=== PATIENT | female | born 1985 | race Caucasian/White ===

== ENCOUNTER 2016-12-21 14:47 | Emergency (ER) | payer OTHER ==
[~2016-12-21] VITALS: Ht 175.3 cm; Wt 91.0 kg
[~2016-12-21 14:47] MED LIST: FOLI5CAP PO; LAMO150 PO
[2016-12-21 14:58] VITALS: BP 119/75; PULSE 89; RESP 22; TEMP 98.9; O2SAT 100
[2016-12-21 15:02] VITALS: BP 119/75; PULSE 95; RESP 22; TEMP 98.9; O2SAT 100
[2016-12-21] MEDS ORDERED: SODIUM CHLOR 0.9% 1000 ML INJ 1,000 ML IV SCH (15:23)
[2016-12-21 15:28] VITALS: O2SAT 99
[2016-12-21] MEDS ORDERED: SODIUM CHLORIDE 0.9% FLUSH 5 ML FLUSH IVF PRN (15:30)
--- NOTE | 2016-12-21 15:48 | RADRPT ---
EXAM DATE/TIME: 12/21/2016 15:30 [facility] COMPARISON: No previous studies available for comparison. INDICATIONS : Pain from fall. MEDICAL HISTORY : None. SURGICAL HISTORY : None. ENCOUNTER: Initial ACUITY: 1 day PAIN SCORE: 5/10 LOCATION: Right shoulder. FINDINGS: Multiple view examination of the right shoulder demonstrates no evidence of fracture or dislocation. The glenohumeral and acromioclavicular joints are maintained. There is normal range of motion betwe en internal and external rotation. Bony mineralization is normal. CONCLUSION: No acute fracture. Saravanan Batista MD on December 21, 2016 at 15:46 Board Certified Radiologist. This report was verified electronically.
--- NOTE | 2016-12-21 15:57 | RADRPT ---
EXAM DATE/TIME: 12/21/2016 15:43 [facility] COMPARISON: CT BRAIN W/O CONTRAST, October 18, 2016, 23:24. INDICATIONS : Seizures. RADIATION DOSE: 37.38 CTDIvol (mGy) MEDICAL HISTORY : Seizures. SURGICAL HISTORY : Vagal nerve stimulator. ENCOUNTER: Initial ACUITY: 1 day PAIN SCALE: 3/10 LOCATION: cranial TECHNIQUE: Multiple contiguous axial images were obtained of the head. Using automated exposure control and adj ustment of the mA and/or kV according to patient size, radiation dose was kept as low as reasonably a chievable to obtain optimal diagnostic quality images. FINDINGS: CEREBRUM: The ventricles are normal for age. No evidence of midline shift, mass lesion, hemorrhage or acute in farction. No extra-axial fluid collections are seen. POSTERIOR FOSSA: The cerebellum and brainstem are intact. The 4th ventricle is midline. The cerebellopontine angle i s unremarkable. EXTRACRANIAL: The visualized portion of the orbits is intact. SKULL: The calvaria is intact. No evidence of skull fracture. CONCLUSION: No acute intracranial disease. Saravanan Batista MD on December 21, 2016 at 15:55 Board Certified Radiologist. This report was verified electronically.
--- NOTE | 2016-12-21 16:02 | RADRPT ---
EXAM DATE/TIME: 12/21/2016 15:43 [facility] COMPARISON: No previous studies available for comparison. INDICATIONS : Seizures. RADIATION DOSE: 17.62 CTDIvol (mGy) MEDICAL HISTORY : Seizures. SURGICAL HISTORY : Vagal nerve stimulator. ENCOUNTER: Initial ACUITY: 1 day PAIN SCALE: 4/10 LOCATION: neck TECHNIQUE: Volumetric scanning of the cervical spine was performed. Multiplanar reconstructions in the sagittal, coronal and oblique axial planes were performed. Using automated exposure control and adjustment o f the mA and/or kV according to patient size, radiation dose was kept as low as reasonably achievable to obtain optimal diagnostic quality images. FINDINGS: VERTEBRAE: Normal vertebral body height. There is no fracture. No canal stenosis. ALIGNMENT: No evidence of subluxation. Facets are well aligned. CONCLUSION: 1. No fracture or subluxation. Saravanan Batista MD on December 21, 2016 at 15:58 Board Certified Radiologist. This report was verified electronically.
--- NOTE | 2016-12-21 16:45 | PD ---
HPI Chief Complaint: Seizure Time Seen by Provider: 15:21 Travel History International Travel<30 days: No Contact w/Intl Traveler<30days: No Traveled to known affect area: No History of Present Illness HPI Patient is a 31-year-old female presents emergency Department with recurrent seizure. Patient has a history of seizure disorders on Lamictal which she states she's been taking. Apparently she had one seizure earlier this morning which she was sitting in a chair and did not have any injuries, they called 911 today because patient had an additional seizure this afternoon in which she apparently hit her head and right shoulder. Patient states she thinks she had a seizure, she states she's been on multiple medication regimens in the past and nothing works to control her seizures. She has been [facility] Patient with complaint on arrival is headache as well as right shoulder pain. PFSH Past Medical History Arthritis: No Asthma: No Autoimmune Disease: No Blood Disorders: No Anxiety: No Depression: No Heart Rhythm Problems: No Cancer: No Cardiovascular Problems: No Chemotherapy: No Chest Pain: No Congestive Heart Failure: No COPD: No Cerebrovascular Accident: No Diabetes: No Diminished Hearing: No Endocrine: No Gastrointestinal Disorders: No GERD: No Genitourinary: No Headaches: Yes Hiatal Hernia: No Hypertension: No Immune Disorder: No Implanted Vascular Access Dvce: Yes Kidney Stones: No Musculoskeletal: No Neurologic: Yes Psychiatric: No Reproductive: No Respiratory: No Immunizations Current: Yes Migraines: Yes Radiation Therapy: No Renal Failure: No Seizures: Yes Sickle Cell Disease: No Sleep Apnea: No Thyroid Disease: No Ulcer: No ?: Not LMP: 12/04/16 Menopausal: No : 2 Para: 2 Ovarian Cysts: Yes Past Surgical History Abdominal Surgery: No AICD: No Arteriovenous Shunt: No Body Medical Devices: VAGAL NERVE STIMULATOR Cardiac Surgery: No Ear Surgery: No Endocrine Surgery: No Eye Surgery: No Genitourinary Surgery: No Gynecologic Surgery: No Insulin Pump: No Joint Replacement: No Neurologic Surgery: Yes (VAGAL NERVE STIMULATOR) Oral Surgery: No Pacemaker: No Thoracic Surgery: No Social History Alcohol Use: No Tobacco Use: No Substance Use: No Allergies-Medications (Allergen,Severity, Reaction): Coded Allergies: No Known Allergies (Verified , 12/21/16) Reported Meds & Prescriptions Reported Meds & Active Scripts Active Reported Folic Acid 5 Mg Cap 1 Mg PO DAILY Lamictal (Lamotrigine) 150 Mg Tab 150 Mg PO DAILY Review of Systems Except as stated in HPI: all other systems reviewed are Neg Physical Exam Narrative GENERAL: Well-developed well-nourished no apparent distress. SKIN: Warm and dry. HEAD: Atraumatic. Normocephalic. EYES: Pupils equal and round. No scleral icterus. No injection or drainage. ENT: No nasal bleeding or discharge. Mucous membranes pink and moist, tongue normal, oropharynx clear. NECK: Trachea midline. No JVD. CARDIOVASCULAR: Regular rate and rhythm. No murmur appreciated. RESPIRATORY: No accessory muscle use. Clear to auscultation. Breath sounds equal bilaterally. GASTROINTESTINAL: Abdomen soft, non-tender, nondistended. Hepatic and splenic margins not palpable. MUSCULOSKELETAL: No obvious deformities. No clubbing. No cyanosis. No edema. Minimal non-bony tenderness the right shoulder, no tenderness right elbow, left shoulder normal, left elbow normal. No midline CT or L-spine tenderness. NEUROLOGICAL: Awake and alert. No obvious cranial nerve deficits. Motor grossly within normal limits. Normal speech. PSYCHIATRIC: Appropriate mood and affect; insight and judgment normal. Data Data Last Documented VS Vital Signs Date Time Temp Pulse Resp B/P Pulse Ox O2 Delivery O2 Flow Rate FiO2 12/21/16 18:00 100 22 111/66 100 Room Air 12/21/16 15:[address] Brain W/O Iv Contrast(Rout) (12/21/16 ) Ct Cerv Spine W/O Contrast (12/21/16 ) Shoulder, Complete (>2vws) (12/21/16 ) Iv Access Insert/Monitor (12/21/16 15:23) Ecg Monitoring (12/21/16 15:23) Oximetry (12/21/16 15:23) Sodium Chlor 0.9% 1000 Ml Inj (Ns 1000 M (12/21/16 15:23) Sodium Chloride 0.9% Flush (Ns Flush) (12/21/16 15:30) Remove Cervical Collar (12/21/16 16:28) Remove Cervical Collar (12/21/16 16:28) MDM Medical Decision Making Medical Screen Exam Complete: Yes Emergency Medical Condition: Yes Differential Diagnosis Recurrent seizure, head injury, neck injury. Narrative Course Patient was roomed emergency department, log rolled off the spine board and had no evidence of injury on her person. CT head and C-spine are negative. Head no additional seizure activity in the emergency department. She is a and had full return of consciousness after postictal phase in the field. Chest with her need for follow-up the neurologist. She is stable for discharge at this time. Discussed continuing her Lamictal therapy. Diagnosis Primary Impression: Recurrent seizures Disposition: DISCHARGE HOME Condition: Stable Mike Moss MD Dec 21, 2016 16:45
[2016-12-21 17:00] VITALS: BP 103/69; PULSE 88; RESP 15; O2SAT 100
[2016-12-21 18:00] VITALS: BP 111/66; PULSE 100; RESP 22; O2SAT 100
== END 2016-12-21 19:30 | disposition home or self-care (01) ==
LOC: NEPE 14:47
DX: R56.9 Unspecified convulsions (principal)
CPT/HCPCS: 70450; 72125; 73030; 96360; 99284; J7030

== ENCOUNTER 2017-05-02 09:26 | Emergency (ER) | payer OTHER ==
[~2017-05-02] VITALS: Ht 170.2 cm; Wt 90.0 kg
[2017-05-02 09:29] VITALS: BP 112/55; PULSE 86; RESP 24; TEMP 98.6; O2SAT 100
[2017-05-02 09:32] VITALS: BP 114/70; PULSE 87; RESP 20; TEMP 98.2; O2SAT 98
[2017-05-02] MEDS ORDERED: MAGN400T2 PO (09:43)
[2017-05-02] MEDS ORDERED: LAMO200T PO (09:43)
[2017-05-02] MEDS ORDERED: FOLI800T PO (09:43)
[2017-05-02] MEDS ORDERED: LORA-373 PO (09:43)
[2017-05-02] MEDS ORDERED: NAPR500T PO (09:43)
[2017-05-02] MEDS ORDERED: TIZA2CAP3 PO (09:43)
[2017-05-02] MEDS ORDERED: TETANUS/DIPHTHERIA TOXOID ADULT 0.5 ML VIAL IM ONE (09:45)
--- NOTE | 2017-05-02 09:59 | PD ---
HPI Chief Complaint: Seizure Time Seen by Provider: 09:37 Travel History International Travel<30 days: No Contact w/Intl Traveler<30days: No Traveled to known affect area: No History of Present Illness HPI 31-year-old female was brought by EMS after the seizure and chin laceration. Patient has history of recurrent seizure. Patient is on Lamictal. Patient's boyfriend states the patient has not taken her medications this morning. Patient had a seizure at home this morning. Patient fell and lacerated her chin. Patient was brought in by EMS. Patient states that she has mild headache. Patient denies any neck pain. Patient complained of jaw pain and laceration to the chin. Patient states that she is not up-to-date with TD booster. Patient denies any chest pain or shortness of breath. Patient denies abdominal pain. Patient denies any focal weakness or numbness of extremity. Patient was on multiple medications in the past. Patient states that she had breakthrough seizures in the past despite multiple medications. Patient has been seen by neurologist including [facility] in [place]. PFSH Past Medical History Arthritis: No Asthma: No Autoimmune Disease: No Blood Disorders: No Anxiety: No Depression: No Heart Rhythm Problems: No Cancer: No Cardiovascular Problems: No Chemotherapy: No Chest Pain: No Congestive Heart Failure: No COPD: No Cerebrovascular Accident: No Diabetes: No Diminished Hearing: No Endocrine: No Gastrointestinal Disorders: No GERD: No Genitourinary: No Headaches: Yes Hiatal Hernia: No Hypertension: No Immune Disorder: No Implanted Vascular Access Dvce: Yes Kidney Stones: No Musculoskeletal: No Neurologic: Yes Psychiatric: No Reproductive: No Respiratory: No Immunizations Current: Yes Migraines: Yes Radiation Therapy: No Renal Failure: No Seizures: Yes Sickle Cell Disease: No Sleep Apnea: No Thyroid Disease: No Ulcer: No ?: Not LMP: 3 weeks ago Menopausal: No : 2 Para: 2 Ovarian Cysts: Yes Past Surgical History Abdominal Surgery: No AICD: No Arteriovenous Shunt: No Body Medical Devices: VAGAL NERVE STIMULATOR Cardiac Surgery: No Ear Surgery: No Endocrine Surgery: No Eye Surgery: No Genitourinary Surgery: No Gynecologic Surgery: No Insulin Pump: No Joint Replacement: No Neurologic Surgery: Yes (VAGAL NERVE STIMULATOR) Oral Surgery: No Pacemaker: No Thoracic Surgery: No Social History Alcohol Use: No Tobacco Use: No Substance Use: No Allergies-Medications (Allergen,Severity, Reaction): Coded Allergies: No Known Allergies (Verified , 12/21/16) Reported Meds & Prescriptions Reported Meds & Active Scripts Active Reported Folic Acid 800 Mcg Tab 1,000 Mcg PO DAILY Lamotrigine 200 Mg Tab 200 Mg PO BID Lorazepam 0.5 Mg Tab 0.5 Mg PO BID PRN Tizanidine (Tizanidine HCl) 2 Mg Cap 2 Mg PO TID Magnesium Oxide 400 Mg Tab 400 Mg PO DAILY Naproxen 500 Mg Tab 500 Mg PO BID Review of Systems General / Constitutional: No: Fever Eyes: No: Visual changes HENT: No: Headaches Cardiovascular: No: Chest Pain or Discomfort Respiratory: No: Shortness of Breath Gastrointestinal: No: Abdominal Pain Genitourinary: No: Dysuria Musculoskeletal: No: Pain Skin: No Rash Neurologic: No: Weakness Psychiatric: No: Depression Endocrine: No: Polydipsia Hematologic/Lymphatic: No: Easy Bruising Physical Exam Narrative GENERAL: Well-nourished, well-developed patient. SKIN: Focused skin assessment warm/dry. HEAD: Normocephalic. Patient has a 2 cm laceration to the chin. EYES: No scleral icterus. No injection or drainage. Pupils 3 mm equal reactive. NECK: Supple, trachea midline. No JVD or lymphadenopathy. CARDIOVASCULAR: Regular rate and rhythm without murmurs, gallops, or rubs. RESPIRATORY: Breath sounds equal bilaterally. No accessory muscle use. GASTROINTESTINAL: Abdomen soft, non-tender, nondistended. MUSCULOSKELETAL: No cyanosis, or edema. BACK: Nontender without obvious deformity. No CVA tenderness. Neurologic exam: Patient is lethargic, typical postictal state. Patient moves all extremities well. No obvious focal neurological deficit. Data Data Last Documented VS Vital Signs Date Time Temp Pulse Resp B/P Pulse Ox O2 Delivery O2 Flow Rate FiO2 05/02/17 10:09 99 05/02/17 09:32 98.2 87 20 114/70 05/02/17 09:29 Room Air Orders Electrocardiogram (05/02/17 09:43) Complete Blood Count With Diff (05/02/17 09:43) Basic Metabolic Panel (Bmp) (05/02/17 09:43) Prothrombin Time / Inr (Pt) (05/02/17 09:43) Act Partial Throm Time (Ptt) (05/02/17 09:43) Ct Brain W/O Iv Contrast(Rout) (05/02/17 09:43) Iv Access Insert/Monitor (05/02/17 09:43) Ecg Monitoring (05/02/17 09:43) Oximetry (05/02/17 09:43) Ed Urine Pregnancytest Poc (05/02/17 09:43) Ct Cerv Spine W/O Contrast (05/02/17 09:43) Ct Facial Bones W/O Iv Cont (05/02/17 09:43) Tetanus/Diphtheria Tox Adult (Tetanus/Di (05/02/17 09:45) Lidocai-Epi 1%-1:100,000 Inj (Xylocaine- (05/02/17 10:00) Ketorolac Inj (Toradol Inj) (05/02/17 11:30) Acetamin-Hydrocod 325-5 Mg ([place] 5-325 (05/02/17 12:00) Labs Laboratory Tests Test 05/02/17 09:50 White Blood Count 5.6 TH/MM3 Red Blood Count 4.49 MIL/MM3 Hemoglobin 12.8 GM/DL Hematocrit 38.4 % Mean Corpuscular Volume 85.7 FL Mean Corpuscular Hemoglobin 28.6 PG Mean Corpuscular Hemoglobin 33.4 % Concent Red Cell Distribution Width 15.0 % Platelet Count 248 TH/MM3 Mean Platelet Volume 8.1 FL Neutrophils (%) (Auto) 66.6 % Lymphocytes (%) (Auto) 23.4 % Monocytes (%) (Auto) 7.4 % Eosinophils (%) (Auto) 1.8 % Basophils (%) (Auto) 0.8 % Neutrophils # (Auto) 3.7 TH/MM3 Lymphocytes # (Auto) 1.3 TH/MM3 Monocytes # (Auto) 0.4 TH/MM3 Eosinophils # (Auto) 0.1 TH/MM3 Basophils # (Auto) 0.0 TH/MM3 CBC Comment DIFF FINAL Differential Comment Prothrombin Time 10.5 SEC Prothromb Time International 1.0 RATIO Ratio Activated Partial 24.5 SEC Thromboplast Time Sodium Level 138 MEQ/L Potassium Level 4.0 MEQ/L Chloride Level 106 MEQ/L Carbon Dioxide Level 26.5 MEQ/L Anion Gap 6 MEQ/L Blood Urea Nitrogen 18 MG/DL Creatinine 1.03 MG/DL Estimat Glomerular Filtration 62 ML/MIN Rate Random Glucose 77 MG/DL Calcium Level 9.1 MG/DL MDM Medical Decision Making Medical Screen Exam Complete: Yes Emergency Medical Condition: Yes Interpretation(s) Last Impressions Maxillofacial CT 05/02/17942 Signed Impressions: Service Date/Time: Tuesday, May 02, 2017 10:01 - CONCLUSION: 1. No acute bony fracture. 2. Chronic right maxillary sinus disease. 3. No significant changes compared to the prior exam. Yoan White MD Head CT 05/02/17942 Signed Impressions: Service Date/Time: Tuesday, May 02, 2017 10:01 - CONCLUSION: Negative for acute process. Vinicio Barry MD FACR Cervical Spine CT 05/02/17942 Signed Impressions: Service Date/Time: Tuesday, May 02, 2017 10:01 - CONCLUSION: 1. Stable subtle anterolisthesis of C4 on C5 and C5 on C6. Flexion and extension views may be obtained if there is clinical concern regarding ligamentous instability. 2. Otherwise, no acute fracture or subluxation. Silvano Lowe MD 11:54 AM. CBC within normal limit. BMP within normal limit. Creatinine 1.03. Differential Diagnosis Differential diagnosis including breakthrough seizure, electrolyte abnormality, chin laceration, intracranial injury, facial bones fracture. Narrative Course 31-year-old female with breakthrough seizure and chin laceration. Toradol 30 mg IV. Lortab 5/325, one tablet by mouth given. TD booster given. Diagnosis Primary Impression: Breakthrough seizure Additional Impression: Chin laceration Qualified Code: S01.81XA - Chin laceration, initial encounter Patient Instructions: General Instructions Additional Instructions: Take medication as directed. Wound care daily. Follow-up with neurologist. Suture removal in 7 days. Med/Other Pt SpecificInfo: Prescription(s) given Scripts Cephalexin (Keflex)500 Mg [id number] Mg PO TID #15 CAP Ref 0 Prov:Jian Ybarra MD 05/02/17 Acetaminophen-Codeine (Tylenol-Codeine #3)300-30 mg Tab1 Tab PO Q6HR PRN (PAIN SCALE 1 TO 10) #20 TAB Prov:Jian Ybarra MD 05/02/17 Disposition: DISCHARGE HOME Condition: Stable Jian Ybarra MD May 02, 2017 09:59
[2017-05-02] MEDS ORDERED: LIDOCAINE 1%/EPINEPHrine 1:100,000 SOLN 20 ML VIAL INFIL ONE (10:00)
[2017-05-02 10:05] LABS: AUTOMATED NEUTROPHIL # 3.7 TH/MM3 (1.8-7.7); BASOPHIL % 0.8 % (0.0-2.0); EOSINOPHIL # 0.1 TH/MM3 (0-0.4); EOSINOPHIL % 1.8 % (0.0-4.0); HEMATOCRIT 38.4 % (35.0-46.0); HEMO FLAGS DIFF FINAL; LYMPH % 23.4 % (9.0-44.0); LYMPHOCYTE # 1.3 TH/MM3 (1.0-4.8); MEAN CELL VOLUME 85.7 FL (80.0-100.0); MEAN CORPUSCULAR HEMOGLOBIN 28.6 PG (27.0-34.0); MEAN CORPUSCULAR HGB CONC 33.4 % (32.0-36.0); MONO % 7.4 % (0.0-8.0); NEUT % 66.6 % (16.0-70.0); PLATELET COUNT 248 TH/MM3 (150-450); RED BLOOD COUNT 4.49 MIL/MM3 (4.00-5.30); WHITE BLOOD COUNT 5.6 TH/MM3 (4.0-11.0)
[2017-05-02 10:09] VITALS: O2SAT 99
[2017-05-02 10:14] LABS: APTT (PATIENT) 24.5 SEC (24.3-30.1); PROTHROMBIN TIME - PATIENT 10.5 SEC (9.8-11.6)
[2017-05-02 10:17] LABS: BICARBONATE 26.5 MEQ/L (21.0-32.0)
--- NOTE | 2017-05-02 10:31 | RADRPT ---
EXAM DATE/TIME: 05/02/2017 10:01 [facility] COMPARISON: CT BRAIN W/O CONTRAST, December 21, 2016, 15:43. INDICATIONS : Seizure. RADIATION DOSE: 40.01 CTDIvol (mGy) MEDICAL HISTORY : Seizures. Migraines. SURGICAL HISTORY : Vagal nerve ENCOUNTER: Initial ACUITY: 1 day PAIN SCALE: Non-responsive LOCATION: cranial TECHNIQUE: Multiple contiguous axial images were obtained of the head. Using automated exposure control and adj ustment of the mA and/or kV according to patient size, radiation dose was kept as low as reasonably a chievable to obtain optimal diagnostic quality images. DICOM format image data is available electro nically for review and comparison. FINDINGS: CEREBRUM: The ventricles are normal for age. No evidence of midline shift, mass lesion, hemorrhage or acute in farction. No extra-axial fluid collections are seen. POSTERIOR FOSSA: The cerebellum and brainstem are intact. The 4th ventricle is midline. The cerebellopontine angle i s unremarkable. EXTRACRANIAL: The visualized portion of the orbits is intact. SKULL: The calvaria is intact. No evidence of skull fracture. CONCLUSION: Negative for acute process. Vinicio Barry MD FACR on May 02, 2017 at 10:29 Board Certified Radiologist. This report was verified electronically.
--- NOTE | 2017-05-02 10:47 | RADRPT ---
EXAM DATE/TIME: 05/02/2017 10:01 [facility] COMPARISON: CT CERVICAL SPINE W/O CONTRAST, December 21, 2016, 15:43. INDICATIONS : Seizure, facial injuries. RADIATION DOSE: 24.14 CTDIvol (mGy) MEDICAL HISTORY : Seizures. Migraines. SURGICAL HISTORY : Vagal nerve stimulator. ENCOUNTER: Initial ACUITY: 1 day PAIN SCALE: Non-responsive LOCATION: neck TECHNIQUE: Volumetric scanning of the cervical spine was performed. Multiplanar reconstructions in the sagittal, coronal and oblique axial planes were performed. Using automated exposure control and adjustment o f the mA and/or kV according to patient size, radiation dose was kept as low as reasonably achievable to obtain optimal diagnostic quality images. DICOM format image data is available electronically f or review and comparison. FINDINGS: Vertebral body heights are intact without evidence of acute bony fracture or focal destruction. Dens is intact. Loss of normal cervical lordosis. There is very subtle anterolisthesis of C4 on C5 and C5 on C6. Overall, this appears similar to prior exam. Remaining sagittal alignment is maintained. Facet s are normally aligned. Prevertebral soft tissues are unremarkable. Visualized lung apices are clear. CONCLUSION: 1. Stable subtle anterolisthesis of C4 on C5 and C5 on C6. Flexion and extension views may be obtaine d if there is clinical concern regarding ligamentous instability. 2. Otherwise, no acute fracture or subluxation. Silvano Lowe MD on May 02, 2017 at 10:38 Board Certified Radiologist. This report was verified electronically.
--- NOTE | 2017-05-02 10:58 | RADRPT ---
EXAM DATE/TIME: 05/02/2017 10:01 [facility] COMPARISON: CT FACIAL BONES W/O CONTRAST, March 25, 2016, 10:58. INDICATIONS : Seizure, laceration to chin. RADIATION DOSE: 64.05 CTDIvol (mGy) MEDICAL HISTORY : Seizures. Migraines. SURGICAL HISTORY : Vagal nerve stimulator. ENCOUNTER: Initial ACUITY: 1 day PAIN SCORE: Non-responsive LOCATION: facial TECHNIQUE: Volumetric scanning of the facial bones was performed. Using automated exposure control and adjustme nt of the mA and/or kV according to patient size, radiation dose was kept as low as reasonably achiev able to obtain optimal diagnostic quality images. DICOM format image data is available electronicOwlr y for review and comparison. FINDINGS: ORBITS: The orbital and infraorbital osseous structures are intact. The retroconal structures have a normal configuration. No radiopaque foreign bodies are seen. NASAL BONE: The nasal bone and maxillary spine are intact ZYGOMATIC ARCHES: Symmetric without evidence of fracture. SINUSES: Chronic sinus disease in the right maxillary sinus. This is stable compared to the prior exam. The re st of the paranasal sinuses are clear. No air-fluid levels are demonstrated. NASAL CAVITY: Stable nasal septal deviation to the right. Aerated keven bullosa involving the left middle turbinat e. SOFT TISSUES: No radiopaque foreign bodies seen. No soft-tissue swelling is seen. INTRACRANIAL: No intracranial air seen. CRIBIFORM PLATE: Grossly intact. The mandible is grossly intact. CONCLUSION: 1. No acute bony fracture. 2. Chronic right maxillary sinus disease. 3. No significant changes compared to the prior exam. Yoan White MD on May 02, 2017 at 10:55 Board Certified Radiologist. This report was verified electronically.
[2017-05-02] MEDS ORDERED: KETOROLAC TROMETHAMINE 30 MG/ML (IVP) VIAL IV PUSH ONE (11:30)
--- NOTE | 2017-05-02 11:51 | PD ---
Physical Exam Time Seen by Provider: 11:28 Data Data Last Documented VS Vital Signs Date Time Temp Pulse Resp B/P Pulse Ox O2 Delivery O2 Flow Rate FiO2 05/02/17 10:09 99 05/02/17 09:32 98.2 87 20 114/70 05/02/17 09:29 Room Air Orders Electrocardiogram (05/02/17 09:43) Complete Blood Count With Diff (05/02/17 09:43) Basic Metabolic Panel (Bmp) (05/02/17 09:43) Prothrombin Time / Inr (Pt) (05/02/17 09:43) Act Partial Throm Time (Ptt) (05/02/17 09:43) Ct Brain W/O Iv Contrast(Rout) (05/02/17 09:43) Iv Access Insert/Monitor (05/02/17 09:43) Ecg Monitoring (05/02/17 09:43) Oximetry (05/02/17 09:43) Ed Urine Pregnancytest Poc (05/02/17 09:43) Ct Cerv Spine W/O Contrast (05/02/17 09:43) Ct Facial Bones W/O Iv Cont (05/02/17 09:43) Tetanus/Diphtheria Tox Adult (Tetanus/Di (05/02/17 09:45) Lidocai-Epi 1%-1:100,000 Inj (Xylocaine- (05/02/17 10:00) Ketorolac Inj (Toradol Inj) (05/02/17 11:30) Acetamin-Hydrocod 325-5 Mg ([place] 5-325 (05/02/17 12:00) Labs Laboratory Tests Test 05/02/17 09:50 White Blood Count 5.6 TH/MM3 Red Blood Count 4.49 MIL/MM3 Hemoglobin 12.8 GM/DL Hematocrit 38.4 % Mean Corpuscular Volume 85.7 FL Mean Corpuscular Hemoglobin 28.6 PG Mean Corpuscular Hemoglobin 33.4 % Concent Red Cell Distribution Width 15.0 % Platelet Count 248 TH/MM3 Mean Platelet Volume 8.1 FL Neutrophils (%) (Auto) 66.6 % Lymphocytes (%) (Auto) 23.4 % Monocytes (%) (Auto) 7.4 % Eosinophils (%) (Auto) 1.8 % Basophils (%) (Auto) 0.8 % Neutrophils # (Auto) 3.7 TH/MM3 Lymphocytes # (Auto) 1.3 TH/MM3 Monocytes # (Auto) 0.4 TH/MM3 Eosinophils # (Auto) 0.1 TH/MM3 Basophils # (Auto) 0.0 TH/MM3 CBC Comment DIFF FINAL Differential Comment Prothrombin Time 10.5 SEC Prothromb Time International 1.0 RATIO Ratio Activated Partial 24.5 SEC Thromboplast Time Sodium Level 138 MEQ/L Potassium Level 4.0 MEQ/L Chloride Level 106 MEQ/L Carbon Dioxide Level 26.5 MEQ/L Anion Gap 6 MEQ/L Blood Urea Nitrogen 18 MG/DL Creatinine 1.03 MG/DL Estimat Glomerular Filtration 62 ML/MIN Rate Random Glucose 77 MG/DL Calcium Level 9.1 MG/DL MDM Medical Record Reviewed: Yes Supervised Visit with TEODORA: No Narrative Course This patient presents after a seizure with a laceration on the chin. I was asked to repair. Please see complete procedural note. The patient verbally consented to laceration repair. Procedures Procedure Narrative LACERATION LOCATION: Chin LENGTH: 2 cm NUMBER OF STITCHES/HEBERT: 7 REPAIR: The area of the laceration was prepped with Betadine and sterilely draped. The laceration was infiltrated with 1% lidocaine with epinephrine. The wound was copiously irrigated and explored without evidence of foreign body , tendon injury or neurovascular injury. The wound was closed using 6-0 PROLENE simple interrupted. This was a single layer repair. A sterile dressing was applied. The patient was advised to keep the dressing clean and dry. Patient tolerated the procedure well. Diagnosis Primary Impression: Breakthrough seizure Additional Impression: Chin laceration Qualified Code: S01.81XA - Chin laceration, initial encounter Patient Instructions: General Instructions Rosalino Michel May 02, 2017 11:50
[2017-05-02] MEDS ORDERED: CEPH-460 PO (11:57)
[2017-05-02] MEDS ORDERED: TYLETAB34 PO (11:57)
[2017-05-02] MEDS ORDERED: ACETAMINOPHEN/HYDROcodone 325 MG/5 MG TAB PO ONE (12:00)
--- NOTE | 2017-05-02 13:46 | EKG ---
Date Performed: 05/02/2017 Time Performed: 09:37:50 PTAGE: 31 years EKG: Sinus rhythm NORMAL ECG Compared to prior tracing no significant change PREVIOUS TRACING : 10/18/2016 22.56 DOCTOR: Adin Sierra Interpretating Date/Time 05/02/2017 13:43:50
== END 2017-05-02 12:15 | disposition home or self-care (01) ==
LOC: NEPC 09:26
DX: R56.9 Unspecified convulsions (principal); S01.81XA Laceration without foreign body of other part of head, initial encounter; J32.0 Chronic maxillary sinusitis; R51 Headache; W18.30XA Fall on same level, unspecified, initial encounter; Z79.899 Other long term (current) drug therapy; Z23 Encounter for immunization
CPT/HCPCS: 12011; 70450; 70486; 72125; 80048; 84703; 85025; 85610; 85730; 90471; 90714; 93005; 96374; 99285; J1885

== ENCOUNTER 2017-05-10 18:45 | Emergency (ER) | payer OTHER ==
[~2017-05-10 18:45] MED LIST changes: +CEPH-460 PO; -FOLI5CAP PO; +FOLI800T PO; -LAMO150 PO; +LAMO200T PO; +LORA-373 PO; +MAGN400T2 PO; +NAPR500T PO; +TIZA2CAP3 PO; +TYLETAB34 PO
[2017-05-10 18:48] VITALS: BP 120/66; PULSE 86; RESP 16; TEMP 99; O2SAT 99
[2017-05-10] MEDS ORDERED: SUMA25TA2 PO (21:58)
--- NOTE | 2017-05-10 22:09 | PD ---
HPI Chief Complaint: Medical Clearance Time Seen by Provider: 21:55 Travel History International Travel<30 days: No Contact w/Intl Traveler<30days: No Traveled to known affect area: No History of Present Illness HPI The patient is a 31-year-old female who presents emergency department for suture removal. The patient states she had sutures placed 7 days ago on the chin. She states the sutures have been in place for 7 days, there is a small amount of scabbing, but there is been no drainage or bleeding. Tetanus is up-to-date. PFSH Past Medical History Arthritis: No Asthma: No Autoimmune Disease: No Blood Disorders: No Anxiety: No Depression: No Heart Rhythm Problems: No Cancer: No Cardiovascular Problems: No Chemotherapy: No Chest Pain: No Congestive Heart Failure: No COPD: No Cerebrovascular Accident: No Diabetes: No Diminished Hearing: No Endocrine: No Gastrointestinal Disorders: No GERD: No Genitourinary: No Headaches: Yes Hiatal Hernia: No Hypertension: No Immune Disorder: No Implanted Vascular Access Dvce: Yes Kidney Stones: No Musculoskeletal: No Neurologic: Yes Psychiatric: No Reproductive: No Respiratory: No Immunizations Current: Yes Migraines: Yes Radiation Therapy: No Renal Failure: No Seizures: Yes Sickle Cell Disease: No Sleep Apnea: No Thyroid Disease: No Ulcer: No ?: Not Menopausal: No : 2 Para: 2 Ovarian Cysts: Yes Past Surgical History Abdominal Surgery: No AICD: No Arteriovenous Shunt: No Body Medical Devices: VAGAL NERVE STIMULATOR Cardiac Surgery: No Ear Surgery: No Endocrine Surgery: No Eye Surgery: No Genitourinary Surgery: No Gynecologic Surgery: No Insulin Pump: No Joint Replacement: No Neurologic Surgery: Yes (VAGAL NERVE STIMULATOR) Oral Surgery: No Pacemaker: No Thoracic Surgery: No Social History Alcohol Use: No Tobacco Use: No Substance Use: No Allergies-Medications (Allergen,Severity, Reaction): Coded Allergies: No Known Allergies (Verified , 12/21/16) Reported Meds & Prescriptions Reported Meds & Active Scripts Active Keflex (Cephalexin) 500 Mg Capsule 500 Mg PO TID Tylenol-Codeine #3 (Acetaminophen-Codeine) 300-30 mg Tab 1 Tab PO Q6HR PRN Reported Sumatriptan (Sumatriptan Succinate) 25 Mg Tab 25 Mg PO ONCE PRN If a satisfactory response has not been obtained at 2 hours, a second dose may be administered Folic Acid 800 Mcg Tab 1,000 Mcg PO DAILY Lamotrigine 200 Mg Tab 200 Mg PO BID Lorazepam 0.5 Mg Tab 0.5 Mg PO BID PRN Tizanidine (Tizanidine HCl) 2 Mg Cap 2 Mg PO TID Magnesium Oxide 400 Mg Tab 400 Mg PO DAILY Naproxen 500 Mg Tab 500 Mg PO BID Review of Systems General / Constitutional: No: Fever HENT: No: Headaches Skin: Positive Other (sutures in the chin for last 7 days with mild scab formation but no drainage or bleeding) Neurologic: No: Headache Physical Exam Narrative GENERAL: Awake, alert, very pleasant 31-year-old female who appears her stated age and is in no acute respiratory distress. SKIN: Focused skin assessment warm/dry. HEAD: Atraumatic. Normocephalic. EYES: No injection or drainage. ENT: No nasal bleeding or discharge. Mucous membranes pink and moist. Patient has [address] in a transverse laceration over the mentum of the chin, mild scab formation but no fluctuance, drainage, or bleeding. NECK: Trachea midline. No JVD. MUSCULOSKELETAL: No obvious deformities. No clubbing. No cyanosis. No edema. NEUROLOGICAL: Awake and alert. No obvious cranial nerve deficits. Motor grossly within normal limits. Normal speech. PSYCHIATRIC: Appropriate mood and affect; insight and judgment normal. Data Data Last Documented VS Vital Signs Date Time Temp Pulse Resp B/P Pulse Ox O2 Delivery O2 Flow Rate FiO2 05/10/17 18:48 99.0 86 16 120/66 99 Room Air [facility] Medical Decision Making Medical Screen Exam Complete: Yes Emergency Medical Condition: Yes Medical Record Reviewed: Yes Differential Diagnosis Differential diagnosis includes wound check, suture removal, laceration. Narrative Course The sutures were removed by myself using a #11 blade and Adson's forceps. I removed 6 sutures. There is no bleeding or drainage noted. No dehiscence. The patient is stable for outpatient follow-up. Procedures Procedure Narrative The sutures were removed by myself using a #11 blade and Adson's forceps. I removed 6 sutures. There is no bleeding or drainage noted. No dehiscence. The patient tolerated the procedure without difficulty. There is no obvious contraindications. Diagnosis Primary Impression: Visit for suture removal Patient Instructions: General Instructions Additional Instructions: Wound care instructions. Follow-up with your primary physician. Return if symptoms worsen or progress. Med/Other Pt SpecificInfo: No Change to Meds Disposition: 01 DISCHARGE HOME Condition: Stable Santos Anne MD May 10, 2017 22:09
== END 2017-05-10 23:21 | disposition home or self-care (01) ==
LOC: NEPD 18:45
DX: S01.81XD Laceration without foreign body of other part of head, subsequent encounter (principal); X58.XXXD Exposure to other specified factors, subsequent encounter; Z48.02 Encounter for removal of sutures
CPT/HCPCS: 99281

== ENCOUNTER 2017-07-18 09:20 | Emergency (ER) | payer OTHER ==
[~2017-07-18 09:20] MED LIST changes: +SUMA25TA2 PO
[2017-07-18 09:24] VITALS: BP 143/74; PULSE 102; RESP 13; TEMP 98.2; O2SAT 100
[2017-07-18] MEDS ORDERED: TOPA25TA8 PO (09:54)
[2017-07-18] MEDS ORDERED: SODIUM CHLOR 0.9% 1000 ML INJ 1,000 ML IV ONE (10:00)
--- NOTE | 2017-07-18 10:14 | PD ---
HPI Chief Complaint: Seizure Time Seen by Provider: 09:54 Travel History International Travel<30 days: No Contact w/Intl Traveler<30days: No Traveled to known affect area: No History of Present Illness HPI This is a 32-year-old female who has a history of seizure who presents to the emergency department having had a witnessed seizure this morning seen by her daughter. She hit her head on the sink and loss consciousness following the episode. Currently she is reporting a severe headache in the right side of her head, constant, with no associated vomiting. She says she feels weak and doesn' t feel well generally. She has seizures that are difficult to manage. She says she can go weeks at a time without a seizure but then can have several in one week. Her medications were recently switched in [place] she's not sure what they are. PFSH Past Medical History Arthritis: No Asthma: No Autoimmune Disease: No Blood Disorders: No Anxiety: No Depression: No Heart Rhythm Problems: No Cancer: No Cardiovascular Problems: No Chemotherapy: No Chest Pain: No Congestive Heart Failure: No COPD: No Cerebrovascular Accident: No Diabetes: No Diminished Hearing: No Endocrine: No Gastrointestinal Disorders: No GERD: No Genitourinary: No Headaches: Yes Hiatal Hernia: No Heparin Induced Thrombocytopen: No Hypertension: No Immune Disorder: No Implanted Vascular Access Dvce: Yes Kidney Stones: No Musculoskeletal: No Neurologic: Yes Psychiatric: No Reproductive: No Respiratory: No Immunizations Current: Yes Migraines: Yes Radiation Therapy: No Renal Failure: No Seizures: Yes Sickle Cell Disease: No Sleep Apnea: No Thyroid Disease: No Ulcer: No ?: Unknown LMP: 07-18-17 Menopausal: No : 2 Para: 2 Ovarian Cysts: Yes Past Surgical History Abdominal Surgery: No AICD: No Arteriovenous Shunt: No Body Medical Devices: VAGAL NERVE STIMULATOR Cardiac Surgery: No Ear Surgery: No Endocrine Surgery: No Eye Surgery: No Genitourinary Surgery: No Gynecologic Surgery: No Insulin Pump: No Joint Replacement: No Neurologic Surgery: Yes (VAGAL NERVE STIMULATOR) Oral Surgery: No Pacemaker: No Thoracic Surgery: No Social History Alcohol Use: No Tobacco Use: No Substance Use: No Allergies-Medications (Allergen,Severity, Reaction): Coded Allergies: No Known Allergies (Verified , 12/21/16) Reported Meds & Prescriptions Reported Meds & Active Scripts Active Reported Topamax (Topiramate) 25 Mg Tab 25 Mg PO BID Folic Acid 800 Mcg Tab 1,000 Mcg PO DAILY Lamotrigine 200 Mg Tab 200 Mg PO BID Lorazepam 0.5 Mg Tab 0.5 Mg PO BID PRN Tizanidine (Tizanidine HCl) 2 Mg Cap 2 Mg PO TID Magnesium Oxide 400 Mg Tab 400 Mg PO DAILY Review of Systems Except as stated in HPI: all other systems reviewed are Neg Physical Exam Narrative GENERAL:Well appearing, no acute distress SKIN: Small subcentimeter abrasion on the right forehead with some dried blood surrounding it HEAD: Atraumatic. Normocephalic. EYES: Pupils equal and round. No injection or drainage. ENT: Moist mucous membranes. Ecchymoses below the chin. NECK: Midline cervical spine tenderness. CARDIOVASCULAR: Regular rate and rhythm. No murmur appreciated. RESPIRATORY: Clear to auscultation. Breath sounds equal bilaterally. GASTROINTESTINAL: Abdomen soft, non-tender, nondistended. MUSCULOSKELETAL: No obvious deformities. NEUROLOGICAL: Awake and alert. No obvious cranial nerve deficits. Moving all extremities. PSYCHIATRIC: Appropriate mood and affect; insight and judgment normal. Data Data Last Documented VS Vital Signs Date Time Temp Pulse Resp B/P (MAP) Pulse Ox O2 Delivery O2 Flow Rate FiO2 07/18/17 11:27 71 18 106/51 (69) 99 Room Air 07/18/17 09:[address] Brain W/O Iv Contrast(Rout) (07/18/17 ) Ct Cerv Spine W/O Contrast (07/18/17 ) ^ Insert Iv (07/18/17 09:54) Complete Blood Count With Diff (07/18/17 09:54) Comprehensive Metabolic Panel (07/18/17 09:54) Magnesium (Mg) (07/18/17 09:54) Sodium Chlor 0.9% 1000 Ml Inj (Ns 1000 M (07/18/17 10:00) Ed Urine Pregnancytest Poc (07/18/17 09:54) Urinalysis - C+S If Indicated (07/18/17 09:54) ^ Insert Iv (07/18/17 09:54) Ketorolac Inj (Toradol Inj) (07/18/17 11:00) Labs Laboratory Tests Test 07/18/17 10:05 07/18/17 11:00 White Blood Count 7.0 TH/MM3 Red Blood Count 4.35 MIL/MM3 Hemoglobin 12.0 GM/DL Hematocrit 36.7 % Mean Corpuscular Volume 84.4 FL Mean Corpuscular Hemoglobin 27.5 PG Mean Corpuscular Hemoglobin Concent 32.6 % Red Cell Distribution Width 14.7 % Platelet Count 231 TH/MM3 Mean Platelet Volume 8.4 FL Neutrophils (%) (Auto) 72.5 % Lymphocytes (%) (Auto) 19.7 % Monocytes (%) (Auto) 6.3 % Eosinophils (%) (Auto) 1.1 % Basophils (%) (Auto) 0.4 % Neutrophils # (Auto) 5.1 TH/MM3 Lymphocytes # (Auto) 1.4 TH/MM3 Monocytes # (Auto) 0.4 TH/MM3 Eosinophils # (Auto) 0.1 TH/MM3 Basophils # (Auto) 0.0 TH/MM3 CBC Comment DIFF FINAL Differential Comment Blood Urea Nitrogen 21 MG/DL Creatinine 1.02 MG/DL Random Glucose 86 MG/DL Total Protein 7.3 GM/DL Albumin 3.8 GM/DL Calcium Level 8.9 MG/DL Magnesium Level 2.1 MG/DL Alkaline Phosphatase 80 U/L Aspartate Amino Transf (AST/SGOT) 9 U/L Alanine Aminotransferase (ALT/SGPT) 10 U/L Total Bilirubin 0.2 MG/DL Sodium Level 141 MEQ/L Potassium Level 4.0 MEQ/L Chloride Level 110 MEQ/L Carbon Dioxide Level 24.9 MEQ/L Anion Gap 6 MEQ/L Estimat Glomerular Filtration Rate 62 ML/MIN Urine Color YELLOW Urine Turbidity HAZY Urine pH 6.5 Urine Specific [place] 1.015 Urine Protein NEG mg/dL Urine Glucose (UA) NEG mg/dL Urine Ketones NEG mg/dL Urine Occult Blood LARGE Urine Nitrite NEG Urine Bilirubin NEG Urine Urobilinogen LESS THAN 2.0 MG/DL Urine Leukocyte Esterase TRACE Urine RBC LESS THAN 1 /hpf Urine WBC 3 /hpf Urine Squamous Epithelial Cells 3 /hpf Urine Bacteria RARE /hpf Urine Mucus FEW /lpf Microscopic Urinalysis Comment CULT NOT INDICATED MDM Medical Decision Making Medical Screen Exam Complete: Yes Emergency Medical Condition: Yes Interpretation(s) Afebrile, mild tachycardia, mild hypertension No leukocytosis Electrolytes are reassuring Urinalysis: No infection Last [address] 07/18/17 0000 Signed Impressions: Service Date/Time: Tuesday, July 18, 2017 10:24 - CONCLUSION: Negative exam. No change from prior. Saravanan Batista MD Cervical Spine CT 07/18/17 0000 Signed Impressions: Service Date/Time: Tuesday, July 18, 2017 10:24 - CONCLUSION: Stabl cervical spine CT. No acute bone injury. Robert Gaxiola MD Differential Diagnosis Intracranial hemorrhage, cervical spine fracture, electrolyte abnormality, urinary tract infection Narrative Course This is a 32-year-old female who presents to the emergency department having had a seizure. She is a history of poorly controlled seizures. She can't tell me her medications. She does have some ecchymoses on her head. CTs were obtained which were reassuring. Labs are all reassuring. I think patient can safely be discharged home. Diagnosis Primary Impression: Breakthrough seizure Patient Instructions: General Instructions Additional Instructions: If you develop severe worsening headache, persistent vomiting, numbness, weakness, difficulty walking or difficulty talking return to the emergency department immediately. Med/Other Pt SpecificInfo: No Change to Meds Disposition: 01 DISCHARGE HOME Condition: Stable Evonne Reyes MD Jul 18, 2017 10:14
[2017-07-18 10:31] LABS: AUTOMATED NEUTROPHIL # 5.1 TH/MM3 (1.8-7.7); BASOPHIL % 0.4 % (0.0-2.0); EOSINOPHIL # 0.1 TH/MM3 (0-0.4); EOSINOPHIL % 1.1 % (0.0-4.0); HEMATOCRIT 36.7 % (35.0-46.0); HEMO FLAGS DIFF FINAL; LYMPH % 19.7 % (9.0-44.0); LYMPHOCYTE # 1.4 TH/MM3 (1.0-4.8); MEAN CELL VOLUME 84.4 FL (80.0-100.0); MEAN CORPUSCULAR HEMOGLOBIN 27.5 PG (27.0-34.0); MEAN CORPUSCULAR HGB CONC 32.6 % (32.0-36.0); MONO % 6.3 % (0.0-8.0); NEUT % 72.5 % (16.0-70.0); PLATELET COUNT 231 TH/MM3 (150-450); RED BLOOD COUNT 4.35 MIL/MM3 (4.00-5.30); RED CELL DISTRIBUTION WIDTH 14.7 % (11.6-17.2)
--- NOTE | 2017-07-18 10:41 | RADRPT ---
EXAM DATE/TIME: 07/18/2017 10:24 [facility] COMPARISON: No previous studies available for comparison. INDICATIONS : Seizure, laceration to left eyebrow. RADIATION DOSE: 36.76 CTDIvol (mGy) MEDICAL HISTORY : Seizures. SURGICAL HISTORY : None. ENCOUNTER: Initial ACUITY: 1 day PAIN SCALE: 3/10 LOCATION: Bilateral cranial TECHNIQUE: Multiple contiguous axial images were obtained of the head. Using automated exposure control and adj ustment of the mA and/or kV according to patient size, radiation dose was kept as low as reasonably a chievable to obtain optimal diagnostic quality images. DICOM format image data is available electro nically for review and comparison. FINDINGS: CEREBRUM: The ventricles are normal for age. No evidence of midline shift, mass lesion, hemorrhage or acute in farction. No extra-axial fluid collections are seen. POSTERIOR FOSSA: The cerebellum and brainstem are intact. The 4th ventricle is midline. The cerebellopontine angle i s unremarkable. EXTRACRANIAL: The visualized portion of the orbits is intact. SKULL: The calvaria is intact. No evidence of skull fracture. CONCLUSION: Negative exam. No change from prior. Saravanan Batista MD on July 18, 2017 at 10:38 Board Certified Radiologist. This report was verified electronically.
--- NOTE | 2017-07-18 10:46 | RADRPT ---
EXAM DATE/TIME: 07/18/2017 10:24 [facility] COMPARISON: CT CERVICAL SPINE W/O CONTRAST, May 02, 2017, 10:01. INDICATIONS : Seizure, laceration to left eyebrow. RADIATION DOSE: 26.42 CTDIvol (mGy) MEDICAL HISTORY : Seizures. SURGICAL HISTORY : None. ENCOUNTER: Initial ACUITY: 1 day PAIN SCALE: 3/10 LOCATION: Bilateral cranial TECHNIQUE: Volumetric scanning of the cervical spine was performed. Multiplanar reconstructions in the sagittal, coronal and oblique axial planes were performed. Using automated exposure control and adjustment o f the mA and/or kV according to patient size, radiation dose was kept as low as reasonably achievable to obtain optimal diagnostic quality images. DICOM format image data is available electronically f or review and comparison. FINDINGS: VERTEBRAE: Normal vertebral body height. ALIGNMENT: No evidence of subluxation. Minimal one or 2 mm decreases C5 on C6 unchanged. C2-C3: The bony spinal canal is normal in size. No evidence of disc bulge or herniation. The neural forami na are bilaterally patent. C3-C4: The bony spinal canal is normal in size. No evidence of disc bulge or herniation. The neural forami na are bilaterally patent. C4-C5: The bony spinal canal is normal in size. No evidence of disc bulge or herniation. The neural forami na are bilaterally patent. C5-C6: The bony spinal canal is normal in size. No evidence of disc bulge or herniation. The neural forami na are bilaterally patent. Mild anterior marginal spurring primarily to the right. C6-C7: The bony spinal canal is normal in size. No evidence of disc bulge or herniation. The neural forami na are bilaterally patent. C7-T1: The bony spinal canal is normal in size. No evidence of disc bulge or herniation. The neural forami na are bilaterally patent. CONCLUSION: Stabl cervical spine CT. No acute bone injury. Robert Gaxiola MD on July 18, 2017 at 10:41 Board Certified Radiologist. This report was verified electronically.
[2017-07-18 10:53] LABS: ALT (GPT) 10 U/L (10-53); ANION GAP 6 MEQ/L (5-15); AST (GOT) 9 U/L (15-37); BICARBONATE 24.9 MEQ/L (21.0-32.0); BLOOD UREA NITROGEN 21 MG/DL (7-18); CHLORIDE 110 MEQ/L (98-107); GLOMERULAR FILTRATION RATE 62 ML/MIN (>89); MAGNESIUM 2.1 MG/DL (1.5-2.5); SODIUM (NA) 141 MEQ/L (136-145)
[2017-07-18 10:55] LABS: ALKALINE PHOSPHATASE 80 U/L (45-117); TOTAL BILIRUBIN ADULT 0.2 MG/DL (0.2-1.0)
[2017-07-18] MEDS ORDERED: KETOROLAC TROMETHAMINE 30 MG/ML (IVP) VIAL IV PUSH ONE (11:00)
[2017-07-18 11:16] LABS: BACTERIA, URINE RARE /hpf; BLOOD, URINE LARGE (NEG); COMMENT (UR) CULT NOT INDICATED; CULTURE IF INDICATED CULT NOT INDICATED; GLUCOSE,URINE NEG (NEG); KETONE, URINE NEG (NEG); MUCUS URINE FEW /lpf (OCC); NITRITE,URINE NEG (NEG); PH, URINE 6.5 (5.0-8.5); SQUAMOUS EPITHELIAL CELL URINE 3 /hpf (0-5); URINE COLOR YELLOW (YELLW/STRAW)
[2017-07-18 11:27] VITALS: BP 106/51; PULSE 71; RESP 18; O2SAT 99
[2017-07-18] MEDS ORDERED: ORPHENADRINE INJ 60 MG/2 ML AMP IM ONE (11:45)
[2017-07-18 11:58] VITALS: BP 106/78
--- NOTE | 2017-07-18 16:14 | EKG ---
Date Performed: 07/18/2017 Time Performed: 09:38:48 PTAGE: 32 years EKG: Sinus rhythm NORMAL ECG Since PREVIOUS TRACING , no significant change noted PREVIOUS TRACIN05/02/2017 09.37 DOCTOR: Fernanda Arana Interpretating Date/Time 07/18/2017 16:12:38
== END 2017-07-18 11:55 | disposition home or self-care (01) ==
LOC: NEPC 09:20
DX: R56.9 Unspecified convulsions (principal); R51 Headache
CPT/HCPCS: 70450; 72125; 80053; 81001; 83735; 84703; 85025; 93005; 96361; 96374; 99285; J1885; J2360; J7030

== ENCOUNTER 2017-11-06 18:32 | Observation (INO) | payer OTHER ==
[~2017-11-06] VITALS: Ht 175.3 cm; Wt 80.0 kg
[~2017-11-06 18:32] MED LIST changes: -CEPH-460 PO; -LORA-373 PO; +LORA0.5T PO; -NAPR500T PO; -SUMA25TA2 PO; +TOPI25 PO; -TYLETAB34 PO
[2017-11-06 18:47] VITALS: BP 101/60; PULSE 90; RESP 16; TEMP 97.7; O2SAT 100
[2017-11-06] MEDS ORDERED: LORazepam 2 MG/ML VIAL IV PUSH ONE (19:45)
--- NOTE | 2017-11-06 20:12 | PD ---
HPI Chief Complaint: Seizure Time Seen by Provider: 19:27 Travel History International Travel<30 days: No Contact w/Intl Traveler<30days: No Traveled to known affect area: No History of Present Illness HPI 32-year-old female that presents to the ED for evaluation of possible seizure. Per patient she doesn't move what happened but per report that I was given by ED nurse patient was apparently found to have a seizure by her kids called the ambulance and found her to be confused. Patient continues to be confused and possibly postictal on my examination. Patient is not really able to give me much information other than yes or no answers. Patient does state that he has a history of seizures and has had this since childhood. Patient cannot really tell me any of the names of her medications that she takes. She does tell me that she did took them today. Per patient her last seizure was this morning and this is her second seizure. She cannot really tell if she had any other seizures today. She cannot really tell me what happened or if she had her head. Unclear if she was given anything for it. She has no allergies to medication. No chest or shortness of breath. No arm orl leg pain. No back or neck pain. PFSH Past Medical History Arthritis: No Asthma: No Autoimmune Disease: No Blood Disorders: No Anxiety: No Depression: No Heart Rhythm Problems: No Cancer: No Cardiovascular Problems: No Chemotherapy: No Chest Pain: No Congestive Heart Failure: No COPD: No Cerebrovascular Accident: No Diabetes: No Diminished Hearing: No Endocrine: No Gastrointestinal Disorders: No GERD: No Genitourinary: No Headaches: Yes Hiatal Hernia: No Heparin Induced Thrombocytopen: No Hypertension: No Immune Disorder: No Implanted Vascular Access Dvce: Yes Kidney Stones: No Musculoskeletal: No Neurologic: Yes Psychiatric: No Reproductive: No Respiratory: No Immunizations Current: Yes Migraines: Yes Radiation Therapy: No Renal Failure: No Seizures: Yes Sickle Cell Disease: No Sleep Apnea: No Thyroid Disease: No Ulcer: No ?: Unknown Menopausal: No : 2 Para: 2 Ovarian Cysts: Yes Past Surgical History Abdominal Surgery: No AICD: No Arteriovenous Shunt: No Body Medical Devices: VAGAL NERVE STIMULATOR Cardiac Surgery: No Ear Surgery: No Endocrine Surgery: No Eye Surgery: No Genitourinary Surgery: No Gynecologic Surgery: No Insulin Pump: No Joint Replacement: No Neurologic Surgery: Yes (VAGAL NERVE STIMULATOR) Oral Surgery: No Pacemaker: No Thoracic Surgery: No Social History Alcohol Use: No Tobacco Use: No Substance Use: No Allergies-Medications (Allergen,Severity, Reaction): Coded Allergies: No Known Allergies (Verified Adverse Reaction, Unknown, 11/06/17) Reported Meds & Prescriptions Reported Meds & Active Scripts Active Reported Topamax (Topiramate) 25 Mg Tab 25 Mg PO BID Folic Acid 800 Mcg Tab 1,000 Mcg PO DAILY Lamotrigine 200 Mg Tab 200 Mg PO BID Lorazepam 0.5 Mg Tab 0.5 Mg PO BID PRN Tizanidine (Tizanidine HCl) 2 Mg Cap 2 Mg PO TID Magnesium Oxide 400 Mg Tab 400 Mg PO DAILY Review of Systems ROS Limitations: Altered Mental Status, Poor Historian Except as stated in HPI: all other systems reviewed are Neg Physical Exam Exam Limitations: Altered Mental Status, Poor Historian Narrative GENERAL: SKIN: Warm and dry. HEAD: Atraumatic. Normocephalic. EYES: Pupils equal and round. No scleral icterus. No injection or drainage. ENT: No nasal bleeding or discharge. Mucous membranes pink and moist. Tongue is midline. No uvula deviation. NECK: Trachea midline. No JVD. CARDIOVASCULAR: Regular rate and rhythm. No murmurs, S3, S4. RESPIRATORY: No accessory muscle use. Clear to auscultation. Breath sounds equal bilaterally. GASTROINTESTINAL: Abdomen soft, non-tender, nondistended. Hepatic and splenic margins not palpable. MUSCULOSKELETAL: Extremities without clubbing, cyanosis, or edema. No obvious deformities. Full range of motion of the upper and lower extremities bilaterally. 2+ pulses bilaterally. NEUROLOGICAL: Awake and alert. No obvious cranial nerve deficits. Motor grossly within normal limits. Five out of 5 muscle strength in the arms and legs. Normal speech. PSYCHIATRIC: Appropriate mood and affect; insight and judgment normal. Data Data Last Documented VS Vital Signs Date Time Temp Pulse Resp B/P (MAP) Pulse Ox O2 Delivery O2 Flow Rate FiO2 11/06/17 18:47 97.7 90 16 101/60 (74) 100 Orders Orders Electrocardiogram (11/06/17 19:33) Complete Blood Count With Diff (11/06/17 19:33) Comprehensive Metabolic Panel (11/06/17 19:33) Magnesium (Mg) (11/06/17 19:33) Thyroid Stimulating Hormone (11/06/17 19:33) Ct Brain W/O Iv Contrast(Rout) (11/06/17 19:33) Iv Access Insert/Monitor (11/06/17 19:33) Ecg Monitoring (11/06/17:33) Oximetry (11/06/17 19:33) Drug Screen, Random Urine (11/06/17 19:33) Alcohol (Ethanol) (11/06/17 19:33) Lorazepam Inj (Ativan Inj) (11/06/17 19:45) Topiramate (Topamax) (11/06/17 19:35) Lamictal (Lamotrigine) (11/06/17 19:35) MDM Medical Decision Making Medical Screen Exam Complete: Yes Emergency Medical Condition: Yes Medical Record Reviewed: Yes Differential Diagnosis Seizure versus breakthrough seizure versus epilepsy versus confusion versus altered mental status Narrative Course 32-year-old female that presents to the ED for evaluation of possible seizure. Patient was properly examined and was found to have signs and symptoms of unclear etiology with possible from seizure. She does have a history of seizures in the past. Fortunately patient is not a good historian does appear to be postictal. Patient has spent at least 20 minutes in the ED and has not improved in mentation. Patient reportedly had another seizure this morning. September, labs and imaging. I did give Ativan to the patient to prevent another seizure. Patient will be moved to a different bed where she can be monitor and case will be signed out to my attending pending disposition and plan. Jordy Talamantes Nov 06, 2017 20:12
[2017-11-06 20:15] VITALS: BP 111/67; PULSE 100; RESP 20; TEMP 98; O2SAT 100
--- NOTE | 2017-11-06 20:32 | RADRPT ---
EXAM DATE/TIME: 11/06/2017 19:53 [facility] COMPARISON: CT BRAIN W/O CONTRAST, July 18, 2017, 10:24. INDICATIONS : Possible seizure. Altered mental status. RADIATION DOSE: 56.35 CTDIvol (mGy) MEDICAL HISTORY : Seizures. SURGICAL HISTORY : None. ENCOUNTER: Initial ACUITY: 1 day PAIN SCALE: Non-responsive LOCATION: cranial TECHNIQUE: Multiple contiguous axial images were obtained of the head. Using automated exposure control and adj ustment of the mA and/or kV according to patient size, radiation dose was kept as low as reasonably a chievable to obtain optimal diagnostic quality images. DICOM format image data is available electro nically for review and comparison. FINDINGS: CEREBRUM: The ventricles are normal for age. No evidence of midline shift, mass lesion, hemorrhage or acute in farction. No extra-axial fluid collections are seen. POSTERIOR FOSSA: The cerebellum and brainstem are intact. The 4th ventricle is midline. The cerebellopontine angle i s unremarkable. EXTRACRANIAL: The visualized portion of the orbits is intact. SKULL: The calvaria is intact. No evidence of skull fracture. CONCLUSION: Negative noncontrast head CT. Stanley Chavez MD on November 06, 2017 at 20:29 Board Certified Radiologist. This report was verified electronically.
[2017-11-06 21:43] LABS: ALT (GPT) 15 U/L (10-53)
[2017-11-06 21:52] LABS: ALKALINE PHOSPHATASE 81 U/L (45-117); TOTAL BILIRUBIN ADULT 0.4 MG/DL (0.2-1.0); TOTAL PROTEIN 7.5 GM/DL (6.4-8.2)
[2017-11-06 21:53] LABS: ALBUMIN 3.7 GM/DL (3.4-5.0); AST (GOT) 30 U/L (15-37); BICARBONATE 23.7 MEQ/L (21.0-32.0); BLOOD UREA NITROGEN 14 MG/DL (7-18); CHLORIDE 102 MEQ/L (98-107); CREATININE 0.84 MG/DL (0.50-1.00); GLOMERULAR FILTRATION RATE 78 ML/MIN (>89); GLUCOSE,RANDOM 72 MG/DL (74-106); SODIUM (NA) 135 MEQ/L (136-145)
[2017-11-06 23:19] VITALS: BP 119/59; PULSE 95; RESP 20; TEMP 98.2; O2SAT 100
[2017-11-07] VITALS (7 sets, daily range): BP systolic 102–134; BP diastolic 62–89; PULSE 88–110; RESP 16–20; TEMP 98.2–98.9; O2SAT 98–100
--- NOTE | 2017-11-07 04:59 | PD ---
Physical Exam Date Seen by Provider: Nov 07, 2017 Time Seen by Provider: 01:00 Narrative Patient slept all night observed she had been given 2 of Ativan by the prior doctor she slept overnight without any recurrence of tonic-clonic activity her CPK is sent and it is 42 which is completely normal which raises suspicion that she did not have a seizure at all discharged follow-up as an outpatient Data Data Last Documented VS Orders Orders Comprehensive Metabolic Panel (11/06/17 19:33) Magnesium (Mg) (11/06/17 19:33) Thyroid Stimulating Hormone (11/06/17 19:33) Ct Brain W/O Iv Contrast(Rout) (11/06/17 19:33) Iv Access Insert/Monitor (11/06/17 19:33) Ecg Monitoring (11/06/17:33) Oximetry (11/06/17 19:33) Drug Screen, Random Urine (11/06/17 19:33) Alcohol (Ethanol) (11/06/17 19:33) Lorazepam Inj (Ativan Inj) (11/06/17 19:45) Topiramate (Topamax) (11/06/17 19:35) Lamictal (Lamotrigine) (11/06/17 19:35) Creatine Kinase (Cpk) (11/07/17 00:35) Urinalysis - C+S If Indicated (11/07/17 06:00) Complete Blood Count With Diff (11/07/17 06:10) Urine Culture (11/07/17 06:20) Psych Screen (11/07/17 08:23) Admit Order (Ed Use Only) (11/07/17 13:23) Labs Laboratory Tests Test 11/06/17 20:00 11/06/17 20:40 11/07/17 00:45 11/07/17 06:14 Blood Urea Nitrogen 14 MG/DL Creatinine 0.84 MG/DL Random Glucose 72 MG/DL Total Protein 7.5 GM/DL Albumin 3.7 GM/DL Calcium Level 9.0 MG/DL Magnesium Level 2.0 MG/DL Alkaline Phosphatase 81 U/L Aspartate Amino Transf (AST/SGOT) 30 U/L Alanine Aminotransferase (ALT/SGPT) 15 U/L Total Bilirubin 0.4 MG/DL Sodium Level 135 MEQ/L Potassium Level 4.3 MEQ/L Chloride Level 102 MEQ/L Carbon Dioxide Level 23.7 MEQ/L Anion Gap 9 MEQ/L Estimat Glomerular Filtration Rate 78 ML/MIN Thyroid Stimulating Hormone 3rd Gen 1.020 uIU/ML Ethyl Alcohol Level LESS THAN 3 MG/DL Lamotrigine (Lamictal) Level 0.7 mcg/mL Total Creatine Kinase 42 U/L White Blood Count 11.3 TH/MM3 Red Blood Count 4.36 MIL/MM3 Hemoglobin 11.6 GM/DL Hematocrit 35.3 % Mean Corpuscular Volume 81.0 FL Mean Corpuscular Hemoglobin 26.6 PG Mean Corpuscular Hemoglobin Concent 32.8 % Red Cell Distribution Width 15.3 % Platelet Count 245 TH/MM3 Mean Platelet Volume 7.8 FL Neutrophils (%) (Auto) 74.2 % Lymphocytes (%) (Auto) 17.5 % Monocytes (%) (Auto) 7.3 % Eosinophils (%) (Auto) 0.4 % Basophils (%) (Auto) 0.6 % Neutrophils # (Auto) 8.4 TH/MM3 Lymphocytes # (Auto) 2.0 TH/MM3 Monocytes # (Auto) 0.8 TH/MM3 Eosinophils # (Auto) 0.1 TH/MM3 Basophils # (Auto) 0.1 TH/MM3 CBC Comment DIFF FINAL Differential Comment Test 11/07/17 06:20 Urine Color YELLOW Urine Turbidity HAZY Urine pH 5.5 Urine Specific [place] 1.028 Urine Protein 30 mg/dL Urine Glucose (UA) NEG mg/dL Urine Ketones 40 mg/dL Urine Occult Blood SMALL Urine Nitrite NEG Urine Bilirubin NEG Urine Urobilinogen LESS THAN 2.0 MG/DL Urine Leukocyte Esterase NEG Urine RBC 1 /hpf Urine WBC 3 /hpf Urine Squamous Epithelial Cells 2 /hpf Urine Bacteria OCC /hpf Urine Mucus MANY /lpf Microscopic Urinalysis Comment CATH-CULTURE IND Urine Opiates Screen NEG Urine Barbiturates Screen NEG Urine Amphetamines Screen NEG Urine Benzodiazepines Screen NEG Urine Cocaine Screen NEG Urine Cannabinoids Screen NEG MDM Supervised Visit with TEODORA: Yes Diagnosis Primary Impression: Seizure-like activity Ambrocio Mckee MD Nov 07, 2017 04:59
[2017-11-07 06:30] LABS: AUTOMATED NEUTROPHIL # 8.4 TH/MM3 (1.8-7.7); BASOPHIL # 0.1 TH/MM3 (0-0.2); BASOPHIL % 0.6 % (0.0-2.0); EOSINOPHIL # 0.1 TH/MM3 (0-0.4); EOSINOPHIL % 0.4 % (0.0-4.0); HEMATOCRIT 35.3 % (35.0-46.0); HEMOGLOBIN 11.6 GM/DL (11.6-15.3); LYMPH % 17.5 % (9.0-44.0); MEAN CORPUSCULAR HEMOGLOBIN 26.6 PG (27.0-34.0); MEAN CORPUSCULAR HGB CONC 32.8 % (32.0-36.0); MEAN PLATELET VOLUME 7.8 FL (7.0-11.0); MONO % 7.3 % (0.0-8.0); MONOCYTE # 0.8 TH/MM3 (0-0.9); NEUT % 74.2 % (16.0-70.0); PLATELET COUNT 245 TH/MM3 (150-450); RED BLOOD COUNT 4.36 MIL/MM3 (4.00-5.30); RED CELL DISTRIBUTION WIDTH 15.3 % (11.6-17.2); WHITE BLOOD COUNT 11.3 TH/MM3 (4.0-11.0)
[2017-11-07 06:37] LABS: BACTERIA, URINE OCC /hpf; BILIRUBIN, URINE NEG (NEG); BLOOD, URINE SMALL (NEG); GLUCOSE,URINE NEG (NEG); KETONE, URINE 40 mg/dL (NEG); MUCUS URINE MANY /lpf (OCC); NITRITE,URINE NEG (NEG); PH, URINE 5.5 (5.0-8.5); SQUAMOUS EPITHELIAL CELL URINE 2 /hpf (0-5); URINE COLOR YELLOW (YELLW/STRAW); URINE LEUKOCYTE ESTERASE NEG (NEG)
--- NOTE | 2017-11-07 13:27 | PD ---
Physical Exam Date Seen by Provider: Nov 07, 2017 Time Seen by Provider: 07:00 Narrative Patient was discussed with me by Dr. Mckee at 7 AM, apparently has history of seizures, now post ictal, but is currently awaiting psychiatric evaluation because she appears to be somewhat disoriented and there is concern that this could be psychiatric rather than related to the seizure. However, while she was waiting for psychiatric evaluation, she had further incontinence episodes and continued disorientation, there is now concerned by nursing staff that this could be seizure related. At this point, my plan would be to admit her for further evaluation for possible underlying atypical seizures. She has no focal neurological deficits but is disoriented in general. Patient is still is fairly disoriented in the ER and considering her medical history, I do not think that I can medically clear at this time. Case was discussed with Dr. Hicks for admission. Data Data Last Documented VS Vital Signs Date Time Temp Pulse Resp B/P (MAP) Pulse Ox O2 Delivery O2 Flow Rate FiO2 11/07/17 10:53 88 18 119/65 (83) 99 Room Air 11/07/17 05:54 98.2 11/06/17 23:19 2.00 Orders Orders Comprehensive Metabolic Panel (11/06/17 19:33) Magnesium (Mg) (11/06/17 19:33) Thyroid Stimulating Hormone (11/06/17 19:33) Ct Brain W/O Iv Contrast(Rout) (11/06/17 19:33) Iv Access Insert/Monitor (11/06/17 19:33) Ecg Monitoring (11/06/17 19:33) Oximetry (11/06/17 19:33) Drug Screen, Random Urine (11/06/17 19:33) Alcohol (Ethanol) (11/06/17 19:33) Lorazepam Inj (Ativan Inj) (11/06/17 19:45) Topiramate (Topamax) (11/06/17 19:35) Lamictal (Lamotrigine) (11/06/17 19:35) Creatine Kinase (Cpk) (11/07/17 00:35) Urinalysis - C+S If Indicated (11/07/17 06:00) Complete Blood Count With Diff (11/07/17 06:10) Urine Culture (11/07/17 06:20) Psych Screen (11/07/17 08:23) Admit Order (Ed Use Only) (11/07/17 13:23) Labs Laboratory Tests Test 11/06/17 20:00 11/06/17 20:40 11/07/17 00:45 11/07/17 06:14 Blood Urea Nitrogen 14 MG/DL Creatinine 0.84 MG/DL Random Glucose 72 MG/DL Total Protein 7.5 GM/DL Albumin 3.7 GM/DL Calcium Level 9.0 MG/DL Magnesium Level 2.0 MG/DL Alkaline Phosphatase 81 U/L Aspartate Amino Transf (AST/SGOT) 30 U/L Alanine Aminotransferase (ALT/SGPT) 15 U/L Total Bilirubin 0.4 MG/DL Sodium Level 135 MEQ/L Potassium Level 4.3 MEQ/L Chloride Level 102 MEQ/L Carbon Dioxide Level 23.7 MEQ/L Anion Gap 9 MEQ/L Estimat Glomerular Filtration Rate 78 ML/MIN Thyroid Stimulating Hormone 3rd Gen 1.020 uIU/ML Ethyl Alcohol Level LESS THAN 3 MG/DL Total Creatine Kinase 42 U/L White Blood Count 11.3 TH/MM3 Red Blood Count 4.36 MIL/MM3 Hemoglobin 11.6 GM/DL Hematocrit 35.3 % Mean Corpuscular Volume 81.0 FL Mean Corpuscular Hemoglobin 26.6 PG Mean Corpuscular Hemoglobin Concent 32.8 % Red Cell Distribution Width 15.3 % Platelet Count 245 TH/MM3 Mean Platelet Volume 7.8 FL Neutrophils (%) (Auto) 74.2 % Lymphocytes (%) (Auto) 17.5 % Monocytes (%) (Auto) 7.3 % Eosinophils (%) (Auto) 0.4 % Basophils (%) (Auto) 0.6 % Neutrophils # (Auto) 8.4 TH/MM3 Lymphocytes # (Auto) 2.0 TH/MM3 Monocytes # (Auto) 0.8 TH/MM3 Eosinophils # (Auto) 0.1 TH/MM3 Basophils # (Auto) 0.1 TH/MM3 CBC Comment DIFF FINAL Differential Comment Test 11/07/17 06:20 Urine Color YELLOW Urine Turbidity HAZY Urine pH 5.5 Urine Specific [place] 1.028 Urine Protein 30 mg/dL Urine Glucose (UA) NEG mg/dL Urine Ketones 40 mg/dL Urine Occult Blood SMALL Urine Nitrite NEG Urine Bilirubin NEG Urine Urobilinogen LESS THAN 2.0 MG/DL Urine Leukocyte Esterase NEG Urine RBC 1 /hpf Urine WBC 3 /hpf Urine Squamous Epithelial Cells 2 /hpf Urine Bacteria OCC /hpf Urine Mucus MANY /lpf Microscopic Urinalysis Comment CATH-CULTURE IND Urine Opiates Screen NEG Urine Barbiturates Screen NEG Urine Amphetamines Screen NEG Urine Benzodiazepines Screen NEG Urine Cocaine Screen NEG Urine Cannabinoids Screen NEG MDM Medical Record Reviewed: Yes Supervised Visit with TEODORA: No Diagnosis Primary Impression: Seizure-like activity Admitting Information Admitting Physician Requests: Admit Patient Instructions: General Instructions, Recurrent Seizures in Adults (ED) Departure Forms: Tests/Procedures Deonte Meyer MD Nov 07, 2017 13:27
[2017-11-07] MEDS ORDERED: BISACODYL 10 MG SUPP RECTAL PRN (13:45)
[2017-11-07] MEDS ORDERED: NALOXONE HCL 0.4 MG/ML AMP IV PUSH PRN (13:45)
[2017-11-07] MEDS ORDERED: LORazepam 0.5 MG TAB PO PRN (13:45)
[2017-11-07] MEDS ORDERED: SENNOSIDES 8.6 MG TAB PO PRN (13:45)
[2017-11-07] MEDS ORDERED: ONDANSETRON HCL 4 MG/2 ML VIAL IVP PRN (13:45)
[2017-11-07] MEDS ORDERED: LACTULOSE SYRUP 20 GM/30 ML CUP PO PRN (13:45)
[2017-11-07] MEDS ORDERED: SODIUM CHLORIDE 0.9% FLUSH 10 ML FLUSH IV FLUSH PRN (13:45)
[2017-11-07] MEDS ORDERED: MAGNESIUM HYDROXIDE SUSP 30 ML CUP PO PRN (13:45)
[2017-11-07] MEDS ORDERED: ACETAMINOPHEN 325 MG TAB PO PRN (13:45)
[2017-11-07] MEDS: DOCUSATE SODIUM 50 MG/SENNA 8.6 MG TAB PO SCH ×2 (14:00→20:07)
[2017-11-07] MEDS: ENOXAPARIN SODIUM 40 MG/0.4 ML SYRINGE SQ SCH (14:39)
[2017-11-07] MEDS ORDERED: PILL SPLITTER OTHER PRN (14:45)
[2017-11-07] MEDS: FOLIC ACID 1 MG TAB PO SCH (15:02)
[2017-11-07] MEDS: SODIUM CHLORIDE 0.9% FLUSH 10 ML FLUSH IV FLUSH SCH ×2 (15:02→20:14)
[2017-11-07] MEDS: lamoTRIgine 100 MG TAB PO SCH ×2 (15:03→20:14)
[2017-11-07] MEDS: MAGNESIUM OXIDE 400 MG TAB PO SCH (15:03)
[2017-11-07] MEDS: TOPIRAMATE 25 MG TAB PO SCH ×2 (15:03→20:15)
[2017-11-08 00:59] VITALS: BP 119/72; PULSE 84; RESP 18; TEMP 98; O2SAT 100
[2017-11-08 03:57] VITALS: BP 126/66; PULSE 84; RESP 18; TEMP 98.3; O2SAT 97
[2017-11-08] MEDS ORDERED: cefTRIAXone 1,000 MG/NS 100 ML IV SCH ×2 (06:00)
[2017-11-08] MEDS: SODIUM CHLOR 0.9% 1000 ML INJ 1,000 ML IV SCH ×2 (06:59→17:41)
[2017-11-08 07:38] LABS: AUTOMATED NEUTROPHIL # 5.3 TH/MM3 (1.8-7.7); BASOPHIL % 0.6 % (0.0-2.0); EOSINOPHIL % 0.5 % (0.0-4.0); HEMATOCRIT 35.4 % (35.0-46.0); LYMPH % 21.7 % (9.0-44.0); LYMPHOCYTE # 1.7 TH/MM3 (1.0-4.8); MEAN CELL VOLUME 80.7 FL (80.0-100.0); MEAN CORPUSCULAR HEMOGLOBIN 27.3 PG (27.0-34.0); MEAN CORPUSCULAR HGB CONC 33.8 % (32.0-36.0); MEAN PLATELET VOLUME 8.1 FL (7.0-11.0); MONO % 8.3 % (0.0-8.0); MONOCYTE # 0.6 TH/MM3 (0-0.9); NEUT % 68.9 % (16.0-70.0); PLATELET COUNT 254 TH/MM3 (150-450); RED BLOOD COUNT 4.38 MIL/MM3 (4.00-5.30); RED CELL DISTRIBUTION WIDTH 15.5 % (11.6-17.2); WHITE BLOOD COUNT 7.7 TH/MM3 (4.0-11.0)
[2017-11-08 07:55] LABS: ALBUMIN 3.7 GM/DL (3.4-5.0); ALT (GPT) 13 U/L (10-53); AST (GOT) 11 U/L (15-37); DIRECT BILIRUBIN ADULT 0.1 MG/DL (0.0-0.2)
[2017-11-08 08:02] LABS: ALBUMIN 3.8 GM/DL (3.4-5.0); ALT (GPT) 12 U/L (10-53); AST (GOT) 14 U/L (15-37); BLOOD UREA NITROGEN 15 MG/DL (7-18); CALCIUM 8.7 MG/DL (8.5-10.1); CHLORIDE 103 MEQ/L (98-107); CREATININE 0.92 MG/DL (0.50-1.00); GLOMERULAR FILTRATION RATE 70 ML/MIN (>89); GLUCOSE,RANDOM 87 MG/DL (74-106); SODIUM (NA) 136 MEQ/L (136-145)
[2017-11-08 08:03] LABS: ALKALINE PHOSPHATASE 80 U/L (45-117); TOTAL BILIRUBIN ADULT 0.4 MG/DL (0.2-1.0); TOTAL PROTEIN 7.4 GM/DL (6.4-8.2)
[2017-11-08 08:20] LABS: ALKALINE PHOSPHATASE 84 U/L (45-117); FREE T4 1.61 NG/DL (0.76-1.46); INDIRECT BILIRUBIN 0.3 MG/DL (0.0-0.8); TOTAL BILIRUBIN ADULT 0.4 MG/DL (0.2-1.0); TOTAL PROTEIN 7.5 GM/DL (6.4-8.2)
[2017-11-08 08:37] LABS: FOLATE GREATER THAN 20.0 NG/ML (3.1-17.5)
[2017-11-08 08:56] VITALS: BP 115/73; PULSE 95; RESP 15; TEMP 96.4; O2SAT 97
[2017-11-08] MEDS: SODIUM CHLORIDE 0.9% FLUSH 10 ML FLUSH IV FLUSH SCH ×2 (09:00→20:59)
[2017-11-08] MEDS: lamoTRIgine 100 MG TAB PO SCH ×2 (09:58→21:00)
[2017-11-08] MEDS: FOLIC ACID 1 MG TAB PO SCH (09:58)
[2017-11-08] MEDS: TOPIRAMATE 25 MG TAB PO SCH ×2 (09:58→21:00)
[2017-11-08] MEDS: DOCUSATE SODIUM 50 MG/SENNA 8.6 MG TAB PO SCH ×2 (09:58→20:59)
--- NOTE | 2017-11-08 11:11 | MB ---
cc: CHRIS GOODE MD DATE OF CONSULTATION: 11/08/2017 REASON FOR CONSULTATION Neuro changes. HISTORY OF PRESENT ILLNESS Miss Santiago is a 52-year-old female presented to [facility] emergency room for evaluation of possible seizure. The patient is a poor historian thus the medical information is obtained from the medical records from the registered nurse who was on the phone with the patient's grandmother. The patient states that she has had epilepsy since she was 10 years of age. She thinks she had grand mal seizures. She states that she is on lamotrigine uncertain about the dose, and on Onfi that has been discontinued. She does not know who she follows up with as her neurologist. She is not sure who prescribes these antiseizure medications for her. There is a vagal nerve stimulator but she is not aware of time that this was placed. She denies history of meningitis or encephalitis. She had an encounter when the patient had several episodes where she blank stares, does not lose consciousness with no loss of bowel or bladder control and no convulsions. REVIEW OF SYSTEMS 12-point review of systems is negative except for what is stated in the HPI. PAST MEDICAL HISTORY: Review of medical records reveal history of seizures or headache. PAST SURGICAL HISTORY Radial nerve stimulator. SOCIAL HISTORY Review of medical records reveal no alcohol, tobacco or substance abuse. ALLERGIES Next no known allergies. MEDICATIONS 1. Topamax 25 mg twice daily. 2. Folic acid 3. Lamotrigine 200 mg twice daily. 4. Lorazepam PHYSICAL EXAMINATION GENERAL: Awake, alert, confused at times poor historian. HEAD, EYES, EARS, NOSE, AND THROAT: Atraumatic, normocephalic. Intact hearing, intact vision. NECK: Supple. No signs of meningeal irritation. RESPIRATORY: Clear to auscultation. No wheezes. CARDIOVASCULAR SYSTEM: Regular rate and rhythm. CHEST: Vagal nerve stimulation left pectoral area. GASTROINTESTINAL: Soft abdomen nontender, nondistended. MUSCULOSKELETAL: No clubbing, cyanosis or edema. NEUROLOGIC: Awake, alert, oriented to person, place, not to time the patient stares blankly intermittently no convulsive activity noted. Moves extremities equally. Reflexes 2+ bilateral symmetrical. Plantar's are bilaterally downgoing. [id number], [id number] and [id number] is intact. PSYCHIATRIC: Psychiatric unable to assess flat mood. DIAGNOSTIC STUDIES - white blood cells 7.7, hemoglobin 12, sodium 136, potassium 3.7, B12 543, T4 is elevated TSH is normal. UDS negative. DIAGNOSTIC IMPRESSION 1. Seizure disorder, possible breakthrough seizures. 2. No information was to whether she has adherent to her medication or not. 3. Continue current antiseizure medications. - Lamotrigine 200 mg twice daily, - Topamax 25 mg b.i.d. 4. Electroencephalogram. 5. MRI brain. 6. Neuro checks q. four hourly. 7. Seizure precautions. 8. DVT prophylaxis 9. GI prophylaxis. Thank you for the opportunity to participate in care of your patient MD KRUPA Owens/beth /9:55 AM /10:32 AM DEVIKA
--- NOTE | 2017-11-08 12:03 | MH ---
cc: STEF VELAZQUEZ MD DATE OF ADMISSION: 11/07/2017 CHIEF COMPLAINT Altered mental status stable. HISTORY OF PRESENT ILLNESS This is a 32-year-old female, with past medical-surgical history significant for seizure disorders vagus nerve stimulator implant. Came to the ER at [facility] with possible seizure and altered mental status. The patient was apparently found to have a seizure by her kids who called the ambulance and found her to be confused. The patient continued to be confused and not able to give or provide any history of this, with discussion with the nurse as well as the ER doctor, Dr. French. The patient not providing any good information and she does not know where she is. She does not remember the name of the medication whether she took them or not. She is not able to tell any seizure history. Other than that nothing significant. PAST MEDICAL HISTORY/PAST SURGICAL HISTORY: As dictated above. SOCIAL HISTORY Does not smoke, drink and take any drugs. Lives at home with her kids. ALLERGIES NO KNOWN DRUG ALLERGIES. MEDICATIONS 1. Topamax 25 mg twice a day. 2. Folic acid 1000 mcg p.o. daily 3. Lamotrigine 200 mg twice a day. 4. Lorazepam 2.5 mg twice a day. 5. Tizanidine 2 mg p.o. t.i.d. 6. Magnesium oxide 400 mg p.o. daily. REVIEW OF SYSTEMS The patient is totally confused, not able to provide any review of systems. PHYSICAL EXAMINATION: This is a 32-year female laying on the bed not in acute distress. VITAL SIGNS: Temperature 96.4, heart rate 95, respiration 15, blood pressure 115/73, O2 saturation 97% room air. HEAD, EYES, EARS, NOSE, AND THROAT: Normocephalic, EOMI. Pupils equal, round and reactive to light, oral mucosa is moist. NECK: The neck is supple. No visible thyromegaly or neck mass. Trachea central. CARDIOVASCULAR SYSTEM: Regular rate and rhythm. LUNGS: Respirations clear to auscultation bilaterally. ABDOMEN: soft, nontender. Bowel sounds. EXTREMITIES: No cyanosis, no clubbing. NEUROLOGIC: Awake and alert but confused. Moving all extremities. SKIN: Warm and dry. PSYCHIATRIC: Psych the patient is cooperative. LABORATORY DATA Include CBC showed WBC count 11.3 now it is 7.7, hemoglobin/hematocrit is normal, The platelet count is normal 254. BMP totally unremarkable except for GFR 70 low. LFTs are normal. B12 534, folic acid level greater then 20. Free T4 is 1.61 high TSH is 1.750. HCG quantitative less than one. Urine toxicology screen negative. His alcohol less than three. Urine examination done shows three WBC in the urine small occult blood, protein of 30. Culture pending. DAYSI pending. RPR pending. Urine culture pending. CT brain done shows nothing acute. ASSESSMENT/PLAN 1. This is 33 female who came to the ER diagnosed with altered mental status alert, unknown etiology, metabolic work up all normal except high Free T4 1.61. Neurology consulted. Neuro Check every 4-hours, a CT brain done does not show any thing acute. Further recommendations per neurology. 2. History of seizure disorder, neurology is on the case for that further recommendation per neurology. 3. Anxiety, Continue Xanax. 4. ? UTI waiting for the culture. The patient on Rocephin 1 gram IV daily. 5. Hallucinations, psychiatry consulted. Further recommendation per psychiatry. 6. DVT prophylaxis Lovenox 40 mg subcutaneous daily. 7. GI prophylaxis Protonix 40 mg p.o. daily. 8. We are going to manage the patient daily basis and make recommendation daily basis. Stef Velazquez MD EA/beth /11:10 AM /11:34 AM
[2017-11-08] MEDS ORDERED: levETIRAcetam INJ 100 ML IV ONE (12:30)
[2017-11-08] MEDS: PANTOPRAZOLE SOD 40 MG DELAYED RELEASE TAB PO SCH (12:46)
[2017-11-08] MEDS ORDERED: diphenhydrAMINE HCL 50 MG CAP PO PRN (14:00)
[2017-11-08] MEDS: ENOXAPARIN SODIUM 40 MG/0.4 ML SYRINGE SQ SCH (14:59)
[2017-11-08] MEDS: MAGNESIUM OXIDE 400 MG TAB PO SCH (15:00)
[2017-11-08] MEDS ORDERED: ONFI10TA PO (16:19)
[2017-11-08 17:05] VITALS: BP 133/90; PULSE 82; RESP 18; TEMP 96.3; O2SAT 98
[2017-11-08 20:00] VITALS: BP 118/63; PULSE 84; RESP 20; TEMP 96.2; O2SAT 99
--- NOTE | 2017-11-08 20:22 | PD.PSY.CON ---
Provisional Diagnosis Admission Date Nov 07, 2017 at 13:26 History of Present Illness Service Psychiatry Consult Requested By Dr. Hicks Reason for Consult hallucinations Primary Care Physician Stef Hicks MD Past Family Social History Coded Allergies: ceftriaxone (Verified Allergy, Mild, ITCHING, REDDNESS, 11/08/17) MRI PRECAUTION (Verified Adverse Reaction, Unknown, VAGUS NERVE STIMULATOR , 11/08/17) NERVE STIMULATOR IN CHEST. PT HAS NO PRODUCT INFO. EXAM CX'D.NURSE EARL FOX/JLA Reported Medications Clobazam (Onfi) 10 Mg Tab, 10 MG PO DAILY, TAB 11/08/17 Topiramate (Topamax) 25 Mg Tab, 25 MG PO BID for Control Seizures, #60 TAB 0 Refills 07/18/17 Folic Acid (Folic Acid) 800 Mcg Tab, 1000 MCG PO DAILY for Nutritional Supplement, TAB 0 Refills 05/02/17 Lamotrigine (Lamotrigine) 200 Mg Tab, 200 MG PO BID for Control Seizures, #60 TAB 0 Refills 05/02/17 Lorazepam (Lorazepam) 0.5 Mg Tab, 0.5 MG PO BID Y for ANXIETY, TAB 0 Refills 05/02/17 Tizanidine (Tizanidine) 2 Mg Cap, 2 MG PO TID for Muscle Spasm, CAP 0 Refills 05/02/17 Magnesium Oxide (Magnesium Oxide) 400 Mg Tab, 400 MG PO DAILY for Nutritional Supplement, TAB 0 Refills 05/02/17 Current Medications Medications (Trade) Dose Ordered Sig/Emy Route Start Time Stop Time Status Last Admin (NS Flush) 2 ml UNSCH PRN IV FLUSH 11/07/17 13:45 (NS Flush) 2 ml BID IV FLUSH 11/07/17 14:00 11/07/17 20:14 (Tylenol) 650 mg Q4H PRN PO 11/07/17 13:45 (Zofran Inj) 4 mg Q6H PRN IVP 11/07/17 13:45 (Lovenox Inj) 40 mg Q24H SQ 11/07/17 15:00 11/08/17 14:59 (Narcan Inj) 0.4 mg UNSCH PRN IV PUSH 11/07/17 13:45 (Taryn-Colace) 1 tab BID PO 11/07/17 14:00 11/08/17 09:58 (Milk Of Magnesia Liq) 30 ml Q12H PRN PO 11/07/17 13:45 (Senokot) 17.2 mg Q12H PRN PO 11/07/17 13:45 (Dulcolax Supp) 10 mg DAILY PRN RECTAL 11/07/17 13:45 (Lactulose Liq) 30 ml DAILY PRN PO 11/07/17 13:45 (Folate) 1 mg DAILY PO 11/07/17 15:00 11/08/17 09:58 (LaMICtal) 200 mg BID PO 11/07/17 15:00 11/08/17 09:58 (Ativan) 0.5 mg BID PRN PO 11/07/17 13:45 (Mag-Ox) 400 mg Q24H PO 11/07/17 15:00 11/08/17 15:00 (Zanaflex) 2 mg TID PO 11/07/17 18:00 11/08/17 18:10 (Topamax) 25 mg BID PO 11/07/17 15:00 11/08/17 09:58 (Pill Splitter) 1 ea UNSCH PRN OTHER 11/07/17 14:45 Sodium Chloride 1,000 ml @ 100 mls/hr Q10H IV 11/08/17 06:15 11/08/17 17:41 (Protonix) 40 mg DAILY PO 11/08/17 12:00 11/08/17 12:46 (Keppra) 500 mg Q12HR PO 11/08/17 21:00 (Ceftin) 500 mg BID PO 11/08/17 21:00 (Benadryl) 50 mg UNSCH PRN PO 11/08/17 14:00 11/08/17 14:59 Physical Exam Vital Signs Vital Signs Date Time Temp Pulse Resp B/P (MAP) Pulse Ox O2 Delivery O2 Flow Rate FiO2 11/08/17 17:05 96.3 82 18 133/90 (104) 98 11/07/17 14:30 Room Air 11/06/17 23:19 2.00 I/O 11/08/17 11/08/17 11/08/17 07:59 15:59 23:59 Intake Total 100 ml 100 ml Balance 100 ml 100 ml Lab Results Test 11/08/17 07:15 White Blood Count 7.7 TH/MM3 Red Blood Count 4.38 MIL/MM3 Hemoglobin 12.0 GM/DL Hematocrit 35.4 % Mean Corpuscular Volume 80.7 FL Mean Corpuscular Hemoglobin 27.3 PG Mean Corpuscular Hemoglobin Concent 33.8 % Red Cell Distribution Width 15.5 % Platelet Count 254 TH/MM3 Mean Platelet Volume 8.1 FL Neutrophils (%) (Auto) 68.9 % Lymphocytes (%) (Auto) 21.7 % Monocytes (%) (Auto) 8.3 % Eosinophils (%) (Auto) 0.5 % Basophils (%) (Auto) 0.6 % Neutrophils # (Auto) 5.3 TH/MM3 Lymphocytes # (Auto) 1.7 TH/MM3 Monocytes # (Auto) 0.6 TH/MM3 Eosinophils # (Auto) 0.0 TH/MM3 Basophils # (Auto) 0.0 TH/MM3 CBC Comment DIFF FINAL Differential Comment Blood Urea Nitrogen 15 MG/DL Creatinine 0.92 MG/DL Random Glucose 87 MG/DL Total Protein 7.4 GM/DL Albumin 3.8 GM/DL Calcium Level 8.7 MG/DL Alkaline Phosphatase 80 U/L Aspartate Amino Transf (AST/SGOT) 14 U/L Alanine Aminotransferase (ALT/SGPT) 12 U/L Total Bilirubin 0.4 MG/DL Sodium Level 136 MEQ/L Potassium Level 3.7 MEQ/L Chloride Level 103 MEQ/L Carbon Dioxide Level 25.0 MEQ/L Anion Gap 8 MEQ/L Estimat Glomerular Filtration Rate 70 ML/MIN Direct Bilirubin 0.1 MG/DL Indirect Bilirubin 0.3 MG/DL Ammonia 20 MCMOL/L Vitamin B12 Level 543 PG/ML Folate GREATER THAN 20.0 NG/ML Free Thyroxine 1.61 NG/DL Thyroid Stimulating Hormone 3rd Gen 1.750 uIU/ML Human Chorionic Gonadotropin, Quant LESS THAN 1 MIU/ML Date/Time Source Procedure Growth Status 11/07/17 06:20 Urine Catheterized Urine Urine Culture - Preliminary NO GROWTH IN 24 HOURS. Resulted Mental Status Examination Appearance: Disheveled Consciousness: Obtunded Orientation: Person Speech: Slow Language: Other (limited) Fund of Knowledge: Inadequate Attention and Concentration: Inadequate Memory: Impaired Mood: Other Affect: Blunt Thought Process & Associations: Disorganized Thought Content: Thought blocking Hallucination Type: Visual Delusion Type: None Suicidal Ideation: No Suicidal Plan: No Suicidal Intention: No Homicidal Ideation: No Homicidal Plan: No Homicidal Intention: No Insight: Poor Judgment: Poor Assessment & Plan Problem List: (1) Unspecified psychosis ICD Codes: F29 - Unspecified psychosis not due to a substance or known physiological condition (2) Recurrent seizures ICD Codes: G40.89 - Recurrent seizures Status: Acute Assessment & Plan Patient is a 32-year-old woman, domiciled with boyfriend and children , with no formal past psychiatric history, no significant substance use history , with a past medical history significant for seizure disorder, chronic migraines, which patient admitted in the ED for recurrent seizures which patient was noted to have hallucinations and psychiatry consult was requested for evaluation. Patient's hallucinations are likely to be secondary to her primary psychiatric illness or more likely due to patient's current seizure episodes and/or postictal states. Resolution of hallucinations like to occur when seizure activity has abated but in the interim, as these hallucinations are distressing and interfering with daily function may start Abilify 5mg PO daily for hallucinations. Patient has not had persistent hallucinations as per history and has not had this occur in the absence of any seizure-like activity therefore unlikely part of primary psychiatric illness. Continue medical management as per neurology and medical team. Consult appreciated Saravanan Guerin MD Nov 08, 2017 20:22
[2017-11-08] MEDS ORDERED: CEFUROXIME AXETIL 500 MG TAB PO SCH (21:00)
[2017-11-08] MEDS ORDERED: levETIRAcetam 500 MG TAB PO SCH (21:00)
[2017-11-09] VITALS (7 sets, daily range): BP systolic 102–130; BP diastolic 57–64; PULSE 67–93; RESP 18–20; TEMP 97–98.6; O2SAT 96–100
[2017-11-09] MEDS: SODIUM CHLOR 0.9% 1000 ML INJ 1,000 ML IV SCH ×3 (02:18→21:43)
--- NOTE | 2017-11-09 07:47 | MG ---
cc: CHRIS BUENO MD Sex: F DATE OF 1985 MEDICAL HISTORY History of seizures, ovarian cyst, VNS implantation, migraines. MEDICATIONS Ceftriaxone. Xanax. Lamictal. Magnesium. Topamax. DESCRIPTION The background activity is slow with intermittent sharp activity noted with periodic epileptic discharges mainly emanating from the right side. There are also sharp wave discharges on C4 with generalized periodic discharges, no lateralized periodic discharges. Hyperventilation was omitted. Photic stimulation did not elicit a driving response. INTERPRETATION This is an abnormal awake and drowsy EEG. There were periodic epileptic discharges noted. Sharp wave activity mainly at the right hemisphere. There was no ictal activity. There were runs of electrographic seizures. Clinical correlation is recommended. Chris Bueno MD [facility]/[place] /11:47 PM /7:00 AM [facility]ERSaqib
[2017-11-09] MEDS ORDERED: levETIRAcetam INJ 100 ML IV ONE (09:45)
[2017-11-09] MEDS: PANTOPRAZOLE SOD 40 MG DELAYED RELEASE TAB PO SCH (09:46)
[2017-11-09] MEDS: DOCUSATE SODIUM 50 MG/SENNA 8.6 MG TAB PO SCH ×2 (09:46→21:00)
[2017-11-09] MEDS: FOLIC ACID 1 MG TAB PO SCH (09:46)
[2017-11-09] MEDS: TOPIRAMATE 25 MG TAB PO SCH ×2 (09:46→21:43)
[2017-11-09] MEDS: lamoTRIgine 100 MG TAB PO SCH ×2 (09:47→21:43)
[2017-11-09] MEDS: SODIUM CHLORIDE 0.9% FLUSH 10 ML FLUSH IV FLUSH SCH ×2 (09:47→21:00)
--- NOTE | 2017-11-09 10:14 | HHI.PR ---
Review/Management Diagnosis Breakthrough Seizures Plan Increase Keppra to 750 mg Q12h Loading dose 1gm this am Seizure precautions Follow u[p EEG next am Diagnosis/Plan: Subjective Active Medications Current Medications Medications (Trade) Dose Ordered Sig/Emy Route Start Time Stop Time Status Last Admin (NS Flush) 2 ml UNSCH PRN IV FLUSH 11/07/17 13:45 (NS Flush) 2 ml BID IV FLUSH 11/07/17 14:00 11/09/17 09:47 (Tylenol) 650 mg Q4H PRN PO 11/07/17 13:45 (Zofran Inj) 4 mg Q6H PRN IVP 11/07/17 13:45 (Lovenox Inj) 40 mg Q24H SQ 11/07/17 15:00 11/08/17 14:59 (Narcan Inj) 0.4 mg UNSCH PRN IV PUSH 11/07/17 13:45 (Taryn-Colace) 1 tab BID PO 11/07/17 14:00 11/09/17 09:46 (Milk Of Magnesia Liq) 30 ml Q12H PRN PO 11/07/17 13:45 (Senokot) 17.2 mg Q12H PRN PO 11/07/17 13:45 (Dulcolax Supp) 10 mg DAILY PRN RECTAL 11/07/17 13:45 (Lactulose Liq) 30 ml DAILY PRN PO 11/07/17 13:45 (Folate) 1 mg DAILY PO 11/07/17 15:00 11/09/17 09:46 (LaMICtal) 200 mg BID PO 11/07/17 15:00 11/09/17 09:47 (Ativan) 0.5 mg BID PRN PO 11/07/17 13:45 (Mag-Ox) 400 mg Q24H PO 11/07/17 15:00 11/08/17 15:00 (Zanaflex) 2 mg TID PO 11/07/17 18:00 11/09/17 09:46 (Topamax) 25 mg BID PO 11/07/17 15:00 11/09/17 09:46 (Pill Splitter) 1 ea UNSCH PRN OTHER 11/07/17 14:45 Sodium Chloride 1,000 ml @ 100 mls/hr Q10H IV 11/08/17 06:15 11/09/17 02:18 (Protonix) 40 mg DAILY PO 11/08/17 12:00 11/09/17 09:46 (Benadryl) 50 mg UNSCH PRN PO 11/08/17 14:00 11/08/17 14:59 (Abilify) 5 mg DAILY PO 11/09/17 09:00 (Keppra) 750 mg Q12HR PO 11/09/17 11:00 Allergies Allergies Coded Allergies ceftriaxone (Verified Allergy, Mild, ITCHING, REDDNESS, 11/08/17) MRI PRECAUTION (Verified Adverse Reaction, Unknown, VAGUS NERVE STIMULATOR, ) Review of Systems All other ROS: ROS reviewed as documented in chart Exam I&O / VS Vital Signs Date Time Temp Pulse Resp B/P (MAP) Pulse Ox O2 Delivery O2 Flow Rate FiO2 11/09/17 09:02 97.9 72 20 118/60 (79) 96 11/09/17 04:28 97.0 67 20 116/57 (76) 100 11/09/17 00:00 97.1 77 18 130/60 (83) 99 11/08/17 20:00 96.2 84 20 118/63 (81) 99 11/08/17 17:05 96.3 82 18 133/90 (104) 98 General: No acute distress Eye: PERRL, EOMI Respiratory: Non-labored respirations Cardiology: Normal rate Musculoskeletal: ROM Neurologic: Oriented, Normal motor, No focal defects, CN II-XII intact, Gag reflex normal, Normal DTR's Psychiatric: Cooperative, Appropriate mood & affect Objective Radiology Results Last [address] 11/06/17 1933 Signed Impressions: Service Date/Time: October 19:53 - CONCLUSION: Negative noncontrast head CT. Stanley Chavez MD Micro and Labs Date/Time Source Procedure Growth Status 11/07/17 06:20 Urine Catheterized Urine Urine Culture - Preliminary NO GROWTH IN 24 HOURS. Resulted Sherri Bueno MD Nov 09, 2017 10:14
[2017-11-09] MEDS ORDERED: levETIRAcetam 250 MG TAB PO SCH (11:00)
[2017-11-09] MEDS: ARIPiprazole 5 MG TAB PO SCH (11:55)
[2017-11-09 13:07] LABS: AUTOMATED NEUTROPHIL # 5.2 TH/MM3 (1.8-7.7); BASOPHIL # 0.1 TH/MM3 (0-0.2); BASOPHIL % 0.7 % (0.0-2.0); EOSINOPHIL # 0.1 TH/MM3 (0-0.4); HEMATOCRIT 40.3 % (35.0-46.0); HEMOGLOBIN 13.5 GM/DL (11.6-15.3); LYMPH % 18.9 % (9.0-44.0); LYMPHOCYTE # 1.4 TH/MM3 (1.0-4.8); MEAN CORPUSCULAR HEMOGLOBIN 27.4 PG (27.0-34.0); MEAN CORPUSCULAR HGB CONC 33.4 % (32.0-36.0); MEAN PLATELET VOLUME 8.6 FL (7.0-11.0); MONO % 7.5 % (0.0-8.0); MONOCYTE # 0.5 TH/MM3 (0-0.9); NEUT % 71.9 % (16.0-70.0); PLATELET COUNT 205 TH/MM3 (150-450); RED BLOOD COUNT 4.92 MIL/MM3 (4.00-5.30); RED CELL DISTRIBUTION WIDTH 15.9 % (11.6-17.2); WHITE BLOOD COUNT 7.2 TH/MM3 (4.0-11.0)
[2017-11-09 13:12] LABS: ALBUMIN 4.2 GM/DL (3.4-5.0); AST (GOT) 21 U/L (15-37); BICARBONATE 22.8 MEQ/L (21.0-32.0); CHLORIDE 110 MEQ/L (98-107); GLOMERULAR FILTRATION RATE 72 ML/MIN (>89); GLUCOSE,RANDOM 69 MG/DL (74-106); SODIUM (NA) 142 MEQ/L (136-145)
[2017-11-09 13:16] LABS: ALKALINE PHOSPHATASE 92 U/L (45-117); ALT (GPT) 18 U/L (10-53); TOTAL BILIRUBIN ADULT 0.3 MG/DL (0.2-1.0)
[2017-11-09 13:26] LABS: BLOOD UREA NITROGEN 9 MG/DL (7-18)
[2017-11-09] MEDS: levETIRAcetam 500 MG TAB PO SCH ×2 (13:37→21:42)
[2017-11-09] MEDS: MAGNESIUM OXIDE 400 MG TAB PO SCH (15:11)
[2017-11-09] MEDS: ENOXAPARIN SODIUM 40 MG/0.4 ML SYRINGE SQ SCH (15:11)
[2017-11-10 03:30] VITALS: BP 109/70; PULSE 99; RESP 18; TEMP 98.3; O2SAT 100
[2017-11-10 07:28] VITALS: BP 119/66; PULSE 91; RESP 18; TEMP 97.7; O2SAT 100
[2017-11-10] MEDS: SODIUM CHLORIDE 0.9% FLUSH 10 ML FLUSH IV FLUSH SCH ×2 (09:00→20:06)
[2017-11-10] MEDS: TOPIRAMATE 25 MG TAB PO SCH ×2 (09:12→20:31)
[2017-11-10] MEDS: levETIRAcetam 500 MG TAB PO SCH ×2 (09:12→20:30)
[2017-11-10] MEDS: ARIPiprazole 5 MG TAB PO SCH (09:12)
[2017-11-10] MEDS: lamoTRIgine 100 MG TAB PO SCH ×2 (09:13→20:30)
[2017-11-10] MEDS: PANTOPRAZOLE SOD 40 MG DELAYED RELEASE TAB PO SCH (09:13)
[2017-11-10] MEDS: SODIUM CHLOR 0.9% 1000 ML INJ 1,000 ML IV SCH ×2 (09:14→17:29)
[2017-11-10] MEDS: DOCUSATE SODIUM 50 MG/SENNA 8.6 MG TAB PO SCH ×2 (09:14→20:31)
[2017-11-10] MEDS: FOLIC ACID 1 MG TAB PO SCH (09:14)
--- NOTE | 2017-11-10 10:11 | HHI.PR ---
Subjective History of Present Illness Patient much better now Awake alert and Orianted x 4 . Neurology/ Psych input noted EEG Abnormal unable to have MRI of Brain because of Vagus nerve stimulator. d/w RN on Duty. no acute issue per RN on Duty. Review of Systems Constitutional Constitutional: Fatigue, Weakness Vitals/Results Vital Signs Vital Signs Date Time Temp Pulse Resp B/P (MAP) Pulse Ox O2 Delivery O2 Flow Rate FiO2 11/10/17 07:28 97.7 91 18 119/66 (83) 100 11/10/17 03:30 98.3 99 18 109/70 (83) 100 11/09/17 23:35 98.3 90 18 116/64 (81) 100 11/09/17 19:55 98.3 93 18 102/64 (77) 100 11/09/17 17:08 98.6 70 20 128/62 (84) 96 11/09/17 12:36 97.9 68 20 120/60 (80) 96 CBC/BMP: 11/09/17 1210 11/09/17 1210 Lab Results Laboratory Tests Test 11/09/17 12:10 White Blood Count 7.2 TH/MM3 Red Blood Count 4.92 MIL/MM3 Hemoglobin 13.5 GM/DL Hematocrit 40.3 % Mean Corpuscular Volume 82.0 FL Mean Corpuscular Hemoglobin 27.4 PG Mean Corpuscular Hemoglobin Concent 33.4 % Red Cell Distribution Width 15.9 % Platelet Count 205 TH/MM3 Mean Platelet Volume 8.6 FL Neutrophils (%) (Auto) 71.9 % Lymphocytes (%) (Auto) 18.9 % Monocytes (%) (Auto) 7.5 % Eosinophils (%) (Auto) 1.0 % Basophils (%) (Auto) 0.7 % Neutrophils # (Auto) 5.2 TH/MM3 Lymphocytes # (Auto) 1.4 TH/MM3 Monocytes # (Auto) 0.5 TH/MM3 Eosinophils # (Auto) 0.1 TH/MM3 Basophils # (Auto) 0.1 TH/MM3 CBC Comment DIFF FINAL Differential Comment Hematology Comments Blood Urea Nitrogen 9 MG/DL Creatinine 0.90 MG/DL Random Glucose 69 MG/DL Total Protein 8.0 GM/DL Albumin 4.2 GM/DL Calcium Level 9.0 MG/DL Alkaline Phosphatase 92 U/L Aspartate Amino Transf (AST/SGOT) 21 U/L Alanine Aminotransferase (ALT/SGPT) 18 U/L Total Bilirubin 0.3 MG/DL Sodium Level 142 MEQ/L Potassium Level 4.0 MEQ/L Chloride Level 110 MEQ/L Carbon Dioxide Level 22.8 MEQ/L Anion Gap 9 MEQ/L Estimat Glomerular Filtration Rate 72 ML/MIN Physical Exam General General Appearance: No Acute Distress, Comfortable Eyes Eye Exam: Pupils Equal, Pupils Reactive, Sclera White, Extraocular Movement Intact Throat Throat Exam: Oral Mucosa [place] & Moist, Oral Pharynx Normal Neck Neck Exam: Neck Supple, Trachea Midline Pulmonary Resp Exam: Clear Bilaterally, Breath Sounds Equal, No Distress Cardiology CV Exam: Regular, Normal Sinus Rhythm Gastrointestinal/Abdomen GI Exam: Soft, Non-Tender, Bowel Sounds Present Musculoskeletal MS Exam: Joints Intact Integumentary Skin Exam: Clear, Warm, Dry, Intact Neurologic Neuro Exam: Moving All Extremities Neuro Remarks Confused. VTE Prophylaxis VTE Prophylaxis Meds: Lovenox PUD Prophylasis PUD Prophylaxis: Protonix Assessment/Plan Assessment/Plan ASSESSMENT/PLAN 1. This is 33 female who came to the ER diagnosed with altered mental status alert, unknown etiology, metabolic work up all normal except high Free T4 1.61. Neurology input noted. EEG Abnormal show seizure activity on Seizure medicine. Neuro Check every 4-hours, a CT brain done does not show any thing acute. MRI Brain unable to do because of vagus nerve stimulator. Further recommendations per neurology. 2. History of seizure disorder, neurology is on the case for that further recommendation per neurology. 3. Anxiety, Continue Xanax. 4. ? UTI ...Urine culture negative. 5. Hallucinations, psychiatry input noted. started on Abilify. Further recommendation per psychiatry. 6. DVT prophylaxis Lovenox 40 mg subcutaneous daily. 7. GI prophylaxis Protonix 40 mg p.o. daily. 8. We are going to manage the patient daily basis and make recommendation daily basis. Plan to discharge if ok with neurology and Psych. Stef Hicks MD Nov 10, 2017 10:11
--- NOTE | 2017-11-10 10:11 | HHI.PR ---
Subjective History of Present Illness Patient seen on 11/09/14 still confused. Neurology/ Psych consulted no acute issue per RN on Duty. Review of Systems Constitutional Constitutional Remarks All ROS unable to obtain because patient confused. Vitals/Results Vital Signs Vital Signs Date Time Temp Pulse Resp B/P (MAP) Pulse Ox O2 Delivery O2 Flow Rate FiO2 11/10/17 07:28 97.7 91 18 119/66 (83) 100 11/10/17 03:30 98.3 99 18 109/70 (83) 100 11/09/17 23:35 98.3 90 18 116/64 (81) 100 11/09/17 19:55 98.3 93 18 102/64 (77) 100 11/09/17 17:08 98.6 70 20 128/62 (84) 96 11/09/17 12:36 97.9 68 20 120/60 (80) 96 CBC/BMP: 11/09/17 1210 11/09/17 1210 Lab Results Laboratory Tests Test 11/09/17 12:10 White Blood Count 7.2 TH/MM3 Red Blood Count 4.92 MIL/MM3 Hemoglobin 13.5 GM/DL Hematocrit 40.3 % Mean Corpuscular Volume 82.0 FL Mean Corpuscular Hemoglobin 27.4 PG Mean Corpuscular Hemoglobin Concent 33.4 % Red Cell Distribution Width 15.9 % Platelet Count 205 TH/MM3 Mean Platelet Volume 8.6 FL Neutrophils (%) (Auto) 71.9 % Lymphocytes (%) (Auto) 18.9 % Monocytes (%) (Auto) 7.5 % Eosinophils (%) (Auto) 1.0 % Basophils (%) (Auto) 0.7 % Neutrophils # (Auto) 5.2 TH/MM3 Lymphocytes # (Auto) 1.4 TH/MM3 Monocytes # (Auto) 0.5 TH/MM3 Eosinophils # (Auto) 0.1 TH/MM3 Basophils # (Auto) 0.1 TH/MM3 CBC Comment DIFF FINAL Differential Comment Hematology Comments Blood Urea Nitrogen 9 MG/DL Creatinine 0.90 MG/DL Random Glucose 69 MG/DL Total Protein 8.0 GM/DL Albumin 4.2 GM/DL Calcium Level 9.0 MG/DL Alkaline Phosphatase 92 U/L Aspartate Amino Transf (AST/SGOT) 21 U/L Alanine Aminotransferase (ALT/SGPT) 18 U/L Total Bilirubin 0.3 MG/DL Sodium Level 142 MEQ/L Potassium Level 4.0 MEQ/L Chloride Level 110 MEQ/L Carbon Dioxide Level 22.8 MEQ/L Anion Gap 9 MEQ/L Estimat Glomerular Filtration Rate 72 ML/MIN Physical Exam General General Appearance: No Acute Distress, Comfortable Eyes Eye Exam: Pupils Equal, Pupils Reactive, Sclera White, Extraocular Movement Intact Throat Throat Exam: Oral Mucosa [place] & Moist, Oral Pharynx Normal Neck Neck Exam: Neck Supple, Trachea Midline Pulmonary Resp Exam: Clear Bilaterally, Breath Sounds Equal, No Distress Cardiology CV Exam: Regular, Normal Sinus Rhythm Gastrointestinal/Abdomen GI Exam: Soft, Non-Tender, Bowel Sounds Present Musculoskeletal MS Exam: Joints Intact Integumentary Skin Exam: Clear, Warm, Dry, Intact Neurologic Neuro Exam: Moving All Extremities Neuro Remarks Confused. VTE Prophylaxis VTE Prophylaxis Meds: Lovenox PUD Prophylasis PUD Prophylaxis: Protonix Assessment/Plan Assessment/Plan ASSESSMENT/PLAN 1. This is 33 female who came to the ER diagnosed with altered mental status alert, unknown etiology, metabolic work up all normal except high Free T4 1.61. Neurology consulted. Neuro Check every 4-hours, a CT brain done does not show any thing acute. Further recommendations per neurology. 2. History of seizure disorder, neurology is on the case for that further recommendation per neurology. 3. Anxiety, Continue Xanax. 4. ? UTI ...Urine culture negative. 5. Hallucinations, psychiatry consulted. Further recommendation per psychiatry. 6. DVT prophylaxis Lovenox 40 mg subcutaneous daily. 7. GI prophylaxis Protonix 40 mg p.o. daily. 8. We are going to manage the patient daily basis and make recommendation daily basis. Discussed Condition with: Patient Stef Hicks MD Nov 10, 2017 10:10
[2017-11-10 11:29] VITALS: BP 106/65; PULSE 85; RESP 18; TEMP 98.3; O2SAT 98
--- NOTE | 2017-11-10 12:03 | HHI.PR ---
Review/Management Diagnosis Breakthrough Seizures Possible etiology is noncompliance with medications Plan Continue Keppra to 750 mg Q12h Seizure precautions Pending a follow up EEG study Continue Lamictal 200 mg twice daily Topamax 200 andly Continue [id number] mg twice daily Patient follows up with Dr. Wilkinson, at [facility] in [place]/ [facility] Diagnosis/Plan: Subjective Subjective Comments No acute events reported No seizure activity reported Patient does not have new complaints Today for a followup EEG VNS need to be interrogated Active Medications Current Medications Medications (Trade) Dose Ordered Sig/Emy Route Start Time Stop Time Status Last Admin (NS Flush) 2 ml UNSCH PRN IV FLUSH 11/07/17 13:45 (NS Flush) 2 ml BID IV FLUSH 11/07/17 14:00 11/09/17 09:47 (Tylenol) 650 mg Q4H PRN PO 11/07/17 13:45 (Zofran Inj) 4 mg Q6H PRN IVP 11/07/17 13:45 (Lovenox Inj) 40 mg Q24H SQ 11/07/17 15:00 11/09/17 15:11 (Narcan Inj) 0.4 mg UNSCH PRN IV PUSH 11/07/17 13:45 (Taryn-Colace) 1 tab BID PO 11/07/17 14:00 11/10/17 09:14 (Milk Of Magnesia Liq) 30 ml Q12H PRN PO 11/07/17 13:45 (Senokot) 17.2 mg Q12H PRN PO 11/07/17 13:45 (Dulcolax Supp) 10 mg DAILY PRN RECTAL 11/07/17 13:45 (Lactulose Liq) 30 ml DAILY PRN PO 11/07/17 13:45 (Folate) 1 mg DAILY PO 11/07/17 15:00 11/10/17 09:14 (LaMICtal) 200 mg BID PO 11/07/17 15:00 11/10/17 09:13 (Ativan) 0.5 mg BID PRN PO 11/07/17 13:45 (Mag-Ox) 400 mg Q24H PO 11/07/17 15:00 11/09/17 15:11 (Zanaflex) 2 mg TID PO 11/07/17 18:00 11/10/17 09:12 (Topamax) 25 mg BID PO 11/07/17 15:00 11/10/17 09:12 (Pill Splitter) 1 ea UNSCH PRN OTHER 11/07/17 14:45 Sodium Chloride 1,000 ml @ 100 mls/hr Q10H IV 11/08/17 06:15 11/10/17 09:14 (Protonix) 40 mg DAILY PO 11/08/17 12:00 11/10/17 09:13 (Benadryl) 50 mg UNSCH PRN PO 11/08/17 14:00 11/08/17 14:59 (Abilify) 5 mg DAILY PO 11/09/17 09:00 11/10/17 09:12 (Keppra) 750 mg Q12HR PO 11/09/17 13:00 11/10/17 09:12 Allergies Allergies Coded Allergies ceftriaxone (Verified Allergy, Mild, ITCHING, REDDNESS, 11/08/17) MRI PRECAUTION (Verified Adverse Reaction, Unknown, VAGUS NERVE STIMULATOR, ) Review of Systems All other ROS: ROS reviewed as documented in chart Exam I&O / VS Vital Signs Date Time Temp Pulse Resp B/P (MAP) Pulse Ox O2 Delivery O2 Flow Rate FiO2 11/10/17 11:29 98.3 85 18 106/65 (79) 98 11/10/17 07:28 97.7 91 18 119/66 (83) 100 11/10/17 03:30 98.3 99 18 109/70 (83) 100 11/09/17 23:35 98.3 90 18 116/64 (81) 100 11/09/17 19:55 98.3 93 18 102/64 (77) 100 11/09/17 17:08 98.6 70 20 128/62 (84) 96 11/09/17 12:36 97.9 68 20 120/60 (80) 96 General: No acute distress Eye: PERRL, EOMI Respiratory: Non-labored respirations Cardiology: Normal rate Musculoskeletal: ROM Neurologic: Oriented, Normal motor, No focal defects, CN II-XII intact, Gag reflex normal, Normal DTR's Psychiatric: Cooperative, Appropriate mood & affect Objective Micro and Labs Laboratory Tests Test 11/09/17 12:10 White Blood Count 7.2 Red Blood Count 4.92 Hemoglobin 13.5 Hematocrit 40.3 Mean Corpuscular Volume 82.0 Mean Corpuscular Hemoglobin 27.4 Mean Corpuscular Hemoglobin Concent 33.4 Red Cell Distribution Width 15.9 Platelet Count 205 Mean Platelet Volume 8.6 Neutrophils (%) (Auto) 71.9 Lymphocytes (%) (Auto) 18.9 Monocytes (%) (Auto) 7.5 Eosinophils (%) (Auto) 1.0 Basophils (%) (Auto) 0.7 Neutrophils # (Auto) 5.2 Lymphocytes # (Auto) 1.4 Monocytes # (Auto) 0.5 Eosinophils # (Auto) 0.1 Basophils # (Auto) 0.1 CBC Comment DIFF FINAL Differential Comment Hematology Comments Blood Urea Nitrogen 9 Creatinine 0.90 Random Glucose 69 Total Protein 8.0 Albumin 4.2 Calcium Level 9.0 Alkaline Phosphatase 92 Aspartate Amino Transf (AST/SGOT) 21 Alanine Aminotransferase (ALT/SGPT) 18 Total Bilirubin 0.3 Sodium Level 142 Potassium Level 4.0 Chloride Level 110 Carbon Dioxide Level 22.8 Anion Gap 9 Estimat Glomerular Filtration Rate 72 Date/Time Source Procedure Growth Status 11/07/17 06:20 Urine Catheterized Urine Urine Culture - Final NO GROWTH IN 48 HOURS. Complete Sherri Bueno MD Nov 10, 2017 12:03
[2017-11-10 15:33] VITALS: BP 97/60; PULSE 78; RESP 18; TEMP 98.2; O2SAT 100
[2017-11-10] MEDS: MAGNESIUM OXIDE 400 MG TAB PO SCH (16:33)
[2017-11-10] MEDS: ENOXAPARIN SODIUM 40 MG/0.4 ML SYRINGE SQ SCH (16:33)
--- NOTE | 2017-11-10 20:39 | MG ---
cc: ALEXANDRE SCHREIBER M.D. Lab No: Date: 11/10/2017 Age: Sex: F Race: ELECTROENCEPHALOGRAM NUMBER [id number] INTRODUCTION A 32-year-old woman with a long history of seizures, primary generalized seizure disorders, LABOR MEDIATOR implant. MEDICATIONS 1. On Keppra. 2. Abilify. 3. Lovenox. 4. Folic acid. 5. Lamictal. 6. Topamax. DESCRIPTION The recording beings synchronous and symmetric with some diffuse theta slowing. A phase reversing sharp wave is seen at epoch 13 over the bitemporal head region. Some diffuse 4 Hz slowing is noted. Poly spike wave discharge just lasting 200 milliseconds bifrontally predominant seen at epoch 35. No other seizure or epileptiform activity is noted. Hyperventilation was performed without significant change in the background. Photic stimulation was performed without significant posterior driving. IMPRESSION She has one burst of polyspike activity noted, very brief. Otherwise diffuse slowing was seen but no prolonged seizure activity was noted. MD MELANY Bello/MAYDA /6:28 PM /8:23 PM
[2017-11-10 20:51] VITALS: BP 106/61; PULSE 98; RESP 18; TEMP 98.1; O2SAT 96
[2017-11-11] MEDS: SODIUM CHLOR 0.9% 1000 ML INJ 1,000 ML IV SCH ×2 (03:04→14:45)
[2017-11-11 03:44] VITALS: BP 117/64; PULSE 93; RESP 18; TEMP 98.3; O2SAT 99
[2017-11-11 07:20] VITALS: BP 112/68; PULSE 79; RESP 16; TEMP 97.9; O2SAT 100
--- NOTE | 2017-11-11 08:40 | HHI.PR ---
Review/Management Diagnosis Breakthrough Seizures Possible etiology is noncompliance with medications Plan Continue Keppra to 750 mg Q12h Seizure precautions Follow up EEG study next am Continue Lamictal 200 mg twice daily Continue [id number] mg twice daily Patient follows up with Dr. Wilkinson, at [facility] in [place]/ [facility] Diagnosis/Plan: Subjective Subjective Comments Patient states that she feels well with no new complaints RN states that the patient had a brief episode of staring, no reported convulsions , tongue biting, loss of sphincter control or post ictal confusion. A follow up EEG has improved with only a brief run of abnormal activity [ polyspike and wave] Active Medications Current Medications Medications (Trade) Dose Ordered Sig/Emy Route Start Time Stop Time Status Last Admin (NS Flush) 2 ml UNSCH PRN IV FLUSH 11/07/17 13:45 (NS Flush) 2 ml BID IV FLUSH 11/07/17 14:00 11/09/17 09:47 (Tylenol) 650 mg Q4H PRN PO 11/07/17 13:45 (Zofran Inj) 4 mg Q6H PRN IVP 11/07/17 13:45 (Lovenox Inj) 40 mg Q24H SQ 11/07/17 15:00 11/10/17 16:33 (Narcan Inj) 0.4 mg UNSCH PRN IV PUSH 11/07/17 13:45 (Taryn-Colace) 1 tab BID PO 11/07/17 14:00 11/10/17 09:14 (Milk Of Magnesia Liq) 30 ml Q12H PRN PO 11/07/17 13:45 (Senokot) 17.2 mg Q12H PRN PO 11/07/17 13:45 (Dulcolax Supp) 10 mg DAILY PRN RECTAL 11/07/17 13:45 (Lactulose Liq) 30 ml DAILY PRN PO 11/07/17 13:45 (Folate) 1 mg DAILY PO 11/07/17 15:00 11/10/17 09:14 (LaMICtal) 200 mg BID PO 11/07/17 15:00 11/10/17 20:30 (Ativan) 0.5 mg BID PRN PO 11/07/17 13:45 (Mag-Ox) 400 mg Q24H PO 11/07/17 15:00 11/10/17 16:33 (Zanaflex) 2 mg TID PO 11/07/17 18:00 11/10/17 09:12 (Topamax) 25 mg BID PO 11/07/17 15:00 11/10/17 20:31 (Pill Splitter) 1 ea UNSCH PRN OTHER 11/07/17 14:45 Sodium Chloride 1,000 ml @ 100 mls/hr Q10H IV 11/08/17 06:15 11/11/17 03:04 (Protonix) 40 mg DAILY PO 11/08/17 12:00 11/10/17 09:13 (Benadryl) 50 mg UNSCH PRN PO 11/08/17 14:00 11/08/17 14:59 (Abilify) 5 mg DAILY PO 11/09/17 09:00 11/10/17 09:12 (Keppra) 750 mg Q12HR PO 11/09/17 13:00 11/10/17 20:30 Allergies Allergies Coded Allergies ceftriaxone (Verified Allergy, Mild, ITCHING, REDDNESS, 11/08/17) MRI PRECAUTION (Verified Adverse Reaction, Unknown, VAGUS NERVE STIMULATOR, ) Review of Systems All other ROS: ROS reviewed as documented in chart Exam I&O / VS Vital Signs Date Time Temp Pulse Resp B/P (MAP) Pulse Ox O2 Delivery O2 Flow Rate FiO2 11/11/17 07:20 97.9 79 16 112/68 (83) 100 11/11/17 03:44 98.3 93 18 117/64 (81) 99 11/10/17 20:51 98.1 98 18 106/61 (76) 96 11/10/17 15:33 98.2 78 18 97/60 (72) 100 11/10/17 11:29 98.3 85 18 106/65 (79) 98 General: No acute distress Eye: PERRL, EOMI Respiratory: Non-labored respirations Cardiology: Normal rate Musculoskeletal: ROM Neurologic: Oriented, Normal motor, No focal defects, CN II-XII intact, Gag reflex normal, Normal DTR's Psychiatric: Cooperative, Appropriate mood & affect Objective Micro and Labs Date/Time Source Procedure Growth Status 11/07/17 06:20 Urine Catheterized Urine Urine Culture - Final NO GROWTH IN 48 HOURS. Complete Sherri Bueno MD Nov 11, 2017 08:40
[2017-11-11] MEDS: SODIUM CHLORIDE 0.9% FLUSH 10 ML FLUSH IV FLUSH SCH (09:00)
[2017-11-11] MEDS: PANTOPRAZOLE SOD 40 MG DELAYED RELEASE TAB PO SCH (09:09)
[2017-11-11] MEDS: FOLIC ACID 1 MG TAB PO SCH (09:09)
[2017-11-11] MEDS: DOCUSATE SODIUM 50 MG/SENNA 8.6 MG TAB PO SCH (09:09)
[2017-11-11] MEDS: ARIPiprazole 5 MG TAB PO SCH (09:09)
[2017-11-11] MEDS: TOPIRAMATE 25 MG TAB PO SCH (09:09)
[2017-11-11] MEDS: levETIRAcetam 500 MG TAB PO SCH (09:10)
[2017-11-11] MEDS: lamoTRIgine 100 MG TAB PO SCH (09:10)
[2017-11-11 11:15] VITALS: BP 104/56; PULSE 84; RESP 16; TEMP 98.4; O2SAT 100
[2017-11-11 13:50] LABS: LAMOTRIGINE 0.7 mcg/mL (4.0-18.0)
[2017-11-11] MEDS: ENOXAPARIN SODIUM 40 MG/0.4 ML SYRINGE SQ SCH (14:40)
[2017-11-11] MEDS: MAGNESIUM OXIDE 400 MG TAB PO SCH (14:40)
--- NOTE | 2017-11-11 17:08 | HHI.PR ---
Subjective History of Present Illness Patient much better now Awake alert and Orianted x 4 . Neurology/ Psych input noted EEG Abnormal unable to have MRI of Brain because of Vagus nerve stimulator. d/w RN on Duty. have seizure episode and neurology wants to keep her another day. Review of Systems Constitutional Constitutional: Fatigue, Weakness Vitals/Results Vital Signs Vital Signs Date Time Temp Pulse Resp B/P (MAP) Pulse Ox O2 Delivery O2 Flow Rate FiO2 11/11/17 11:15 98.4 84 16 104/56 (72) 100 11/11/17 07:20 97.9 79 16 112/68 (83) 100 11/11/17 03:44 98.3 93 18 117/64 (81) 99 11/10/17 20:51 98.1 98 18 106/61 (76) 96 CBC/BMP: 11/09/17 1210 11/09/17 1210 Physical Exam General General Appearance: No Acute Distress, Comfortable Eyes Eye Exam: Pupils Equal, Pupils Reactive, Sclera White, Extraocular Movement Intact Throat Throat Exam: Oral Mucosa [place] & Moist, Oral Pharynx Normal Neck Neck Exam: Neck Supple, Trachea Midline Pulmonary Resp Exam: Clear Bilaterally, Breath Sounds Equal, No Distress Cardiology CV Exam: Regular, Normal Sinus Rhythm Gastrointestinal/Abdomen GI Exam: Soft, Non-Tender, Bowel Sounds Present Musculoskeletal MS Exam: Joints Intact Integumentary Skin Exam: Clear, Warm, Dry, Intact Neurologic Neuro Exam: Moving All Extremities Neuro Remarks Confused. VTE Prophylaxis VTE Prophylaxis Meds: Lovenox PUD Prophylasis PUD Prophylaxis: Protonix Assessment/Plan Assessment/Plan ASSESSMENT/PLAN 1. This is 33 female who came to the ER diagnosed with altered mental status alert, unknown etiology, metabolic work up all normal except high Free T4 1.61. Neurology input noted. EEG Abnormal show seizure activity on Seizure medicine. Neuro Check every 4-hours, a CT brain done does not show any thing acute. MRI Brain unable to do because of vagus nerve stimulator. Further recommendations per neurology. 2. History of seizure disorder, neurology is on the case for that further recommendation per neurology. 3. Anxiety, Continue Xanax. 4. ? UTI ...Urine culture negative. 5. Hallucinations, psychiatry input noted. started on Abilify. Further recommendation per psychiatry. 6. DVT prophylaxis Lovenox 40 mg subcutaneous daily. 7. GI prophylaxis Protonix 40 mg p.o. daily. 8. We are going to manage the patient daily basis and make recommendation daily basis. Patient have seizure episode and neurology wants to keep her another day. Plan to discharge if ok with neurology and Psych. Discussed Condition with: Patient Stef Hicks MD Nov 11, 2017 17:08
[2017-11-11 17:16] VITALS: BP 113/59; PULSE 89; RESP 18; TEMP 98.4; O2SAT 100
[2017-11-11] MEDS ORDERED: KEPP750T PO (22:35)
[2017-11-11] MEDS ORDERED: ENOX40P SQ (22:35)
[2017-11-11] MEDS ORDERED: ABIL10TA8 PO (22:35)
[2017-11-11] MEDS ORDERED: PROT40TA PO (22:35)
[2017-11-11] MEDS ORDERED: SENN8.6T36 PO (22:35)
[2017-11-13 13:53] LABS: TOPIRAMATE LESS THAN 0.3 mcg/mL
== END 2017-11-11 19:26 | disposition left against medical advice (07) ==
LOC: NEPC 18:32 → NEDA 11-07 13:26 → NEPHCDU 11-07 18:06
PROVIDERS: ADMIT Family Medicine; ATTEND Family Medicine
DX: R41.82 Altered mental status, unspecified (principal); G40.909 Epilepsy, unspecified, not intractable, without status epilepticus; F29 Unspecified psychosis not due to a substance or known physiological condition; R44.3 Hallucinations, unspecified; R32 Unspecified urinary incontinence; R94.01 Abnormal electroencephalogram [EEG]; F41.9 Anxiety disorder, unspecified; Z79.899 Other long term (current) drug therapy
CPT/HCPCS: 70450; 80053; 80076; 80175; 80201; 80307; 81001; 82140; 82550; 82607; 82746; 83735; 84439; 84443; 84702; 85025; 86038; 86592; 87086; 95819; 96361; 96365; 96367; 96372; 96375; 99285; G0378; J0696; J1650; J1953; J2060; J7030; Q0163

== ENCOUNTER 2017-11-11 21:54 | Emergency (ER) | payer OTHER ==
[~2017-11-11] VITALS: Ht 175.3 cm; Wt 82.0 kg
[~2017-11-11 21:54] MED LIST changes: +ONFI10TA PO
[2017-11-11 22:35] VITALS: BP 124/78; PULSE 93; RESP 18; O2SAT 100
[2017-11-11] MEDS ORDERED: ENOX40P SQ (22:35)
[2017-11-11] MEDS ORDERED: SENN8.6T36 PO (22:35)
[2017-11-11] MEDS ORDERED: KEPP750T PO (22:35)
[2017-11-11] MEDS ORDERED: ABIL10TA8 PO (22:35)
[2017-11-11] MEDS ORDERED: PROT40TA PO (22:35)
[2017-11-11 22:38] VITALS: BP 124/78; PULSE 93; RESP 18; O2SAT 100
[2017-11-11] MEDS ORDERED: SODIUM CHLORIDE 0.9% FLUSH 10 ML FLUSH IV FLUSH PRN (23:45)
[2017-11-12] VITALS (10 sets, daily range): BP systolic 99–142; BP diastolic 55–88; PULSE 74–113; RESP 16–18; TEMP 98.3; O2SAT 95–100
[2017-11-12 01:52] LABS: AUTOMATED NEUTROPHIL # 7.4 TH/MM3 (1.8-7.7); BASOPHIL % 0.4 % (0.0-2.0); EOSINOPHIL # 0.1 TH/MM3 (0-0.4); EOSINOPHIL % 0.6 % (0.0-4.0); HEMOGLOBIN 11.8 GM/DL (11.6-15.3); LYMPH % 19.6 % (9.0-44.0); MEAN CELL VOLUME 81.9 FL (80.0-100.0); MEAN CORPUSCULAR HEMOGLOBIN 27.6 PG (27.0-34.0); MEAN CORPUSCULAR HGB CONC 33.8 % (32.0-36.0); MEAN PLATELET VOLUME 8.3 FL (7.0-11.0); MONO % 6.3 % (0.0-8.0); MONOCYTE # 0.6 TH/MM3 (0-0.9); NEUT % 73.1 % (16.0-70.0); PLATELET COUNT 240 TH/MM3 (150-450); RED BLOOD COUNT 4.27 MIL/MM3 (4.00-5.30); RED CELL DISTRIBUTION WIDTH 16.1 % (11.6-17.2); WHITE BLOOD COUNT 10.1 TH/MM3 (4.0-11.0)
[2017-11-12 01:58] LABS: ALBUMIN 3.9 GM/DL (3.4-5.0); ALT (GPT) 14 U/L (10-53); AST (GOT) 14 U/L (15-37); BICARBONATE 22.5 MEQ/L (21.0-32.0); BLOOD UREA NITROGEN 7 MG/DL (7-18); CALCIUM 8.8 MG/DL (8.5-10.1); CHLORIDE 107 MEQ/L (98-107); CREATININE 0.94 MG/DL (0.50-1.00); GLOMERULAR FILTRATION RATE 68 ML/MIN (>89); GLUCOSE,RANDOM 86 MG/DL (74-106); SODIUM (NA) 139 MEQ/L (136-145)
[2017-11-12 02:08] LABS: ALKALINE PHOSPHATASE 81 U/L (45-117); TOTAL BILIRUBIN ADULT 0.3 MG/DL (0.2-1.0); TOTAL PROTEIN 7.7 GM/DL (6.4-8.2)
[2017-11-12 02:09] LABS: ACETAMINOPHEN LESS THAN 2.0 MCG/ML (10.0-30.0)
[2017-11-12 02:21] LABS: BILIRUBIN, URINE NEG (NEG); BLOOD, URINE LARGE (NEG); GLUCOSE,URINE NEG (NEG); KETONE, URINE 80 mg/dL (NEG); MUCUS URINE MOD /lpf (OCC); NITRITE,URINE NEG (NEG); PH, URINE 5.5 (5.0-8.5); SQUAMOUS EPITHELIAL CELL URINE 8 /hpf (0-5); URINE COLOR YELLOW (YELLW/STRAW); URINE LEUKOCYTE ESTERASE TRACE (NEG)
--- NOTE | 2017-11-12 02:22 | PD ---
HPI . Altered mental status Chief Complaint: Altered Mental Status Time Seen by Provider: 23:36 Travel History International Travel<30 days: No Contact w/Intl Traveler<30days: No Traveled to known affect area: No History of Present Illness HPI Patient presented to triage until hours earlier wound with acute psychotic behavior, accompanied by police concern for her welfare. After escorted to triage, patient exhibited frankly psychotic behavior and combative in triage, put under a a contract designation by police. Patient was then transferred to [facility], where she was witnessed to be potentially postictal. Patient has a known seizure disorder and has frequent breakthrough seizures. Patient states that she is compliant with her medications the medications of been changed somewhat she's had the addition of medications recently for which she says she's had much better treatment of her seizures and less breakthrough she is seizures as well. Further questioning of the patient regarding auditory hallucinations, patient denies, but is responding more towards internal stimuli when questioned about them. PFSH Past Medical History Narrative Medical Past medical history reviewed Arthritis: No Asthma: No Autoimmune Disease: No Blood Disorders: No Anxiety: No Depression: No Heart Rhythm Problems: No Cancer: No Cardiovascular Problems: No Chemotherapy: No Chest Pain: No Congestive Heart Failure: No COPD: No Cerebrovascular Accident: No Diabetes: No Diminished Hearing: No Endocrine: No Gastrointestinal Disorders: No GERD: No Genitourinary: No Headaches: No Hiatal Hernia: No Heparin Induced Thrombocytopen: No Hypertension: No Immune Disorder: No Implanted Vascular Access Dvce: Yes Kidney Stones: No Musculoskeletal: No Neurologic: Yes Psychiatric: No Reproductive: No Respiratory: No Immunizations Current: Yes Migraines: Yes Radiation Therapy: No Renal Failure: No Seizures: Yes Sickle Cell Disease: No Sleep Apnea: No Thyroid Disease: No Ulcer: No ?: Not Menopausal: No : 2 Para: 2 Ovarian Cysts: Yes Past Surgical History Abdominal Surgery: No AICD: No Arteriovenous Shunt: No Body Medical Devices: VAGAL NERVE STIMULATOR Cardiac Surgery: No Ear Surgery: No Endocrine Surgery: No Eye Surgery: No Genitourinary Surgery: No Gynecologic Surgery: No Insulin Pump: No Joint Replacement: No Neurologic Surgery: Yes (VAGAL NERVE STIMULATOR) Oral Surgery: No Pacemaker: No Thoracic Surgery: No Other Surgery: Yes (VNS IMPLANT ) Social History Alcohol Use: No Tobacco Use: No Substance Use: No Allergies-Medications (Allergen,Severity, Reaction): Coded Allergies: ceftriaxone (Verified Allergy, Mild, ITCHING, REDDNESS, 11/11/17) MRI PRECAUTION (Verified Adverse Reaction, Unknown, VAGUS NERVE STIMULATOR , 11/11/17) NERVE STIMULATOR IN CHEST. PT HAS NO PRODUCT INFO. EXAM CX'D.NURSE EARL INFORMED/JLA Reported Meds & Prescriptions Reported Meds & Active Scripts Active Reported Lovenox Inj (Enoxaparin Sodium) 40 Mg/0.4 Ml Syr 40 Mg SQ DAILY Protonix (Pantoprazole Sodium) 40 Mg Tab 40 Mg PO DAILY Abilify (Aripiprazole) 10 Mg Tab 5 Mg PO DAILY Senna-Tabs (Sennosides) 8.6 Mg Tab 8.6 Mg PO BID Keppra (Levetiracetam) 750 Mg Tab 750 Mg PO BID Onfi (Clobazam) 10 Mg Tab 10 Mg PO DAILY Topamax (Topiramate) 25 Mg Tab 25 Mg PO BID Folic Acid 800 Mcg Tab 1,000 Mcg PO DAILY Lamotrigine 200 Mg Tab 200 Mg PO BID Lorazepam 0.5 Mg Tab 0.5 Mg PO BID PRN Tizanidine (Tizanidine HCl) 2 Mg Cap 2 Mg PO TID Magnesium Oxide 400 Mg Tab 400 Mg PO DAILY Narrative Medication Allergies and medications reviewed Review of Systems General / Constitutional: No: Fever Eyes: No: Visual changes HENT: No: Headaches Cardiovascular: No: Chest Pain or Discomfort Respiratory: No: Shortness of Breath Gastrointestinal: No: Abdominal Pain Genitourinary: No: Dysuria Musculoskeletal: No: Pain Skin: No Rash Neurologic: Positive: Seizures, No: Weakness Psychiatric: Positive: Disorder of Thought, No: Anxiety, Depression, Suicidal Ideations, Homicidal Ideation Endocrine: No: Polydipsia Hematologic/Lymphatic: No: Easy Bruising Physical Exam Narrative GENERAL: Awake and alert oriented 3, C psychiatric history above and below SKIN: Warm and dry. Color is normal no diaphoresis cyanosis or pallor HEAD: Atraumatic. Normocephalic. EYES: Pupils equal and round. No scleral icterus. No injection or drainage. ENT: No nasal bleeding or discharge. Mucous membranes pink and moist. NECK: Trachea midline. No JVD. Supple full range of motion CARDIOVASCULAR: Regular rate and rhythm. S1-S2 no murmurs or gallops RESPIRATORY: No accessory muscle use. Clear to auscultation. Breath sounds equal bilaterally. GASTROINTESTINAL: Abdomen soft, non-tender, nondistended. Hepatic and splenic margins not palpable. MUSCULOSKELETAL: Extremities without clubbing, cyanosis, or edema. No obvious deformities. NEUROLOGICAL: Awake and alert. No obvious cranial nerve deficits. Motor grossly within normal limits. Five out of 5 muscle strength in the arms and legs. Normal speech. PSYCHIATRIC: Patient is responding to internal stimuli, see note from behavior in triage and details of Villar act designation Data Data Last Documented VS Vital Signs Date Time Temp Pulse Resp B/P (MAP) Pulse Ox O2 Delivery O2 Flow Rate FiO2 11/12/17 01:25 105 18 142/67 (92) 99 Room Air Orders Orders Psych Screen (11/11/17 22:56) Complete Blood Count With Diff (11/11/17 23:36) Comprehensive Metabolic Panel (11/11/17 23:36) Thyroid Stimulating Hormone (11/11/17 23:36) Urinalysis - C+S If Indicated (11/11/17 23:36) Blood Glucose (11/11/17 23:36) Ecg Monitoring (11/11/17 23:36) Iv Access Insert/Monitor (11/11/17 23:36) Oximetry (11/11/17 23:36) Sodium Chloride 0.9% Flush (Ns Flush) (11/11/17 23:45) Drug Screen, Random Urine (11/11/17 23:36) Alcohol (Ethanol) (11/11/17 23:36) Tylenol (Acetaminophen) (11/11/17 23:36) Salicylates (Aspirin) (11/11/17 23:36) Labs Laboratory Tests Test 11/12/17 01:10 11/12/17 01:50 White Blood Count 10.1 TH/MM3 Red Blood Count 4.27 MIL/MM3 Hemoglobin 11.8 GM/DL Hematocrit 35.0 % Mean Corpuscular Volume 81.9 FL Mean Corpuscular Hemoglobin 27.6 PG Mean Corpuscular Hemoglobin Concent 33.8 % Red Cell Distribution Width 16.1 % Platelet Count 240 TH/MM3 Mean Platelet Volume 8.3 FL Neutrophils (%) (Auto) 73.1 % Lymphocytes (%) (Auto) 19.6 % Monocytes (%) (Auto) 6.3 % Eosinophils (%) (Auto) 0.6 % Basophils (%) (Auto) 0.4 % Neutrophils # (Auto) 7.4 TH/MM3 Lymphocytes # (Auto) 2.0 TH/MM3 Monocytes # (Auto) 0.6 TH/MM3 Eosinophils # (Auto) 0.1 TH/MM3 Basophils # (Auto) 0.0 TH/MM3 CBC Comment DIFF FINAL Differential Comment Blood Urea Nitrogen 7 MG/DL Creatinine 0.94 MG/DL Random Glucose 86 MG/DL Total Protein 7.7 GM/DL Albumin 3.9 GM/DL Calcium Level 8.8 MG/DL Alkaline Phosphatase 81 U/L Aspartate Amino Transf (AST/SGOT) 14 U/L Alanine Aminotransferase (ALT/SGPT) 14 U/L Total Bilirubin 0.3 MG/DL Sodium Level 139 MEQ/L Potassium Level 3.3 MEQ/L Chloride Level 107 MEQ/L Carbon Dioxide Level 22.5 MEQ/L Anion Gap 10 MEQ/L Estimat Glomerular Filtration Rate 68 ML/MIN Thyroid Stimulating Hormone 3rd Gen 2.050 uIU/ML Salicylates Level LESS THAN 1.7 MG/DL Acetaminophen Level LESS THAN 2.0 MCG/ML Ethyl Alcohol Level LESS THAN 3 MG/DL MDM Medical Decision Making Medical Screen Exam Complete: Yes Emergency Medical Condition: Yes Medical Record Reviewed: Yes Differential Diagnosis Seizures, breakthrough seizures, psychotic behavior, exacerbation of psychiatric disorder Narrative Course Patient laboratory examinations reviewed, no significant abdomen is. Patient cleared for psychiatric evaluation Diagnosis Primary Impression: Breakthrough seizure Additional Impression: Psychiatric disorder Admitting Information Admitting Physician Requests: Gelacio Bullard MD Nov 12, 2017 02:22
[2017-11-12] MEDS ORDERED: HALOPERIDOL LACTATE 5 MG/ML AMP IM ONE (03:15)
[2017-11-12] MEDS ORDERED: LORazepam 2 MG/ML VIAL IV PUSH ONE (03:15)
[2017-11-12] MEDS ORDERED: diphenhydrAMINE HCL 50 MG/ML VIAL IV PUSH ONE (03:15)
[2017-11-12] MEDS ORDERED: SODIUM CHLOR 0.9% 1000 ML INJ 1,000 ML IV ONE (06:30)
[2017-11-12] MEDS ORDERED: levETIRAcetam 500 MG TAB PO ONE (10:00)
[2017-11-12] MEDS ORDERED: TOPIRAMATE 25 MG TAB PO ONE (10:00)
[2017-11-12] MEDS ORDERED: lamoTRIgine 100 MG TAB PO ONE (10:00)
--- NOTE | 2017-11-12 15:17 | PD ---
Physical Exam Date Seen by Provider: Nov 12, 2017 Time Seen by Provider: 07:00 Narrative Patient signed out to me at 7 AM, apparently had a psychotic episode overnight, Jian acted, an awaiting psychiatric evaluation. Patient was not certain in the ER an in the afternoon as doing well, sitting up in eating, awake oriented 3. She was not evaluated by psychiatry at 3 PM end they have released her Villar act, in state that she can go home. She has known history of psychosis intermittently especially post ictal. At this point, she does awaken oriented in plan would be to release her. Follow up with neurology on psychiatry as an outpatient. Continue taking your seizure medications as previously indicated. Return for new issues as needed. Plan has been discussed with the patient she stated understanding. Data Data Last Documented VS Vital Signs Date Time Temp Pulse Resp B/P (MAP) Pulse Ox O2 Delivery O2 Flow Rate FiO2 11/12/17 13:38 113 16 105/75 (85) 100 Room Air 11/12/17 07:38 98.3 Orders Orders Psych Screen (11/11/17 22:56) Complete Blood Count With Diff (11/11/17 23:36) Comprehensive Metabolic Panel (11/11/17 23:36) Thyroid Stimulating Hormone (11/11/17 23:36) Urinalysis - C+S If Indicated (11/11/17 23:36) Blood Glucose (11/11/17 23:36) Ecg Monitoring (11/11/17 23:36) Iv Access Insert/Monitor (11/11/17 23:36) Oximetry (11/11/17 23:36) Sodium Chloride 0.9% Flush (Ns Flush) (11/11/17 23:45) Drug Screen, Random Urine (11/11/17 23:36) Alcohol (Ethanol) (11/11/17 23:36) Tylenol (Acetaminophen) (11/11/17 23:36) Salicylates (Aspirin) (11/11/17 23:36) Urine Culture (11/12/17 01:50) Lorazepam Inj (Ativan Inj) (11/12/17 03:15) Diphenhydramine Inj (Benadryl Inj) (11/12/17 03:15) Haloperidol Inj (Haldol Inj) (11/12/17 03:15) Sodium Chlor 0.9% 1000 Ml Inj (Ns 1000 M (11/12/17 06:30) Restraints Violent (11/12/17 06:21) Diet Regular Basic (11/12/17 Breakfast) Lamotrigine (Lamictal) (11/12/17 10:00) Levetiracetam (Keppra) (11/12/17 10:00) Topiramate (Topamax) (11/12/17 10:00) Ed Discharge Order (11/12/17 15:15) Labs Laboratory Tests Test 11/12/17 01:10 11/12/17 01:50 White Blood Count 10.1 TH/MM3 Red Blood Count 4.27 MIL/MM3 Hemoglobin 11.8 GM/DL Hematocrit 35.0 % Mean Corpuscular Volume 81.9 FL Mean Corpuscular Hemoglobin 27.6 PG Mean Corpuscular Hemoglobin Concent 33.8 % Red Cell Distribution Width 16.1 % Platelet Count 240 TH/MM3 Mean Platelet Volume 8.3 FL Neutrophils (%) (Auto) 73.1 % Lymphocytes (%) (Auto) 19.6 % Monocytes (%) (Auto) 6.3 % Eosinophils (%) (Auto) 0.6 % Basophils (%) (Auto) 0.4 % Neutrophils # (Auto) 7.4 TH/MM3 Lymphocytes # (Auto) 2.0 TH/MM3 Monocytes # (Auto) 0.6 TH/MM3 Eosinophils # (Auto) 0.1 TH/MM3 Basophils # (Auto) 0.0 TH/MM3 CBC Comment DIFF FINAL Differential Comment Blood Urea Nitrogen 7 MG/DL Creatinine 0.94 MG/DL Random Glucose 86 MG/DL Total Protein 7.7 GM/DL Albumin 3.9 GM/DL Calcium Level 8.8 MG/DL Alkaline Phosphatase 81 U/L Aspartate Amino Transf (AST/SGOT) 14 U/L Alanine Aminotransferase (ALT/SGPT) 14 U/L Total Bilirubin 0.3 MG/DL Sodium Level 139 MEQ/L Potassium Level 3.3 MEQ/L Chloride Level 107 MEQ/L Carbon Dioxide Level 22.5 MEQ/L Anion Gap 10 MEQ/L Estimat Glomerular Filtration Rate 68 ML/MIN Thyroid Stimulating Hormone 3rd Gen 2.050 uIU/ML Salicylates Level LESS THAN 1.7 MG/DL Acetaminophen Level LESS THAN 2.0 MCG/ML Ethyl Alcohol Level LESS THAN 3 MG/DL Urine Color YELLOW Urine Turbidity CLEAR Urine pH 5.5 Urine Specific [place] 1.018 Urine Protein TRACE mg/dL Urine Glucose (UA) NEG mg/dL Urine Ketones 80 mg/dL Urine Occult Blood LARGE Urine Nitrite NEG Urine Bilirubin NEG Urine Urobilinogen LESS THAN 2.0 MG/DL Urine Leukocyte Esterase TRACE Urine RBC /hpf Urine WBC 15 /hpf Urine Squamous Epithelial Cells 8 /hpf Urine Mucus MOD /lpf Microscopic Urinalysis Comment CATH-CULTURE IND Urine Opiates Screen NEG Urine Barbiturates Screen NEG Urine Amphetamines Screen NEG Urine Benzodiazepines Screen NEG Urine Cocaine Screen NEG Urine Cannabinoids Screen NEG MDM Medical Record Reviewed: Yes Supervised Visit with TEODORA: No Diagnosis Primary Impression: Breakthrough seizure Additional Impression: Psychiatric disorder Disposition: 01 DISCHARGE HOME Condition: Stable Deonte Meyer MD Nov 12, 2017 15:17
--- NOTE | 2017-11-12 18:37 | PD.PSY.CON ---
Provisional Diagnosis Admission Date [place] I. Unspecified psychosis, R/0 Post Ictal psychosis [place] II. Deferred [place] III. Epilepsia History of Present Illness Service Psychiatry Consult Requested By ER Reason for Consult Psychosis Primary Care Physician Stef Hicks MD HPI The patient is a 32-year-old woman, domiciled with her boyfriend and her kid, unemployed, supported by [facility], she has a psychiatric history of post ictal psychosis, but no previous psychiatric hospitalizations, no previous suicidal attempts, she was seen by Dr. Guerin on November 08, 2017 with the same presentation that today, she has an extensive history of epilepsy, patient presented to triage until hours earlier wound with acute psychotic behavior, accompanied by police concern for her welfare. After escorted to triage, patient exhibited frankly psychotic behavior and combative in triage, put under a a contract designation by police. Patient was then transferred to [facility] unit, where she was witnessed to be potentially postictal. Patient has a known seizure disorder and has frequent breakthrough seizures. Patient states that she is compliant with her medications the medications of been changed somewhat she's had the addition of medications recently for which she says she's had much better treatment of her seizures and less breakthrough she is seizures as well. Further questioning of the patient regarding auditory hallucinations, patient denies, but is responding more towards internal stimuli when questioned about them. Dr. Guerin Assessment on Patient is a 32-year-old woman, domiciled with boyfriend and children, with no formal past psychiatric history, no significant substance use history, with a past medical history significant for seizure disorder, chronic migraines, which patient admitted in the ED for recurrent seizures which patient was noted to have hallucinations and psychiatry consult was requested for evaluation. Patient's hallucinations are likely to be secondary to her primary psychiatric illness or more likely due to patient's current seizure episodes and/or postictal states. Resolution of hallucinations like to occur when seizure activity has abated but in the interim , as these hallucinations are distressing and interfering with daily function may start Abilify 5mg PO daily for hallucinations. Patient has not had persistent hallucinations as per history and has not had this occur in the absence of any seizure-like activity therefore unlikely part of primary psychiatric illness. Continue medical management as per neurology and medical team. However, on my psychiatric evaluation today, patient is calm, cooperative, she reports that she feels much better. Patient does not know the reason she is in the hospital. She denies any recent agitation or aggressive behavior. She says that she doesn't remember the circumstances that brought her to the ER. The patient reports good mood, she denies depressive symptoms, she denies anxiety, she denies anhedonia, hopelessness, helplessness, she denies suicidal or homicidal ideation, she denies visual and auditory hallucinations. Patient reports that she has been struggling with her epilepsy and recurrent seizures. The patient is fully oriented 3, no confusion, no attention deficit, no paranoia, no delusions, no agitation or aggressive behavior reported or observed Review of Systems Constitutional: DENIES: Diaphoretic episodes, Fatigue, Fever, Weight gain, Weight loss, Chills, Dizziness, Change in appetite, Night Sweats Endocrine: DENIES: Abnorml menstrual pattern, Heat/cold intolerance, Polydipsia , Polyuria, Polyphagia Eyes: DENIES: Blurred vision, Diplopia, Eye inflammation, Eye pain, Vision loss , Photosensitivity, Double Vision Ears, nose, mouth, throat: DENIES: Tinnitus, Hearing loss, Vertigo, Nasal discharge, Oral lesions, Throat pain, Hoarseness, Ear Pain, Running Nose, Epistaxis, Sinus Pain, Toothache, Odynophagia Respiratory: DENIES: Apneas, Cough, Snoring, Wheezing, Hemoptysis, Sputum production, Shortness of breath Cardiovascular: DENIES: Chest pain, Palpitations, Syncope, Dyspnea on Exertion , PND, Lower Extremity Edema, Orthopnea, Claudication Gastrointestinal: DENIES: Abdominal pain, Black stools, Bloody stools, Constipation, Diarrhea, Nausea, Vomiting, Difficulty Swallowing, Anorexia Genitourinary: DENIES: Abnormal vaginal bleeding, Dysmenorrhea, Dyspareunia, Sexual dysfunction, Urinary frequency, Urinary incontinence, Urgency, Hematuria , Dysuria, Nocturia, Vaginal discharge Musculoskeletal: DENIES: Joint pain, Muscle aches, Stiffness, Joint Swelling, Back pain, Neck pain Integumentary: DENIES: Abnormal pigmentation, Pruritus, Rash, Nail changes, Breast masses, Breast skin changes, Nipple discharge Hematologic/lymphatic: DENIES: Bruising, Lymphadenopathy Immunologic/allergic: DENIES: Eczema, Urticaria Neurologic: DENIES: Abnormal gait, Headache, Localized weakness, Paresthesias, Seizures, Speech Problems, Tremor, Poor Balance Psychiatric: DENIES: Anxiety, Confusion, Mood changes, Depression, Hallucinations, Agitation, Suicidal Ideation, Homicidal Ideation, Delusions Past Family Social History Coded Allergies: ceftriaxone (Verified Allergy, Mild, ITCHING, REDDNESS, 11/11/17) MRI PRECAUTION (Verified Adverse Reaction, Unknown, VAGUS NERVE STIMULATOR , 11/11/17) NERVE STIMULATOR IN CHEST. PT HAS NO PRODUCT INFO. EXAM CX'D.NURSE EARL FOX/FAROOQ Reported Medications Clobazam (Onfi) 10 Mg Tab, 10 MG PO BID, TAB 11/13/17 Folic Acid (Folic Acid) 800 Mcg Tab, 1000 MCG PO DAILY for Nutritional Supplement, TAB 0 Refills 05/02/17 Lamotrigine (Lamotrigine) 200 Mg Tab, 200 MG PO BID for Control Seizures, #60 TAB 0 Refills 05/02/17 Discontinued Reported Medications Enoxaparin Inj (Lovenox Inj) 40 Mg/0.4 Ml Syr, 40 MG SQ DAILY for Blood Clot Prevention, SYRINGE 0 Refills 11/11/17 Pantoprazole (Protonix) 40 Mg Tab, 40 MG PO DAILY for Reflux, #30 TAB 0 Refills 11/11/17 Aripiprazole (Abilify) 10 Mg Tab, 5 MG PO DAILY, #30 TAB 0 Refills 11/11/17 Sennosides (Senna-Tabs) 8.6 Mg Tab, 8.6 MG PO BID for Constipation, #30 TAB 0 Refills 11/11/17 Levetiracetam (Keppra) 750 Mg Tab, 750 MG PO BID for Control Seizures, #60 TAB 0 Refills 11/11/17 Clobazam (Onfi) 10 Mg Tab, 10 MG PO DAILY, TAB 11/08/17 Topiramate (Topamax) 25 Mg Tab, 25 MG PO BID for Control Seizures, #60 TAB 0 Refills 07/18/17 Lorazepam (Lorazepam) 0.5 Mg Tab, 0.5 MG PO BID Y for ANXIETY, TAB 0 Refills 05/02/17 Tizanidine (Tizanidine) 2 Mg Cap, 2 MG PO TID for Muscle Spasm, CAP 0 Refills 05/02/17 Magnesium Oxide (Magnesium Oxide) 400 Mg Tab, 400 MG PO DAILY for Nutritional Supplement, TAB 0 Refills 05/02/17 Family Psych History Patient denies family psychiatric history Social History Patient was born and raised in [place], she lives in [facility] with her boyfriend, unemployed, supported by [facility], her highest level of education is high school Patient's Strengths (min. 2) Verbal communication Physical Exam No tremors, no EPS, no seizures, no psychomotor agitation or retardation. Vital Signs Vital Signs Date Time Temp Pulse Resp B/P (MAP) Pulse Ox O2 Delivery O2 Flow Rate FiO2 11/12/17 16:17 11/12/17 13:38 113 16 100 Room Air 11/12/17 07:38 98.3 I/O 11/12/17 11/12/17 11/13/17 08:00 16:00 00:00 Intake Total 1500 ml Balance 1500 ml Lab Results Test 11/12/17 01:10 11/12/17 01:50 White Blood Count 10.1 TH/MM3 Red Blood Count 4.27 MIL/MM3 Hemoglobin 11.8 GM/DL Hematocrit 35.0 % Mean Corpuscular Volume 81.9 FL Mean Corpuscular Hemoglobin 27.6 PG Mean Corpuscular Hemoglobin Concent 33.8 % Red Cell Distribution Width 16.1 % Platelet Count 240 TH/MM3 Mean Platelet Volume 8.3 FL Neutrophils (%) (Auto) 73.1 % Lymphocytes (%) (Auto) 19.6 % Monocytes (%) (Auto) 6.3 % Eosinophils (%) (Auto) 0.6 % Basophils (%) (Auto) 0.4 % Neutrophils # (Auto) 7.4 TH/MM3 Lymphocytes # (Auto) 2.0 TH/MM3 Monocytes # (Auto) 0.6 TH/MM3 Eosinophils # (Auto) 0.1 TH/MM3 Basophils # (Auto) 0.0 TH/MM3 CBC Comment DIFF FINAL Differential Comment Blood Urea Nitrogen 7 MG/DL Creatinine 0.94 MG/DL Random Glucose 86 MG/DL Total Protein 7.7 GM/DL Albumin 3.9 GM/DL Calcium Level 8.8 MG/DL Alkaline Phosphatase 81 U/L Aspartate Amino Transf (AST/SGOT) 14 U/L Alanine Aminotransferase (ALT/SGPT) 14 U/L Total Bilirubin 0.3 MG/DL Sodium Level 139 MEQ/L Potassium Level 3.3 MEQ/L Chloride Level 107 MEQ/L Carbon Dioxide Level 22.5 MEQ/L Anion Gap 10 MEQ/L Estimat Glomerular Filtration Rate 68 ML/MIN Thyroid Stimulating Hormone 3rd Gen 2.050 uIU/ML Salicylates Level LESS THAN 1.7 MG/DL Acetaminophen Level LESS THAN 2.0 MCG/ML Ethyl Alcohol Level LESS THAN 3 MG/DL Urine Color YELLOW Urine Turbidity CLEAR Urine pH 5.5 Urine Specific [place] 1.018 Urine Protein TRACE mg/dL Urine Glucose (UA) NEG mg/dL Urine Ketones 80 mg/dL Urine Occult Blood LARGE Urine Nitrite NEG Urine Bilirubin NEG Urine Urobilinogen LESS THAN 2.0 MG/DL Urine Leukocyte Esterase TRACE Urine RBC /hpf Urine WBC 15 /hpf Urine Squamous Epithelial Cells 8 /hpf Urine Mucus MOD /lpf Microscopic Urinalysis Comment CATH-CULTURE IND Urine Opiates Screen NEG Urine Barbiturates Screen NEG Urine Amphetamines Screen NEG Urine Benzodiazepines Screen NEG Urine Cocaine Screen NEG Urine Cannabinoids Screen NEG Date/Time Source Procedure Growth Status 11/12/17 01:50 Urine Catheterized Urine Urine Culture Pending Received Mental Status Examination Appearance: Appropriate Consciousness: Alert Orientation: x4 Motor Activity: Normal gait Speech: Unremarkable Language: Adequate Fund of Knowledge: Adequate Attention and Concentration: Adequate Memory: Unremarkable Mood: Appropriate Affect: Appropriate Thought Process & Associations: Intact Thought Content: Appropriate Hallucination Type: None Delusion Type: None Suicidal Ideation: No Suicidal Plan: No Suicidal Intention: No Homicidal Ideation: No Homicidal Plan: No Homicidal Intention: No Insight: Adequate Judgment: Adequate Assessment & Plan Problem List: (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 The patient does not present any depression, anxiety, nathaniel or psychosis at this moment. Patient reportedly presented to the ER very confused, agitated, disorganized and with active perceptual disturbances that, as already happened before and was well documented by Dr. Guerin, seems to be the result of epileptogenic activity and not secondary to a primary major psychiatric condition decompensation. Will lift galvan act Assessment & Plan Estimated LOS: Preet Velez MD Nov 12, 2017 18:37
[2017-11-13] MEDS ORDERED: ONFI10TA PO (06:51)
== END 2017-11-12 17:04 | disposition home or self-care (01) ==
LOC: NEPJ 21:54 → NEPC 11-12 17:04
DX: G40.909 Epilepsy, unspecified, not intractable, without status epilepticus (principal); F29 Unspecified psychosis not due to a substance or known physiological condition; R94.31 Abnormal electrocardiogram [ECG] [EKG]; Z88.8 Allergy status to other drugs, medicaments and biological substances; Z79.899 Other long term (current) drug therapy
CPT/HCPCS: 80053; 80307; 81001; 84443; 85025; 87086; 96361; 96372; 96374; 96375; J1200; J1630; J2060; J7030

== ENCOUNTER 2017-11-13 06:39 | Inpatient (IN) | payer OTHER ==
[~2017-11-13] VITALS: Ht 175.3 cm; Wt 79.1 kg
[~2017-11-13 06:39] MED LIST changes: +ABIL10TA8 PO; +ENOX40P SQ; +KEPP750T PO; +PROT40TA PO; +SENN8.6T36 PO
[2017-11-13 06:41] VITALS: BP 138/74; PULSE 112; RESP 20; TEMP 99; O2SAT 99
[2017-11-13] MEDS ORDERED: ONFI10TA PO (06:51)
--- NOTE | 2017-11-13 08:02 | PD ---
HPI Chief Complaint: Medical Clearance Time Seen by Provider: 07:46 Travel History International Travel<30 days: No Contact w/Intl Traveler<30days: No Traveled to known affect area: No History of Present Illness HPI 32-year-old female patient with history of seizures, psychiatric issues, seen in the past few visits to the ER over the last few days for seizures an psychosis. She was not recently released from the hospital yesterday after psychiatry saw her an states that she may be having seizures with psychotic episodes post ictal. She has returning today because she states that she has having visual hallucinations then she thinks it may be related to some of the medications that she has on. However, she is not taking any new medications given to her from here yet. She has 3 medications with her in she states that these are all her old medications. She denies any further episodes of seizures. Modifying Factors: None Associated Signs & Symptoms: Hallucinations Risk Factors: History of psychosis, seizures PFSH Past Medical History Arthritis: No Asthma: No Autoimmune Disease: No Blood Disorders: No Anxiety: No Depression: No Heart Rhythm Problems: No Cancer: No Cardiovascular Problems: No Chemotherapy: No Chest Pain: No Congestive Heart Failure: No COPD: No Cerebrovascular Accident: No Diabetes: No Diminished Hearing: No Endocrine: No Gastrointestinal Disorders: No GERD: No Genitourinary: No Headaches: No Hiatal Hernia: No Heparin Induced Thrombocytopen: No Hypertension: No Immune Disorder: No Implanted Vascular Access Dvce: Yes Kidney Stones: No Musculoskeletal: No Neurologic: Yes Psychiatric: No Reproductive: No Respiratory: No Immunizations Current: Yes Migraines: Yes Radiation Therapy: No Renal Failure: No Seizures: Yes Sickle Cell Disease: No Sleep Apnea: No Thyroid Disease: No Ulcer: No Tetanus Vaccination: < 5 Years Influenza Vaccination: No ?: Not LMP: 11/13/17 Menopausal: No : 2 Para: 2 Ovarian Cysts: Yes Past Surgical History Abdominal Surgery: No AICD: No Arteriovenous Shunt: No Body Medical Devices: VAGAL NERVE STIMULATOR Cardiac Surgery: No Ear Surgery: No Endocrine Surgery: No Eye Surgery: No Genitourinary Surgery: No Gynecologic Surgery: No Insulin Pump: No Joint Replacement: No Neurologic Surgery: Yes (VAGAL NERVE STIMULATOR) Oral Surgery: No Pacemaker: No Thoracic Surgery: No Other Surgery: Yes (VNS IMPLANT ) Social History Alcohol Use: No Tobacco Use: No Substance Use: No Allergies-Medications (Allergen,Severity, Reaction): Coded Allergies: ceftriaxone (Verified Allergy, Mild, ITCHING, REDDNESS, 11/11/17) MRI PRECAUTION (Verified Adverse Reaction, Unknown, VAGUS NERVE STIMULATOR , 11/11/17) NERVE STIMULATOR IN CHEST. PT HAS NO PRODUCT INFO. EXAM CX'D.NURSE EARL INFORMED/JLA Reported Meds & Prescriptions Reported Meds & Active Scripts Active Reported Onfi (Clobazam) 10 Mg Tab 10 Mg PO BID Folic Acid 800 Mcg Tab 1,000 Mcg PO DAILY Lamotrigine 200 Mg Tab 200 Mg PO BID Review of Systems Except as stated in HPI: all other systems reviewed are Neg Physical Exam Narrative GENERAL: Well-developed young white female patient currently in mild distress. Awake an oriented 3. SKIN: Focused skin assessment warm/dry. HEAD: Atraumatic. Normocephalic. EYES: Pupils equal and round. No scleral icterus. No injection or drainage. ENT: No nasal bleeding or discharge. Mucous membranes pink and moist. NECK: Trachea midline. No JVD. Supple. CARDIOVASCULAR: Regular rate and rhythm. No murmur appreciated. RESPIRATORY: No accessory muscle use. Clear to auscultation. Breath sounds equal bilaterally. GASTROINTESTINAL: Abdomen soft, non-tender, nondistended. Hepatic and splenic margins not palpable. MUSCULOSKELETAL: No obvious deformities. No clubbing. No cyanosis. No edema. NEUROLOGICAL: Awake and alert. No obvious cranial nerve deficits. Motor grossly within normal limits. Normal speech. PSYCHIATRIC: No delusional thought processes. Visual hallucinations. Flat affect. Insight and judgment is intact. Data Data Last Documented VS Vital Signs Date Time Temp Pulse Resp B/P (MAP) Pulse Ox O2 Delivery O2 Flow Rate FiO2 11/13/17 06:41 99.0 112 20 138/74 (95) 99 Orders Orders Complete Blood Count With Diff (11/13/17 07:21) Comprehensive Metabolic Panel (11/13/17 07:21) Thyroid Stimulating Hormone (11/13/17 07:21) Ed Urine Pregnancytest Poc (11/13/17 07:21) Psych Screen (11/13/17 07:21) Drug Screen, Random Urine (11/13/17 07:21) Labs Laboratory Tests Test 11/13/17 07:52 11/13/17 08:26 White Blood Count 8.1 TH/MM3 Red Blood Count 4.07 MIL/MM3 Hemoglobin 11.2 GM/DL Hematocrit 33.1 % Mean Corpuscular Volume 81.5 FL Mean Corpuscular Hemoglobin 27.4 PG Mean Corpuscular Hemoglobin Concent 33.6 % Red Cell Distribution Width 15.9 % Platelet Count 255 TH/MM3 Mean Platelet Volume 8.5 FL Neutrophils (%) (Auto) 70.8 % Lymphocytes (%) (Auto) 20.3 % Monocytes (%) (Auto) 7.4 % Eosinophils (%) (Auto) 0.9 % Basophils (%) (Auto) 0.6 % Neutrophils # (Auto) 5.7 TH/MM3 Lymphocytes # (Auto) 1.6 TH/MM3 Monocytes # (Auto) 0.6 TH/MM3 Eosinophils # (Auto) 0.1 TH/MM3 Basophils # (Auto) 0.0 TH/MM3 CBC Comment DIFF FINAL Differential Comment Blood Urea Nitrogen 8 MG/DL Creatinine 0.90 MG/DL Random Glucose 96 MG/DL Total Protein 7.4 GM/DL Albumin 3.9 GM/DL Calcium Level 8.7 MG/DL Alkaline Phosphatase 78 U/L Aspartate Amino Transf (AST/SGOT) 18 U/L Alanine Aminotransferase (ALT/SGPT) 14 U/L Total Bilirubin 0.3 MG/DL Sodium Level 139 MEQ/L Potassium Level 3.6 MEQ/L Chloride Level 107 MEQ/L Carbon Dioxide Level 22.4 MEQ/L Anion Gap 10 MEQ/L Estimat Glomerular Filtration Rate 72 ML/MIN Thyroid Stimulating Hormone 3rd Gen 1.350 uIU/ML Urine Opiates Screen NEG Urine Barbiturates Screen NEG Urine Amphetamines Screen NEG Urine Benzodiazepines Screen POS Urine Cocaine Screen NEG Urine Cannabinoids Screen NEG [facility] Medical Decision Making Medical Screen Exam Complete: Yes Emergency Medical Condition: Yes Medical Record Reviewed: Yes Interpretation(s) Laboratory Tests Test 11/13/17 07:52 11/13/17 08:26 Hemoglobin 11.2 GM/DL (11.6-15.3) Hematocrit 33.1 % (35.0-46.0) Neutrophils (%) (Auto) 70.8 % (16.0-70.0) Estimat Glomerular Filtration Rate 72 ML/MIN (>89) Urine Benzodiazepines Screen POS (NEG) Differential Diagnosis Acute on chronic psychosis versus further postictal psychosis versus medication side effects Narrative Course Patient has actively hallucinating, wandering from room to room, appears somewhat anxious. I am concerned about her underlying psychosis, this appears to be change from baseline according to the patient. She has had no further episodes of seizure in at this point she has awake, alert, oriented aunt has insight into this issue. She does not have significant metabolic issues. Vital signs are stable in the ER. An my plan would be to medically clear her for psychiatric evaluation. Diagnosis Primary Impression: Hallucinations, visual Disposition: 65 DISC TO [facility] Condition: Stable Deonte Meyer MD Nov 13, 2017 08:02
[2017-11-13 08:06] LABS: AUTOMATED NEUTROPHIL # 5.7 TH/MM3 (1.8-7.7); BASOPHIL % 0.6 % (0.0-2.0); EOSINOPHIL # 0.1 TH/MM3 (0-0.4); EOSINOPHIL % 0.9 % (0.0-4.0); HEMATOCRIT 33.1 % (35.0-46.0); HEMOGLOBIN 11.2 GM/DL (11.6-15.3); LYMPH % 20.3 % (9.0-44.0); LYMPHOCYTE # 1.6 TH/MM3 (1.0-4.8); MEAN CELL VOLUME 81.5 FL (80.0-100.0); MEAN CORPUSCULAR HEMOGLOBIN 27.4 PG (27.0-34.0); MEAN CORPUSCULAR HGB CONC 33.6 % (32.0-36.0); MEAN PLATELET VOLUME 8.5 FL (7.0-11.0); MONO % 7.4 % (0.0-8.0); MONOCYTE # 0.6 TH/MM3 (0-0.9); NEUT % 70.8 % (16.0-70.0); PLATELET COUNT 255 TH/MM3 (150-450); RED BLOOD COUNT 4.07 MIL/MM3 (4.00-5.30); RED CELL DISTRIBUTION WIDTH 15.9 % (11.6-17.2); WHITE BLOOD COUNT 8.1 TH/MM3 (4.0-11.0)
[2017-11-13 08:39] LABS: ALBUMIN 3.9 GM/DL (3.4-5.0); ALT (GPT) 14 U/L (10-53); AST (GOT) 18 U/L (15-37); BICARBONATE 22.4 MEQ/L (21.0-32.0); BLOOD UREA NITROGEN 8 MG/DL (7-18); CALCIUM 8.7 MG/DL (8.5-10.1); CHLORIDE 107 MEQ/L (98-107); GLOMERULAR FILTRATION RATE 72 ML/MIN (>89); GLUCOSE,RANDOM 96 MG/DL (74-106); SODIUM (NA) 139 MEQ/L (136-145)
[2017-11-13 08:49] LABS: ALKALINE PHOSPHATASE 78 U/L (45-117); TOTAL BILIRUBIN ADULT 0.3 MG/DL (0.2-1.0); TOTAL PROTEIN 7.4 GM/DL (6.4-8.2)
[2017-11-13] MEDS ORDERED: ACETAMINOPHEN 325 MG TAB PO PRN (09:30)
[2017-11-13] MEDS ORDERED: MAGNESIUM HYDROXIDE SUSP 30 ML CUP PO PRN (09:30)
[2017-11-13] MEDS ORDERED: ALUMINUM/MAGNESIUM/SIMETH 30 ML CUP PO PRN (09:30)
[2017-11-13] MEDS ORDERED: levETIRAcetam 250 MG TAB PO SCH (10:15)
--- NOTE | 2017-11-13 10:26 | PD.CONS ---
HPI Service [facility] Hospitalists Consult Requested By Dr. Schneider Reason for Consult Seizure and psychosis Primary Care Physician Unknown Diagnoses: History of Present Illness This is a 32-year-old with history of seizure disorder and questionable psychiatric disorder who presented with psychosis. Patient was recently admitted to the hospital a couple days ago secondary to seizures but left AMA. Her brought patient back in because he stated that she needs to be treated was not behaving appropriately. He stated that since she left AMA she has not had any seizures. During the interview patient stated that they forgot to give her her discharge paper. She stated that she was told she can leave. She has no other complaints. Her son and are at the bedside during the interview. Majority of the history taken from the . stated that when she was hospitalized they gave her Keppra and that medication worked great. All other review system reviewed and negative. Past Family Social History Allergies: Coded Allergies: ceftriaxone (Verified Allergy, Mild, ITCHING, REDDNESS, 11/11/17) MRI PRECAUTION (Verified Adverse Reaction, Unknown, VAGUS NERVE STIMULATOR , 11/11/17) NERVE STIMULATOR IN CHEST. PT HAS NO PRODUCT INFO. EXAM CX'D.NURSE EARL INFORMED/JLA Past Medical History Seizure disorder Past Surgical History vagal nerves stimulator implant Reported Medications Patient left AMA some medication list was not updated Patient was supposed to be discharged on Keppra 750 mg by mouth twice a day, Lamictal 200 mg by mouth twice a day and Topamax 25 mg by mouth twice a day Active Ordered Medications Current Medications Lorazepam (Ativan) 1 mg Q6H PRN PO MODERATE TO SEVERE ANXIETY; Start 11/13/17 at 09:30 Lorazepam (Ativan Inj) 1 mg Q6H PRN IM MODERATE TO SEVERE ANXIETY; Start at 09:30 Acetaminophen (Tylenol) 650 mg Q4H PRN PO Pain 1-5 or Temp >101F; Start at 09:30 Magnesium Hydroxide (Milk Of Magnesia Liq) 30 ml DAILY PRN PO CONSTIPATION; Start 11/13/17 at 09:30 Al Hydrox/Mg Hydrox/Simethicone (Mag-Al Plus Susp Liq) 30 ml Q6H PRN PO DYSPEPSIA; Start 11/13/17 at 09:30 Folic Acid (Folate) 1 mg DAILY PO ; Start 11/14/17 at 09:00 Lamotrigine (LaMICtal) 200 mg BID PO ; Start 11/13/17 at 21:00 Non-Formulary Medication 10 mg BID PO ; Start 11/13/17 at 21:00; Stop 11/13/17 at 21:00; Status DC Levetriacetam (Keppra) 250 mg Q12HR PO ; Start 11/13/17 at 10:15; Stop 11/13/17 at 10:23; Status DC Topiramate (Topamax) 25 mg Q12HR PO ; Start 11/13/17 at 10:15; Status UNV Levetriacetam (Keppra) 750 mg Q12HR PO ; Start 11/13/17 at 10:30; Status UNV Family History Reviewed past family history unable to obtain due to patient's mental status. Social History Patient lives at home with HER-2 sons and . Denies any alcohol tobacco illicit drug use. Physical Exam Vital Signs Vital Signs Date Time Temp Pulse Resp B/P (MAP) Pulse Ox O2 Delivery O2 Flow Rate FiO2 11/13/17 06:41 99.0 112 20 138/74 (95) 99 Physical Exam GENERAL: This is a well-nourished, well-developed patient, in no apparent distress. SKIN: No rashes, ecchymoses or lesions. Cool and dry. HEAD: Atraumatic. Normocephalic. No temporal or scalp tenderness. EYES: Pupils equal round and reactive. Extraocular motions intact. No scleral icterus. No injection or drainage. ENT: Nose without bleeding, purulent drainage or septal hematoma. Throat without erythema, tonsillar hypertrophy or exudate. Uvula midline. Airway patent. NECK: Trachea midline. No JVD or lymphadenopathy. Supple, nontender, no meningeal signs. CARDIOVASCULAR: Regular rate and rhythm without murmurs, gallops, or rubs. RESPIRATORY: Clear to auscultation. Breath sounds equal bilaterally. No wheezes , rales, or rhonchi. GASTROINTESTINAL: Abdomen soft, non-tender, nondistended. No hepato-splenomegaly , or palpable masses. No guarding. MUSCULOSKELETAL: Extremities without clubbing, cyanosis, or edema. No joint tenderness, effusion, or edema noted. No calf tenderness. Negative Homans sign bilaterally. NEUROLOGICAL: Awake and alert. Cranial nerves II through XII intact. Motor and sensory grossly within normal limits. Five out of 5 muscle strength in all muscle groups. Normal speech. Laboratory Laboratory Tests Test 11/13/17 07:52 11/13/17 08:26 White Blood Count 8.1 Red Blood Count 4.07 Hemoglobin 11.2 Hematocrit 33.1 Mean Corpuscular Volume 81.5 Mean Corpuscular Hemoglobin 27.4 Mean Corpuscular Hemoglobin Concent 33.6 Red Cell Distribution Width 15.9 Platelet Count 255 Mean Platelet Volume 8.5 Neutrophils (%) (Auto) 70.8 Lymphocytes (%) (Auto) 20.3 Monocytes (%) (Auto) 7.4 Eosinophils (%) (Auto) 0.9 Basophils (%) (Auto) 0.6 Neutrophils # (Auto) 5.7 Lymphocytes # (Auto) 1.6 Monocytes # (Auto) 0.6 Eosinophils # (Auto) 0.1 Basophils # (Auto) 0.0 CBC Comment DIFF FINAL Differential Comment Blood Urea Nitrogen 8 Creatinine 0.90 Random Glucose 96 Total Protein 7.4 Albumin 3.9 Calcium Level 8.7 Alkaline Phosphatase 78 Aspartate Amino Transf (AST/SGOT) 18 Alanine Aminotransferase (ALT/SGPT) 14 Total Bilirubin 0.3 Sodium Level 139 Potassium Level 3.6 Chloride Level 107 Carbon Dioxide Level 22.4 Anion Gap 10 Estimat Glomerular Filtration Rate 72 Thyroid Stimulating Hormone 3rd Gen 1.350 Urine Opiates Screen NEG Urine Barbiturates Screen NEG Urine Amphetamines Screen NEG Urine Benzodiazepines Screen POS Urine Cocaine Screen NEG Urine Cannabinoids Screen NEG Result Diagram: 11/13/17 0752 11/13/17 0752 Assessment and Plan Assessment and Plan This is a 33-year-old female with history of seizure disorders who was recently admitted secondary to uncontrolled seizures left [facility] and readmitted due to psychosis Psychosis -During previous admission patient was started on Abilify by psychiatrists. Management per psychiatrist since patient will be admitted to inpatient psychiatry. -Labs and imaging reviewed nothing metabolic but may be secondary to seizures. Seizure disorder -Patient medication list was not updated. -Continue with Lamictal DC Onfi. - We will start Keppra 750 mg by mouth twice a day and Topamax 25 mg twice a day as directed by neurologist Dr. Bueno which was recommended on previous admission 1 day ago. -Recent study showed abnormal EEG with seizure activity. CT scan of the brain did not show anything acute. Unable to do MRI of the brain due to vagus nerve stimulator. DVT prophylaxis -Low risk. Encourage ambulation. Code Status full Discussed Condition With Patient and her Jenna Loyola MD Nov 13, 2017 10:26
[2017-11-13] MEDS: LORazepam 2 MG/ML VIAL IM PRN ×2 (11:28→11:39)
[2017-11-13] MEDS: levETIRAcetam 500 MG TAB PO SCH ×2 (12:00→21:15)
--- NOTE | 2017-11-13 12:36 | HHI.HP ---
Provisional Diagnosis Admission Date Nov 13, 2017 at 09:18 [place] I. Brief psychotic disorder Certification of Person's Competence To Provide Express and Informed Consent I have personally examined Jim Santiago , a person being served at [facility] on, Nov 13, 2017 12:20. Express and informed consent means consent voluntarily given in writing, by a competent person, after sufficient explanation and disclosure of the subject matter involved to enable the person to make a knowing and willful decision without any element of force, fraud, deceit, duress, or other form of constraint or coercion. This person is 18 years of age or older, is not now known to be incompetent to consent to treatment with a guardian advocate, and does not have a health care surrogate or proxy currently making medical treatment decisions. I have found this person to be one of the following: [] Competent to provide express and informed consent, as defined above, for voluntary admission to this facility and is competent to provide express and informed consent for treatment. He/she has the consistent capacity to make well reasoned, willful, and knowing decisions concerning his or her medical or mental health treatment. The person fully and consistently understands the purpose of the admission for examination/placement and is fully capable of personally exercising all rights assured [place] [X] Incompetent to provide express and informed consent to voluntary admission, and this is incompetent to provide express and informed consent to treatment. The person must be transferred to involuntary status and a petition for a guardian advocate filed with the Circuit Court. [] Refusing to provide express and informed consent to voluntary admission but is competent to provide express and informed consent for treatment. The person must be discharged or transferred to involuntary status. Form shall be completed within 24 hours of a person's arrival at the receiving facility and filed in the clinical record of each person: 1. Admitted on a voluntary basis 2. Permitted to provide express and informed consent to his/her own treatment 3. Allowed to transfer from involuntary to voluntary status 4. Prior to permitting a person to consent to his or her own treatment after having been previously found incompetent to consent to treatment. History of Present Illness Capacity: Lacks Capacity HPI 32-year-old female Villar acted by this physician for current psychotic symptoms , including paranoid delusions, auditory and visual hallucinations, danger to self and danger to others. Patient has been seen in the emergency department several times over the last several days. She has a rené brandi seizure disorder and has experienced some seizures over the last several days as well. However, she presents this morning very obviously psychotic, stating there are people trying to harm her and they are with the government. She is taking food away from [id number] "nylaon" mouth (the son of her boyfriend) claiming it is poisoned. She is obviously responding to internal stimuli at this time. She exhibits significant looseness of associations. Both he and she are indicating she has not had a seizure in the last day or more and no medication changes have been made. The patient's boyfriend cannot care for her and there are children in the home that the patient believes are impostors and therefore the children are at risk of harm. Review of Systems ROS Limitations: Clinical Condition Except as stated in HPI: all other systems reviewed are Neg Past Psych History Psychological trauma history No known psychological trauma but patient is a poor historian at this time. Violence risk - others (6 mos) High Violence risk - self (6 mos) High Substance Abuse History Drugs/Alcohol past 12 months Denied Past Family Social History Coded Allergies: ceftriaxone (Verified Allergy, Mild, ITCHING, REDDNESS, 11/11/17) MRI PRECAUTION (Verified Adverse Reaction, Unknown, VAGUS NERVE STIMULATOR , 11/11/17) NERVE STIMULATOR IN CHEST. PT HAS NO PRODUCT INFO. EXAM CX'D.NURSE EARL INFORMED/JLA Reported Medications Clobazam (Onfi) 10 Mg Tab, 10 MG PO BID, TAB 11/13/17 Folic Acid (Folic Acid) 800 Mcg Tab, 1000 MCG PO DAILY for Nutritional Supplement, TAB 0 Refills 05/02/17 Lamotrigine (Lamotrigine) 200 Mg Tab, 200 MG PO BID for Control Seizures, #60 TAB 0 Refills 05/02/17 Discontinued Reported Medications Enoxaparin Inj (Lovenox Inj) 40 Mg/0.4 Ml Syr, 40 MG SQ DAILY for Blood Clot Prevention, SYRINGE 0 Refills 11/11/17 Pantoprazole (Protonix) 40 Mg Tab, 40 MG PO DAILY for Reflux, #30 TAB 0 Refills 11/11/17 Aripiprazole (Abilify) 10 Mg Tab, 5 MG PO DAILY, #30 TAB 0 Refills 11/11/17 Sennosides (Senna-Tabs) 8.6 Mg Tab, 8.6 MG PO BID for Constipation, #30 TAB 0 Refills 11/11/17 Levetiracetam (Keppra) 750 Mg Tab, 750 MG PO BID for Control Seizures, #60 TAB 0 Refills 11/11/17 Clobazam (Onfi) 10 Mg Tab, 10 MG PO DAILY, TAB 11/08/17 Topiramate (Topamax) 25 Mg Tab, 25 MG PO BID for Control Seizures, #60 TAB 0 Refills 07/18/17 Lorazepam (Lorazepam) 0.5 Mg Tab, 0.5 MG PO BID Y for ANXIETY, TAB 0 Refills 05/02/17 Tizanidine (Tizanidine) 2 Mg Cap, 2 MG PO TID for Muscle Spasm, CAP 0 Refills 05/02/17 Magnesium Oxide (Magnesium Oxide) 400 Mg Tab, 400 MG PO DAILY for Nutritional Supplement, TAB 0 Refills 05/02/17 Current Medications Medications (Trade) Dose Ordered Sig/Emy Route Start Time Stop Time Status Last Admin (Ativan) 1 mg Q6H PRN PO 11/13/17 09:30 (Ativan Inj) 1 mg Q6H PRN IM 11/13/17 09:30 11/13/17 11:39 (Tylenol) 650 mg Q4H PRN PO 11/13/17 09:30 (Milk Of Magnesia Liq) 30 ml DAILY PRN PO 11/13/17 09:30 (Mag-Al Plus Susp Liq) 30 ml Q6H PRN PO 11/13/17 09:30 (Folate) 1 mg DAILY PO 11/14/17 09:00 (LaMICtal) 200 mg BID PO 11/13/17 21:00 (Topamax) 25 mg Q12HR PO 11/13/17 13:00 (Keppra) 750 mg Q12HR PO 11/13/17 12:00 11/13/17 12:00 Family Psych History No known psychiatric family history. Social History Usually lives with her boyfriend of several years. Not currently employed. Has a long-standing seizure disorder and an implanted vagal nerve stimulator device. Denies alcoholism and drug abuse. 2 small children in the home. Patient's Strengths (min. 2) Supportive boyfriend and has access to healthcare. Physical Exam GENERAL: SKIN: Warm and dry. HEAD: Normocephalic. EYES: No scleral icterus. No injection or drainage. NECK: Supple, trachea midline. No JVD or lymphadenopathy. CARDIOVASCULAR: Regular rate and rhythm without murmurs, gallops, or rubs. RESPIRATORY: Breath sounds equal bilaterally. No accessory muscle use. GASTROINTESTINAL: Abdomen soft, non-tender, nondistended. MUSCULOSKELETAL: No cyanosis, or edema. BACK: Nontender without obvious deformity. No CVA tenderness. Vital Signs Vital Signs Date Time Temp Pulse Resp B/P (MAP) Pulse Ox O2 Delivery O2 Flow Rate FiO2 11/13/17 10:25 11/13/17 06:41 99.0 112 20 99 Lab Results Test 11/13/17 07:52 11/13/17 08:26 White Blood Count 8.1 TH/MM3 Red Blood Count 4.07 MIL/MM3 Hemoglobin 11.2 GM/DL Hematocrit 33.1 % Mean Corpuscular Volume 81.5 FL Mean Corpuscular Hemoglobin 27.4 PG Mean Corpuscular Hemoglobin Concent 33.6 % Red Cell Distribution Width 15.9 % Platelet Count 255 TH/MM3 Mean Platelet Volume 8.5 FL Neutrophils (%) (Auto) 70.8 % Lymphocytes (%) (Auto) 20.3 % Monocytes (%) (Auto) 7.4 % Eosinophils (%) (Auto) 0.9 % Basophils (%) (Auto) 0.6 % Neutrophils # (Auto) 5.7 TH/MM3 Lymphocytes # (Auto) 1.6 TH/MM3 Monocytes # (Auto) 0.6 TH/MM3 Eosinophils # (Auto) 0.1 TH/MM3 Basophils # (Auto) 0.0 TH/MM3 CBC Comment DIFF FINAL Differential Comment Blood Urea Nitrogen 8 MG/DL Creatinine 0.90 MG/DL Random Glucose 96 MG/DL Total Protein 7.4 GM/DL Albumin 3.9 GM/DL Calcium Level 8.7 MG/DL Alkaline Phosphatase 78 U/L Aspartate Amino Transf (AST/SGOT) 18 U/L Alanine Aminotransferase (ALT/SGPT) 14 U/L Total Bilirubin 0.3 MG/DL Sodium Level 139 MEQ/L Potassium Level 3.6 MEQ/L Chloride Level 107 MEQ/L Carbon Dioxide Level 22.4 MEQ/L Anion Gap 10 MEQ/L Estimat Glomerular Filtration Rate 72 ML/MIN Thyroid Stimulating Hormone 3rd Gen 1.350 uIU/ML Urine Opiates Screen NEG Urine Barbiturates Screen NEG Urine Amphetamines Screen NEG Urine Benzodiazepines Screen POS Urine Cocaine Screen NEG Urine Cannabinoids Screen NEG Mental Status Examination Appearance: Disheveled Consciousness: Alert Orientation: Person Motor Activity: Normal gait Speech: Hesitant, Other Language: Perseveration Fund of Knowledge: Inadequate Attention and Concentration: Inadequate Memory: Impaired Mood: Anxious Affect: Anxious, Other Thought Process & Associations: Loose associations Thought Content: Bizarre thinking, Hallucinations, Delusional Hallucination Type: Auditory Delusion Type: Bizarre, Paranoid Suicidal Ideation: No Suicidal Plan: No Suicidal Intention: No Homicidal Ideation: No Homicidal Plan: No Homicidal Intention: No Insight: Poor Judgment: Poor Assessment & Plan Problem List: (1) Brief psychotic disorder ICD Codes: F23 - Brief psychotic disorder Assessment & Plan Estimated LOS: days. 32-year-old female placed under a Villar act by this physician due to her obvious psychosis, inability to care for herself, danger to self and danger to children. Patient has been seen in the emergency department several times and the situation is not improving but rather deteriorating. Her boyfriend is unable to care for her 24 hours a day and she is impulsive, walking out of the house this morning, and 24 weather, wearing short underwear and T-shirt. She is delusional regarding the children and took food away from her boyfriend's son. She does not remember these things. However she is being admitted for these reasons. This physician has ordered a CBC and comprehensive metabolic panel to determine if any infectious process or metabolic process might be causing or contributing to her confusion and psychosis. Additionally, this physician has ordered a hospitalist consult to address the patient's history of seizure disorder, possible drug interactions, etc. Also ordered was a thyroid-stimulating hormone level, vitamin B-12 level and vitamin D level as deficiencies in these areas can cause or contribute to psychosis. This physician ordered an EKG to determine the patient's cardiac conduction status prior to starting antipsychotic medications which may be necessary to treat her ongoing delusions and hallucinations. Finally, this physician spoke with the patient's nurse, Rowena, regarding the patient's recent behavior. Case management will also be involved to assist with further information gathering and disposition planning. Jemal Schneider MD Nov 13, 2017 12:36
[2017-11-13] MEDS: TOPIRAMATE 25 MG TAB PO SCH ×2 (13:00→21:15)
[2017-11-13 17:28] VITALS: BP 138/81; PULSE 112; RESP 18; TEMP 97.4; O2SAT 95
[2017-11-13 17:29] VITALS: BP 98/55; PULSE 80; RESP 17; O2SAT 100
[2017-11-13] MEDS ORDERED: CLOBAZAM 10 MG PO SCH (21:00)
[2017-11-13] MEDS: lamoTRIgine 100 MG TAB PO SCH (21:15)
[2017-11-13] MEDS: LORazepam 1 MG TAB PO PRN (23:16)
[2017-11-14 06:00] VITALS: BP 112/52; PULSE 99; RESP 16; TEMP 98.1; O2SAT 98
--- NOTE | 2017-11-14 08:42 | HHI.PYPN ---
Subjective Remarks Patient is a 32 y/o woman, domiciled with boyfriend and two children , unemployed on disability with no past psychiatric history, no substance abuse history with past medical history significant for seizure disorder and migraines who was has had recent ED visits due to recurrent seizures and most recently experiencing hallucinations along with disorganized behavior, paranoia , bizarre delusions, responding to internal stimuli which she was put under BA for noted symptoms and inability to care for self due to the same. Patient was seen for follow up; chart reviewed. Discussion with nursing staff reported that patient was noted to have been naked on her bed reading a bible, endorsed visual hallucinations, noted to be standing at the corner of the room, believing that the children are imposters and that the food her children were eating was poisoned but no noted seizures over night. Patient was found lying on hospital bed asleep but able to wake up for interview. Patient states that she has been feeling "tired", reporting not having slept well last evening and she states she was up reading the Bible at night. Patient is alert and oriented 3. Patient was unable to recall events prior to admission stating that "family wasn't getting along" but was not able to elaborate. Patient continues to endorse having visual hallucinations recently "bunch of stuff" such as people or animals which she last experienced yesterday. Patient also endorsed auditory hallucinations of voices calling her name which she experiences yesterday as well. Patient denies any paranoid delusions at this time, denying any SI or HI. Collateral contact: Remigio Saleem () Review of Systems Except as stated in HPI: all other systems reviewed are Neg Mental Status Examination Appearance: Disheveled Consciousness: Alert Orientation: Person Motor Activity: Normal gait Speech: Hesitant, Other Language: Adequate Fund of Knowledge: Inadequate Attention and Concentration: Inadequate Memory: Impaired Mood: Anxious Affect: Anxious Thought Process & Associations: Loose associations, Linear Thought Content: Bizarre thinking, Hallucinations, Delusional Hallucination Type: Auditory, Visual Delusion Type: Bizarre, Paranoid Suicidal Ideation: No Suicidal Plan: No Suicidal Intention: No Homicidal Ideation: No Homicidal Plan: No Homicidal Intention: No Insight: Poor Judgment: Poor Results Labs Labs reviewed Test 11/13/17 08:26 Urine Opiates Screen NEG Urine Barbiturates Screen NEG Urine Amphetamines Screen NEG Urine Benzodiazepines Screen POS Urine Cocaine Screen NEG Urine Cannabinoids Screen NEG Vitals/IOs Vital Signs Date Time Temp Pulse Resp B/P (MAP) Pulse Ox O2 Delivery O2 Flow Rate FiO2 11/14/17 06:00 98.1 99 16 112/52 (72) 98 Intake and Output 11/14/17 11/14/17 11/15/17 08:00 16:00 00:00 Intake Total 240 ml Balance 240 ml Assessment & Plan Problem List: (1) Brief psychotic disorder ICD Codes: F23 - Brief psychotic disorder Assessment & Plan Patient is a 32 year woman who carries a diagnoses of seizure disorder , with recent ED visits due to the same as well as recently endorsing hallucinations along with paranoia, bizarre delusions and behavior where she was put under Villar act for concern for her ability to care for herself secondary to her symptomatology. Patient continues to experience perceptual disturbances, noted to have disorganized behavior observed by staff along with bizarre delusions and behavior. In regards to treating hallucinations at this time, important to note that all antipsychotic medications can lower seizure threshold vary in degree of this risk, with risperidone at relatively low risk. Will start risperidone 0.5 mg by mouth twice a day with upper titration for psychosis. Neurology consult requested, hospitalist consult appreciated. Continue recommendations as per primary medical team. Continue to monitor mood and behavior. Seizure precautions. Neurochecks every 4 hours. Collateral information pending from . progress worker intervention for her psychosocial assessment individual/group therapy and discharge planning. Discharge planning in progress. Justification for Cont. Inpt. At risk for further decompensation if at lower level of care Discharge Planning To be discharged back to her residence once medically and psychiatrically stable Saravanan Guerin MD Nov 14, 2017 08:42
[2017-11-14] MEDS ORDERED: levETIRAcetam 250 MG TAB PO SCH (09:00)
[2017-11-14 09:05] LABS: AUTOMATED NEUTROPHIL # 3.7 TH/MM3 (1.8-7.7); BASOPHIL # 0.1 TH/MM3 (0-0.2); BASOPHIL % 0.8 % (0.0-2.0); EOSINOPHIL # 0.1 TH/MM3 (0-0.4); HEMATOCRIT 35.2 % (35.0-46.0); HEMOGLOBIN 11.8 GM/DL (11.6-15.3); LYMPH % 33.2 % (9.0-44.0); LYMPHOCYTE # 2.1 TH/MM3 (1.0-4.8); MEAN CELL VOLUME 82.2 FL (80.0-100.0); MEAN CORPUSCULAR HEMOGLOBIN 27.5 PG (27.0-34.0); MEAN CORPUSCULAR HGB CONC 33.4 % (32.0-36.0); MEAN PLATELET VOLUME 8.2 FL (7.0-11.0); MONOCYTE # 0.4 TH/MM3 (0-0.9); PLATELET COUNT 255 TH/MM3 (150-450); RED BLOOD COUNT 4.28 MIL/MM3 (4.00-5.30); WHITE BLOOD COUNT 6.4 TH/MM3 (4.0-11.0)
--- NOTE | 2017-11-14 09:22 | HHI.PR ---
Subjective Remarks The patient was ambulatory. She stated that she was cold. She denied any further seizures. Discussed with nursing at the bedside. Objective Vitals Vital Signs Date Time Temp Pulse Resp B/P (MAP) Pulse Ox O2 Delivery O2 Flow Rate FiO2 11/14/17 06:00 98.1 99 16 112/52 (72) 98 11/13/17 17:29 80 17 98/55 (69) 100 11/13/17 17:28 97.4 112 18 138/81 (100) 95 11/13/17 10:25 I/O 11/13/17 11/13/17 11/13/17 11/14/17 11/14/17 11/14/17 06:59 14:59 22:59 06:59 14:59 22:59 Intake Total 240 ml 480 ml Balance 240 ml 480 ml Intake Oral 240 ml 480 ml # Voids 1 Result Diagram: 11/14/17 0832 11/13/17 0752 Objective Remarks GENERAL: This is a well-nourished, well-developed patient, in no apparent distress. SKIN: No rashes, ecchymoses or lesions. Cool and dry. HEAD: Atraumatic. Normocephalic. No temporal or scalp tenderness. EYES: Pupils equal round and reactive. Extraocular motions intact. No scleral icterus. No injection or drainage. ENT: Nose without bleeding, purulent drainage or septal hematoma. Throat without erythema, tonsillar hypertrophy or exudate. Uvula midline. Airway patent. NECK: Trachea midline. No JVD or lymphadenopathy. Supple, nontender, no meningeal signs. CARDIOVASCULAR: Regular rate and rhythm without murmurs, gallops, or rubs. RESPIRATORY: Clear to auscultation. Breath sounds equal bilaterally. No wheezes , rales, or rhonchi. GASTROINTESTINAL: Abdomen soft, non-tender, nondistended. No hepato-splenomegaly , or palpable masses. No guarding. MUSCULOSKELETAL: Extremities without clubbing, cyanosis, or edema. No joint tenderness, effusion, or edema noted. No calf tenderness. Negative Homans sign bilaterally. NEUROLOGICAL: Awake and alert. Cranial nerves II through XII intact. Motor and sensory grossly within normal limits. Five out of 5 muscle strength in all muscle groups. Normal speech. Medications and IVs Current Medications Medications (Trade) Dose Ordered Sig/Emy Route Start Time Stop Time Status Last Admin (Ativan) 1 mg Q6H PRN PO 11/13/17 09:30 11/13/17 23:16 (Ativan Inj) 1 mg Q6H PRN IM 11/13/17 09:30 11/13/17 11:39 (Tylenol) 650 mg Q4H PRN PO 11/13/17 09:30 (Milk Of Magnesia Liq) 30 ml DAILY PRN PO 11/13/17 09:30 (Mag-Al Plus Susp Liq) 30 ml Q6H PRN PO 11/13/17 09:30 (Folate) 1 mg DAILY PO 11/14/17 09:00 (LaMICtal) 200 mg BID PO 11/13/17 21:00 11/13/17 21:15 (Topamax) 25 mg Q12HR PO 11/13/17 13:00 11/13/17 21:15 (risperDAL) 0.5 mg BID PO 11/14/17 09:00 (Keppra) 750 mg Q12HR PO 11/14/17 09:00 A/P Assessment and Plan This is a 33-year-old female with history of seizure disorders who was recently admitted secondary to uncontrolled seizures who left A and was readmitted due to psychosis. Psychosis During previous admission patient was started on Abilify by psychiatry. - Management per psychiatrist since patient will be admitted to inpatient psychiatry. Seizure disorder Has not had further seizures. Recent study showed abnormal EEG with seizure activity. CT scan of the brain did not show anything acute. Unable to do MRI of the brain due to vagus nerve stimulator. - Continue with Lamictal. - We will start Keppra 750 mg by mouth twice a day and Topamax 25 mg twice a day as directed by neurologist Dr. Bueno which was recommended on previous admission. Neurology consult is pending this admission. DVT prophylaxis -Low risk. Encourage ambulation. Discharge Planning Per Bert Mendoza DO Nov 14, 2017 09:22
[2017-11-14 09:38] LABS: ALBUMIN 3.9 GM/DL (3.4-5.0); AST (GOT) 12 U/L (15-37); BICARBONATE 25.7 MEQ/L (21.0-32.0); BLOOD UREA NITROGEN 9 MG/DL (7-18); CALCIUM 9.4 MG/DL (8.5-10.1); CHLORIDE 104 MEQ/L (98-107); CREATININE 0.99 MG/DL (0.50-1.00); GLOMERULAR FILTRATION RATE 64 ML/MIN (>89); GLUCOSE,RANDOM 78 MG/DL (74-106); SODIUM (NA) 138 MEQ/L (136-145)
[2017-11-14 09:40] LABS: CHOLESTEROL 162 MG/DL (120-200); TRIGLYCERIDES 64 MG/DL (42-150)
[2017-11-14] MEDS: risperiDONE 0.5 MG TAB PO SCH ×2 (09:40→21:00)
[2017-11-14] MEDS: TOPIRAMATE 25 MG TAB PO SCH ×2 (09:40→20:57)
[2017-11-14] MEDS: FOLIC ACID 1 MG TAB PO SCH (09:41)
[2017-11-14] MEDS: lamoTRIgine 100 MG TAB PO SCH ×2 (09:41→20:57)
[2017-11-14 10:13] LABS: ALKALINE PHOSPHATASE 77 U/L (45-117); ALT (GPT) 12 U/L (10-53); CHOLESTEROL/ HDL RATIO 2.92 RATIO; HDL CHOLESTEROL 55.3 MG/DL (40.0-60.0); LDL CHOLESTEROL 94 MG/DL (0-99); TOTAL BILIRUBIN ADULT 0.3 MG/DL (0.2-1.0); TOTAL PROTEIN 7.5 GM/DL (6.4-8.2)
--- NOTE | 2017-11-14 11:16 | EKG ---
Date Performed: 11/14/2017 Time Performed: 08:24:30 PTAGE: 32 years EKG: SINUS TACHYCARDIA NONSPECIFIC ST & T-WAVE ABNORMALITY ABNORMAL RHYTHM ECG Compared to prior electrocardiogram, rate has increased PREVIOUS TRACING : 07/18/2017 09.38 DOCTOR: Solis Hallman Interpretating Date/Time 11/14/2017 11:15:11
--- NOTE | 2017-11-14 11:24 | MB ---
cc: ADIN SCHREIBER M.D. DATE OF CONSULTATION 11/14/2017 HISTORY OF PRESENT ILLNESS I have known the patient for many years. She has been on multiple medication regimens without much efficacy. I had her on phenobarbital and Zarontin back in 2002. She was on Zarontin 750 in the morning and 500 at night, and phenobarbital 150 in the morning and 180 at night. She usually did better when her phenobarbital level is up around 60. That was back in 2002. Recently admitted 11/08/[address] Bueno. Had been on Topamax 25, b.i.d., Lamictal 200, b.i.d., Onfi dose unclear, folic acid and lorazepam. He had added Keppra 750, b.i.d. I am not sure she took it when she left. She then came back in because she was having some visual hallucinations and was seeing people over on the side of her vision; that is unusual for her. She had EEGs which are positive here this month and showed some poly spike wave, brief, and also some other epileptiform activity. She is seen at times up at [facility]. She has been on all medicines in the past without great efficacy. No hallucinations overnight. MEDICATIONS Current medications: 1. Folic acid. 2. Risperdal 0.5, b.i.d. 3. Keppra 750, q.12h. 4. Lamictal 200, b.i.d. 5. Topamax 25, q.12h. 6. Ativan. PHYSICAL EXAMINATION VITAL SIGNS: 90, afebrile, 16, 112/52. NEUROLOGIC: She is awake and alert. Speech is fluent. She is not aphasic. No asterixis. Normal gait. She had normal strength throughout. Visual nowak are full. No nystagmus. LABORATORY CBC normal. Sed rate was normal in 2010. RPR has been negative. DAYSI has been negative in the past. Urine drug screen here positive for benzos only. Basic metabolic profile normal. LFTs normal. Cholesterol and TSH all normal. B12 was normal last week. Coags normal. ABG normal in 2014. IMAGING CAT scan of her brain done a week ago that was normal. She had a CT scan of her cervical spine was negative in June 2017. IMPRESSION AND RECOMMENDATIONS Lifelong history of seizure disorder, very hard to treat. I think now will increase her Keppra to 1000, twice a day. I think she should follow-up at [facility] to see if there is anything more they can do for her. She will be okay to be discharged neurologically. We need to talk with her boyfriend to make sure that he knows that she is on the Keppra 1000, b.i.d., because I am not sure she actually took it when she left here. Adin Schreiber MD DJM/BT /9:56 AM /11:06 AM
[2017-11-14 14:23] LABS: HEMOGLOBIN A1C 4.9 % (4.3-6.0)
[2017-11-14] MEDS ORDERED: POTASSIUM CHLORIDE 25 MEQ EFFERVESCENT TAB PO ONE (14:30)
[2017-11-14 17:08] VITALS: BP 103/53; PULSE 112; RESP 16; TEMP 97.4; O2SAT 98
[2017-11-14] MEDS: levETIRAcetam 500 MG TAB PO SCH (20:57)
[2017-11-15 05:47] LABS: BICARBONATE 25.3 MEQ/L (21.0-32.0); CALCIUM 8.4 MG/DL (8.5-10.1); CREATININE 0.84 MG/DL (0.50-1.00); MAGNESIUM 1.9 MG/DL (1.5-2.5)
[2017-11-15 06:00] VITALS: BP 94/44; PULSE 79; RESP 16; TEMP 98.3; O2SAT 99
--- NOTE | 2017-11-15 08:49 | HHI.PR ---
Objective Vital Signs Date Time Temp Pulse Resp B/P (MAP) Pulse Ox O2 Delivery O2 Flow Rate FiO2 11/15/17 06:00 98.3 79 16 94/44 (61) 99 11/14/17 17:08 97.4 112 16 103/53 (70) 98 I/O 11/14/17 11/14/17 11/14/17 11/15/17 11/15/17 11/15/17 07:00 15:00 23:00 07:00 15:00 23:00 Intake Total 240 ml 720 ml 1440 ml Balance 240 ml 720 ml 1440 ml Intake Oral 240 ml 720 ml 1440 ml # Voids 1 2 Result Diagram: 11/14/17 0832 11/15/17 0445 Other Results awake alert nad Assessment and Plan Assessment and Plan imp no sz overnoc and no hallucinations ok by me dc on top lamictal and the keppra 1000 bid] need shands fu will sign off Adin De La Torre MD Nov 15, 2017 08:49
[2017-11-15] MEDS ORDERED: POTASSIUM CHLORIDE 20 MEQ CONTROLLED RELEASE TAB PO ONE (09:00)
[2017-11-15] MEDS: TOPIRAMATE 25 MG TAB PO SCH ×4 (09:49→20:53)
[2017-11-15] MEDS: FOLIC ACID 1 MG TAB PO SCH (09:49)
[2017-11-15] MEDS: levETIRAcetam 500 MG TAB PO SCH ×2 (09:49→20:37)
[2017-11-15] MEDS: risperiDONE 0.5 MG TAB PO SCH (09:49)
[2017-11-15] MEDS: lamoTRIgine 100 MG TAB PO SCH ×2 (09:49→20:38)
--- NOTE | 2017-11-15 09:52 | HHI.PR ---
Subjective Remarks The patient stated that she was no longer hallucinating today. She said that she felt cold. No further seizures noted. Discussed with nursing. Objective Vitals Vital Signs Date Time Temp Pulse Resp B/P (MAP) Pulse Ox O2 Delivery O2 Flow Rate FiO2 11/15/17 06:00 98.3 79 16 94/44 (61) 99 11/14/17 17:08 97.4 112 16 103/53 (70) 98 I/O 11/14/17 11/14/17 11/14/17 11/15/17 11/15/17 11/15/17 07:00 15:00 23:00 07:00 15:00 23:00 Intake Total 240 ml 720 ml 1440 ml Balance 240 ml 720 ml 1440 ml Intake Oral 240 ml 720 ml 1440 ml # Voids 1 2 Result Diagram: 11/14/17 0832 11/15/17 0445 Objective Remarks GENERAL: This is a well-nourished, well-developed patient, in no apparent distress. SKIN: No rashes, ecchymoses. Cool and dry. HEAD: Atraumatic. Normocephalic. No temporal or scalp tenderness. EYES: Pupils equal round and reactive. Extraocular motions intact. No scleral icterus. No injection or drainage. ENT: Nose without bleeding, purulent drainage or septal hematoma. Throat without erythema, tonsillar hypertrophy or exudate. Uvula midline. Airway patent. NECK: Trachea midline. No JVD or lymphadenopathy. Supple, nontender, no meningeal signs. CARDIOVASCULAR: Regular rate and rhythm without murmurs, gallops, or rubs. RESPIRATORY: Clear to auscultation. Breath sounds equal bilaterally. No wheezes , rales, or rhonchi. GASTROINTESTINAL: Abdomen soft, non-tender, nondistended. No hepato-splenomegaly , or palpable masses. No guarding. MUSCULOSKELETAL: Extremities without clubbing, cyanosis, or edema. No joint tenderness, effusion, or edema noted. No calf tenderness. Negative Homans sign bilaterally. NEUROLOGICAL: Awake and alert. Cranial nerves II through XII intact. Motor and sensory grossly within normal limits. Five out of 5 muscle strength in all muscle groups. Normal speech. Medications and IVs Current Medications Medications (Trade) Dose Ordered Sig/Emy Route Start Time Stop Time Status Last Admin (Ativan) 1 mg Q6H PRN PO 11/13/17 09:30 11/13/17 23:16 (Ativan Inj) 1 mg Q6H PRN IM 11/13/17 09:30 11/13/17 11:39 (Tylenol) 650 mg Q4H PRN PO 11/13/17 09:30 (Milk Of Magnesia Liq) 30 ml DAILY PRN PO 11/13/17 09:30 (Mag-Al Plus Susp Liq) 30 ml Q6H PRN PO 11/13/17 09:30 (Folate) 1 mg DAILY PO 11/14/17 09:00 11/14/17 09:41 (LaMICtal) 200 mg BID PO 11/13/17 21:00 11/14/17 20:57 (Topamax) 25 mg Q12HR PO 11/13/17 13:00 11/14/17 20:57 (risperDAL) 0.5 mg BID PO 11/14/17 09:00 11/14/17 21:00 (Keppra) 1,000 mg Q12HR PO 11/14/17 21:00 11/14/17 20:57 A/P Assessment and Plan This is a 33-year-old female with history of seizure disorders who was recently admitted secondary to uncontrolled seizures who left [facility] and was readmitted due to psychosis. Psychosis During previous admission patient was started on Abilify by psychiatry. - Management per psychiatry. Seizure disorder Has not had further seizures. Recent study showed abnormal EEG with seizure activity. CT scan of the brain did not show anything acute. Unable to do MRI of the brain due to vagus nerve stimulator. Neurology consultation appreciated. - Continue with Lamictal and Topamax. Keppra increased to 1000 mg twice a day per neurology. - Outpatient follow-up with neurology. Toe wound Minor wound noted on exam. - Triple antibiotic ointment daily. DVT prophylaxis: ambulation Discharge Planning Per Bert Mendoza DO Nov 15, 2017 09:52
[2017-11-15] MEDS: NEOMYCIN/POLYMYXIN/BACITRACIN OINT 15 GM TUBE TOPICAL SCH (10:14)
--- NOTE | 2017-11-15 11:23 | HHI.PR ---
Subjective History of Present Illness Patient feel better today no hallicination. d/w RN at bed side. Review of Systems Constitutional Constitutional: Fatigue, Weakness Vitals/Results Vital Signs Vital Signs Date Time Temp Pulse Resp B/P (MAP) Pulse Ox O2 Delivery O2 Flow Rate FiO2 11/15/17 06:00 98.3 79 16 94/44 (61) 99 11/14/17 17:08 97.4 112 16 103/53 (70) 98 CBC/BMP: 11/14/17 0832 11/15/17 0445 Lab Results Laboratory Tests Test 11/15/17 04:45 Blood Urea Nitrogen 12 MG/DL Creatinine 0.84 MG/DL Random Glucose 88 MG/DL Calcium Level 8.4 MG/DL Magnesium Level 1.9 MG/DL Sodium Level 140 MEQ/L Potassium Level 3.5 MEQ/L Chloride Level 107 MEQ/L Carbon Dioxide Level 25.3 MEQ/L Anion Gap 8 MEQ/L Estimat Glomerular Filtration Rate 78 ML/MIN Physical Exam General General Appearance: Well Developed, Well Nourished, No Acute Distress, Comfortable Eyes Eye Exam: Sclera White, Extraocular Movement Intact Throat Throat Exam: Oral Mucosa [place] & Moist, Oral Pharynx Normal Neck Neck Exam: Neck Supple, Trachea Midline Pulmonary Resp Exam: Clear Bilaterally, Breath Sounds Equal, No Distress Cardiology CV Exam: Regular, Normal Sinus Rhythm Gastrointestinal/Abdomen GI Exam: Soft, Non-Tender, Bowel Sounds Present Integumentary Skin Exam: Clear, Warm, Dry, Intact Extremeties Extremities Exam: No Edema Neurologic Neuro Exam: Alert, Awake, Oriented, Speech Clear, Moving All Extremities, No Focal Deficits Psychiatric Psych Exam: Appropriate Responses Assessment/Plan Assessment/Plan Assessment and Plan This is a 33-year-old female with history of seizure disorders who was recently admitted secondary to uncontrolled seizures who left [facility] and was readmitted due to psychosis. Psychosis During previous admission patient was started on Abilify by psychiatry. - Management per psychiatry. Seizure disorder Has not had further seizures. Recent study showed abnormal EEG with seizure activity. CT scan of the brain did not show anything acute. Unable to do MRI of the brain due to vagus nerve stimulator. Neurology consultation appreciated. - Continue with Lamictal and Topamax. Keppra increased to 1000 mg twice a day per neurology. - Outpatient follow-up with neurology. Toe wound Minor wound noted on exam. - Triple antibiotic ointment daily. DVT prophylaxis: ambulation Discussed Condition with: Patient Stef Hicks MD Nov 15, 2017 11:23
--- NOTE | 2017-11-15 12:33 | HHI.PYPN ---
Subjective Remarks The patient was seen today for psychiatric reevaluation. She was also seen for a second opinion. Chart was reviewed. The case was discussed with the nurse in charge and with the neurologist. On psychiatric evaluation patient is calm, cooperative and pleasant. However, she continues to show confusion, speech latency, thought blocking, slow to process and periodic visual hallucinations. Most of the time the patient is logical, coherent and relevant, but frequently the patient spaces out. Even though she denies visual hallucinations, she told me that she has been watching people in the TV while the TV is off. The patient is oriented 3, but she doesn't know who was the collection advisor who was the president before. She has been compliant with medications, no significant side effects, no agitation, no aggressive behavior reported. Review of Systems Psychiatric: COMPLAINS OF: Confusion, Hallucinations Except as stated in HPI: all other systems reviewed are Neg Mental Status Examination Appearance: Disheveled Consciousness: Alert Orientation: Person Motor Activity: Normal gait Speech: Hesitant, Other Language: Adequate Fund of Knowledge: Inadequate Attention and Concentration: Inadequate Memory: Impaired Mood: Anxious Affect: Anxious Thought Process & Associations: Loose associations, Linear Thought Content: Bizarre thinking, Hallucinations, Delusional Hallucination Type: Visual Delusion Type: None, Bizarre Suicidal Ideation: No Suicidal Plan: No Suicidal Intention: No Homicidal Ideation: No Homicidal Plan: No Homicidal Intention: No Insight: Fair Judgment: Impulsive Results Labs Test 11/15/17 04:45 Blood Urea Nitrogen 12 MG/DL Creatinine 0.84 MG/DL Random Glucose 88 MG/DL Calcium Level 8.4 MG/DL Magnesium Level 1.9 MG/DL Sodium Level 140 MEQ/L Potassium Level 3.5 MEQ/L Chloride Level 107 MEQ/L Carbon Dioxide Level 25.3 MEQ/L Anion Gap 8 MEQ/L Estimat Glomerular Filtration Rate 78 ML/MIN Vitals/IOs Vital Signs Date Time Temp Pulse Resp B/P (MAP) Pulse Ox O2 Delivery O2 Flow Rate FiO2 11/15/17 06:00 98.3 79 16 94/44 (61) 99 Assessment & Plan Problem List: (1) Brief psychotic disorder ICD Codes: F23 - Brief psychotic disorder Assessment & Plan: Patient has responded appropriately to psychotropics and to antiepileptics, she continues to show confusion and psychosis. We'll increase Risperdal to 1 mg twice a day. Assessment & Plan Estimated LOS: days Justification for Cont. Inpt. Patient has an increased risk to decompensate at a lower level of care. Preet Cook MD Nov 15, 2017 12:33
[2017-11-15 17:00] VITALS: BP 105/56; PULSE 90; RESP 16; TEMP 98.2; O2SAT 100
[2017-11-15] MEDS: risperiDONE 1 MG TAB PO SCH (20:38)
[2017-11-15] MEDS: LORazepam 1 MG TAB PO PRN (21:45)
[2017-11-15 22:00] VITALS: BP 126/59; PULSE 110; RESP 18; TEMP 98.2; O2SAT 100
[2017-11-16 03:45] VITALS: BP 117/71; PULSE 89; RESP 20; TEMP 98; O2SAT 100
[2017-11-16] MEDS: LORazepam 1 MG TAB PO PRN (03:54)
[2017-11-16 05:07] VITALS: BP 123/70; PULSE 97; RESP 16; TEMP 97.8; O2SAT 100
[2017-11-16] MEDS ORDERED: ALPRAZolam 0.5 MG TAB PO ONE (05:15)
[2017-11-16] MEDS: risperiDONE 1 MG TAB PO SCH ×2 (10:07→21:18)
[2017-11-16] MEDS: FOLIC ACID 1 MG TAB PO SCH (10:07)
[2017-11-16] MEDS: levETIRAcetam 500 MG TAB PO SCH ×2 (10:07→21:18)
[2017-11-16] MEDS: lamoTRIgine 100 MG TAB PO SCH ×2 (10:07→21:18)
[2017-11-16] MEDS: TOPIRAMATE 25 MG TAB PO SCH ×2 (10:08→21:18)
[2017-11-16] MEDS: NEOMYCIN/POLYMYXIN/BACITRACIN OINT 15 GM TUBE TOPICAL SCH (10:10)
--- NOTE | 2017-11-16 10:58 | HHI.PR ---
Subjective History of Present Illness Patient feel better today . d/w RN at bed side. Review of Systems Constitutional Constitutional: Fatigue, Weakness Vitals/Results Intake & Output 11/16/17 11/16/17 11/17/17 15:00 23:00 07:00 Intake Total 0 ml Balance 0 ml Intake Oral 0 ml Vital Signs Vital Signs Date Time Temp Pulse Resp B/P (MAP) Pulse Ox O2 Delivery O2 Flow Rate FiO2 11/16/17 05:07 97.8 97 16 123/70 (87) 100 11/16/17 03:45 98.0 89 20 117/71 (86) 100 11/15/17 22:00 98.2 110 18 126/59 (81) 100 11/15/17 17:00 98.2 90 16 105/56 (72) 100 CBC/BMP: 11/14/17 0832 11/15/17 0445 Physical Exam General General Appearance: Well Developed, Well Nourished, No Acute Distress, Comfortable Eyes Eye Exam: Sclera White, Extraocular Movement Intact Throat Throat Exam: Oral Mucosa [place] & Moist, Oral Pharynx Normal Neck Neck Exam: Neck Supple, Trachea Midline Pulmonary Resp Exam: Clear Bilaterally, Breath Sounds Equal, No Distress Cardiology CV Exam: Regular, Normal Sinus Rhythm Gastrointestinal/Abdomen GI Exam: Soft, Non-Tender, Bowel Sounds Present Integumentary Skin Exam: Clear, Warm, Dry, Intact Extremeties Extremities Exam: No Edema Neurologic Neuro Exam: Alert, Awake, Oriented, Speech Clear, Moving All Extremities, No Focal Deficits Psychiatric Psych Exam: Appropriate Responses Assessment/Plan Assessment/Plan Assessment and Plan This is a 33-year-old female with history of seizure disorders who was recently admitted secondary to uncontrolled seizures who left [facility] and was readmitted due to psychosis. Psychosis During previous admission patient was started on Abilify by psychiatry. now on Resperidal 1 mg BID. - Management per psychiatry. Seizure disorder Has not had further seizures. Recent study showed abnormal EEG with seizure activity. CT scan of the brain did not show anything acute. Unable to do MRI of the brain due to vagus nerve stimulator. Neurology consultation appreciated. - Continue with Lamictal and Topamax. Keppra 1000 mg twice a day per neurology. - Outpatient follow-up with neurology. Toe wound Minor wound noted on exam. - Triple antibiotic ointment daily. DVT prophylaxis: ambulation Discussed Condition with: Patient Stef Hicks MD Nov 16, 2017 10:58
--- NOTE | 2017-11-16 12:00 | HHI.PYPN ---
Subjective Remarks Patient was seen today for psychiatric reevaluation. Chart was reviewed. Case discussed with nursing charge. Patient continues to be very guarded, with speech reticency, blocking thought, very slow thought processes, seems to be very confused. She is oriented 3. She has been pacing back and forward in the unit, a little bit restless, internally preoccupied. She has been taking her medications, no significant side effects reported. Mental Status Examination Appearance: Disheveled Consciousness: Alert Orientation: Person Motor Activity: Normal gait Speech: Hesitant, Other Language: Adequate Fund of Knowledge: Inadequate Attention and Concentration: Inadequate Memory: Impaired Mood: Anxious Affect: Anxious Thought Process & Associations: Loose associations, Linear Thought Content: Bizarre thinking, Hallucinations, Delusional Hallucination Type: Visual Delusion Type: None, Bizarre Suicidal Ideation: No Suicidal Plan: No Suicidal Intention: No Homicidal Ideation: No Homicidal Plan: No Homicidal Intention: No Insight: Fair Judgment: Impulsive Results Vitals/IOs Vital Signs Date Time Temp Pulse Resp B/P (MAP) Pulse Ox O2 Delivery O2 Flow Rate FiO2 11/16/17 05:07 97.8 97 16 123/70 (87) 100 Intake and Output 11/16/17 11/16/17 11/17/17 08:00 16:00 00:00 Intake Total 0 ml Balance 0 ml Assessment & Plan Problem List: (1) Brief psychotic disorder ICD Codes: F23 - Brief psychotic disorder Assessment & Plan: Patient continues to be acutely psychotic. Responding moderately to medications. I increased Risperdal yesterday. Continue same dose. Assessment & Plan Estimated LOS: days Justification for Cont. Inpt. Patient is acutely psychotic, she needs to continue psychiatric hospitalization for stabilization. Preet Cook MD Nov 16, 2017 12:00
[2017-11-16 15:15] VITALS: BP 101/64; PULSE 99; RESP 18; TEMP 97.6; O2SAT 99
[2017-11-16] MEDS ORDERED: LORazepam 2 MG TAB PO ONE (15:45)
[2017-11-16 17:26] VITALS: BP 105/55; PULSE 114; RESP 18; TEMP 97.3; O2SAT 100
[2017-11-17 02:34] VITALS: BP 114/58; PULSE 65; RESP 18; TEMP 97.8; O2SAT 95
[2017-11-17 04:37] VITALS: BP 115/65; PULSE 97; RESP 18; TEMP 97.9; O2SAT 100
[2017-11-17] MEDS: NEOMYCIN/POLYMYXIN/BACITRACIN OINT 15 GM TUBE TOPICAL SCH (05:58)
[2017-11-17] MEDS: LORazepam 1 MG TAB PO PRN (05:59)
[2017-11-17] MEDS: FOLIC ACID 1 MG TAB PO SCH (08:32)
[2017-11-17] MEDS: risperiDONE 1 MG TAB PO SCH ×2 (08:32→20:54)
[2017-11-17] MEDS: TOPIRAMATE 25 MG TAB PO SCH ×2 (08:33→20:54)
[2017-11-17] MEDS: lamoTRIgine 100 MG TAB PO SCH ×2 (08:33→20:54)
[2017-11-17] MEDS: levETIRAcetam 500 MG TAB PO SCH ×2 (08:33→20:54)
[2017-11-17 08:50] LABS: AUTOMATED NEUTROPHIL # 5.4 TH/MM3 (1.8-7.7); BASOPHIL # 0.1 TH/MM3 (0-0.2); BASOPHIL % 0.7 % (0.0-2.0); EOSINOPHIL # 0.1 TH/MM3 (0-0.4); EOSINOPHIL % 1.1 % (0.0-4.0); HEMATOCRIT 35.2 % (35.0-46.0); HEMOGLOBIN 11.7 GM/DL (11.6-15.3); LYMPH % 22.9 % (9.0-44.0); LYMPHOCYTE # 1.8 TH/MM3 (1.0-4.8); MEAN CELL VOLUME 81.5 FL (80.0-100.0); MEAN CORPUSCULAR HGB CONC 33.2 % (32.0-36.0); MEAN PLATELET VOLUME 7.7 FL (7.0-11.0); MONO % 5.5 % (0.0-8.0); MONOCYTE # 0.4 TH/MM3 (0-0.9); NEUT % 69.8 % (16.0-70.0); PLATELET COUNT 275 TH/MM3 (150-450); RED BLOOD COUNT 4.32 MIL/MM3 (4.00-5.30); RED CELL DISTRIBUTION WIDTH 16.2 % (11.6-17.2); WHITE BLOOD COUNT 7.8 TH/MM3 (4.0-11.0)
[2017-11-17 09:40] LABS: BLOOD UREA NITROGEN 11 MG/DL (7-18); CREATININE 1.05 MG/DL (0.50-1.00); GLOMERULAR FILTRATION RATE 60 ML/MIN (>89); GLUCOSE,RANDOM 97 MG/DL (74-106); TOTAL PROTEIN 8.1 GM/DL (6.4-8.2)
[2017-11-17 09:41] LABS: ALBUMIN 4.2 GM/DL (3.4-5.0); ALKALINE PHOSPHATASE 87 U/L (45-117); ALT (GPT) 12 U/L (10-53); AST (GOT) 11 U/L (15-37); BICARBONATE 25.9 MEQ/L (21.0-32.0); CALCIUM 9.4 MG/DL (8.5-10.1); CHLORIDE 105 MEQ/L (98-107); SODIUM (NA) 137 MEQ/L (136-145); TOTAL BILIRUBIN ADULT 0.3 MG/DL (0.2-1.0)
--- NOTE | 2017-11-17 16:03 | HHI.PYPN ---
Subjective Remarks Patient seen for follow-up, chart reviewed. Discussion she staff reported the patient had an apparent seizure last evening were patient had fallen near the nurse's station which neurologist Dr. De La Torre was contacted does not make any further recommendations or changes to her current regimen. Patient was found sitting in hospital bed eating breakfast, cooperative. Patient was noted to be more interactive with his improved attention during interview but has slight verbal response to questioning. Patient states that she had a good weekend, reported that at this time she does not feel she is sick stating that she came to the hospital because she fell. Patient reports that she has spoken to her over the phone recently and plans to have a visit from them today. Patient reports having had visual hallucinations but nothing recently. Patient also denies any auditory hallucinations or delusions at this time. He mentions that she has a neurologist she follows up with, Dr. Wilkinson. Patient reports feeling "okay" denies any SI or HI. Review of Systems Except as stated in HPI: all other systems reviewed are Neg Mental Status Examination Appearance: Disheveled Consciousness: Alert Orientation: Person, Place Motor Activity: Normal gait Speech: Hesitant, Other Language: Adequate Fund of Knowledge: Inadequate Attention and Concentration: Inadequate (but improved) Memory: Impaired Mood: Appropriate Affect: Appropriate Thought Process & Associations: Linear, Other (concrete) Thought Content: Hallucinations (denies at this time), Delusional (none today) Hallucination Type: Visual Delusion Type: None Suicidal Ideation: No Suicidal Plan: No Suicidal Intention: No Homicidal Ideation: No Homicidal Plan: No Homicidal Intention: No Insight: Fair Judgment: Impulsive Results Labs labs reviewed Test 11/17/17 08:20 White Blood Count 7.8 TH/MM3 Red Blood Count 4.32 MIL/MM3 Hemoglobin 11.7 GM/DL Hematocrit 35.2 % Mean Corpuscular Volume 81.5 FL Mean Corpuscular Hemoglobin 27.0 PG Mean Corpuscular Hemoglobin Concent 33.2 % Red Cell Distribution Width 16.2 % Platelet Count 275 TH/MM3 Mean Platelet Volume 7.7 FL Neutrophils (%) (Auto) 69.8 % Lymphocytes (%) (Auto) 22.9 % Monocytes (%) (Auto) 5.5 % Eosinophils (%) (Auto) 1.1 % Basophils (%) (Auto) 0.7 % Neutrophils # (Auto) 5.4 TH/MM3 Lymphocytes # (Auto) 1.8 TH/MM3 Monocytes # (Auto) 0.4 TH/MM3 Eosinophils # (Auto) 0.1 TH/MM3 Basophils # (Auto) 0.1 TH/MM3 CBC Comment DIFF FINAL Differential Comment Blood Urea Nitrogen 11 MG/DL Creatinine 1.05 MG/DL Random Glucose 97 MG/DL Total Protein 8.1 GM/DL Albumin 4.2 GM/DL Calcium Level 9.4 MG/DL Alkaline Phosphatase 87 U/L Aspartate Amino Transf (AST/SGOT) 11 U/L Alanine Aminotransferase (ALT/SGPT) 12 U/L Total Bilirubin 0.3 MG/DL Sodium Level 137 MEQ/L Potassium Level 3.5 MEQ/L Chloride Level 105 MEQ/L Carbon Dioxide Level 25.9 MEQ/L Anion Gap 6 MEQ/L Estimat Glomerular Filtration Rate 60 ML/MIN Vitals/IOs Vital Signs Date Time Temp Pulse Resp B/P (MAP) Pulse Ox O2 Delivery O2 Flow Rate FiO2 11/17/17 04:37 97.9 97 18 115/65 (82) 100 Intake and Output 11/17/17 11/17/17 11/18/17 08:00 16:00 00:00 Intake Total 120 ml 120 ml Balance 120 ml 120 ml Assessment & Plan Problem List: (1) Brief psychotic disorder ICD Codes: F23 - Brief psychotic disorder Assessment & Plan Patient at this time noted to be more reactive and engaging in interview, continues to have some slight delay in response, denying any perceptual disturbances or delusions at this time. Patient had recent seizure yesterday which neurology consult denied having any change or recommendations to her current regimen at this time. Due to monitor for mood and behavior, continue seizure precautions, continue recommendations her primary medical team. Patient will have visit with family to assess baseline. We'll add diphenhydramine 50 mg by mouth at bedtime when necessary insomnia Discharge planning in progress Justification for Cont. Inpt. At risk for further decompensation if at lower level of care Discharge Planning Discharged home when medically and psychiatrically cleared Saravanan Guerin MD Nov 17, 2017 16:03
[2017-11-17 18:00] VITALS: BP 155/77; PULSE 98; RESP 20; TEMP 98.4; O2SAT 97
--- NOTE | 2017-11-17 18:47 | HHI.PR ---
Subjective History of Present Illness Patient feel better today . d/w RN at bed side. discharge plan when ok with all. Review of Systems Constitutional Constitutional: Fatigue, Weakness Vitals/Results Intake & Output 11/17/17 11/17/17 11/18/17 15:00 23:00 07:00 Intake Total 600 ml 240 ml Balance 600 ml 240 ml Intake Oral 600 ml 240 ml # Voids 3 Vital Signs Vital Signs Date Time Temp Pulse Resp B/P (MAP) Pulse Ox O2 Delivery O2 Flow Rate FiO2 11/17/17 18:00 98.4 98 20 155/77 (103) 97 11/17/17 04:37 97.9 97 18 115/65 (82) 100 11/17/17 02:34 97.8 65 18 114/58 (76) 95 CBC/BMP: 11/17/17 0820 11/17/17 0820 Lab Results Laboratory Tests Test 11/17/17 08:20 White Blood Count 7.8 TH/MM3 Red Blood Count 4.32 MIL/MM3 Hemoglobin 11.7 GM/DL Hematocrit 35.2 % Mean Corpuscular Volume 81.5 FL Mean Corpuscular Hemoglobin 27.0 PG Mean Corpuscular Hemoglobin Concent 33.2 % Red Cell Distribution Width 16.2 % Platelet Count 275 TH/MM3 Mean Platelet Volume 7.7 FL Neutrophils (%) (Auto) 69.8 % Lymphocytes (%) (Auto) 22.9 % Monocytes (%) (Auto) 5.5 % Eosinophils (%) (Auto) 1.1 % Basophils (%) (Auto) 0.7 % Neutrophils # (Auto) 5.4 TH/MM3 Lymphocytes # (Auto) 1.8 TH/MM3 Monocytes # (Auto) 0.4 TH/MM3 Eosinophils # (Auto) 0.1 TH/MM3 Basophils # (Auto) 0.1 TH/MM3 CBC Comment DIFF FINAL Differential Comment Blood Urea Nitrogen 11 MG/DL Creatinine 1.05 MG/DL Random Glucose 97 MG/DL Total Protein 8.1 GM/DL Albumin 4.2 GM/DL Calcium Level 9.4 MG/DL Alkaline Phosphatase 87 U/L Aspartate Amino Transf (AST/SGOT) 11 U/L Alanine Aminotransferase (ALT/SGPT) 12 U/L Total Bilirubin 0.3 MG/DL Sodium Level 137 MEQ/L Potassium Level 3.5 MEQ/L Chloride Level 105 MEQ/L Carbon Dioxide Level 25.9 MEQ/L Anion Gap 6 MEQ/L Estimat Glomerular Filtration Rate 60 ML/MIN Physical Exam General General Appearance: Well Developed, Well Nourished, No Acute Distress, Comfortable Eyes Eye Exam: Sclera White, Extraocular Movement Intact Throat Throat Exam: Oral Mucosa [place] & Moist, Oral Pharynx Normal Neck Neck Exam: Neck Supple, Trachea Midline Pulmonary Resp Exam: Clear Bilaterally, Breath Sounds Equal, No Distress Cardiology CV Exam: Regular, Normal Sinus Rhythm Gastrointestinal/Abdomen GI Exam: Soft, Non-Tender, Bowel Sounds Present Integumentary Skin Exam: Clear, Warm, Dry, Intact Extremeties Extremities Exam: No Edema Neurologic Neuro Exam: Alert, Awake, Oriented, Speech Clear, Moving All Extremities, No Focal Deficits Psychiatric Psych Exam: Appropriate Responses Assessment/Plan Assessment/Plan Assessment and Plan This is a 33-year-old female with history of seizure disorders who was recently admitted secondary to uncontrolled seizures who left [facility] and was readmitted due to psychosis. Psychosis During previous admission patient was started on Abilify by psychiatry. now on Resperidal 1 mg BID. - Management per psychiatry. Seizure disorder Has not had further seizures. Recent study showed abnormal EEG with seizure activity. CT scan of the brain did not show anything acute. Unable to do MRI of the brain due to vagus nerve stimulator. Neurology consultation appreciated. - Continue with Lamictal and Topamax. Keppra 1000 mg twice a day per neurology. - Outpatient follow-up with neurology. Toe wound Minor wound noted on exam. - Triple antibiotic ointment daily. DVT prophylaxis: ambulation Stef Hicks MD Nov 17, 2017 18:47
[2017-11-17] MEDS: diphenhydrAMINE HCL 50 MG CAP PO PRN (20:54)
[2017-11-18 05:52] VITALS: BP 109/66; PULSE 99; RESP 21; TEMP 96.2; O2SAT 100
[2017-11-18] MEDS: FOLIC ACID 1 MG TAB PO SCH (08:39)
[2017-11-18] MEDS: NEOMYCIN/POLYMYXIN/BACITRACIN OINT 15 GM TUBE TOPICAL SCH (08:40)
[2017-11-18] MEDS: levETIRAcetam 500 MG TAB PO SCH ×2 (08:40→21:00)
[2017-11-18] MEDS: lamoTRIgine 100 MG TAB PO SCH ×2 (08:40→21:16)
[2017-11-18] MEDS: risperiDONE 1 MG TAB PO SCH (08:40)
[2017-11-18] MEDS: TOPIRAMATE 25 MG TAB PO SCH ×2 (08:40→21:00)
[2017-11-18] MEDS ORDERED: FOLI1TAB6 PO (15:39)
[2017-11-18] MEDS ORDERED: LAMO200T PO (15:39)
[2017-11-18] MEDS ORDERED: TOPI25 PO (15:39)
[2017-11-18] MEDS ORDERED: LEVE500 PO (15:39)
[2017-11-18] MEDS ORDERED: RISP1 PO (15:39)
[2017-11-18] MEDS ORDERED: TRIPOIN TOPICAL (15:39)
--- NOTE | 2017-11-18 15:42 | HHI.DS ---
Psychiatry Discharge Summary Inpatient Psychiatric care?: Yes Advance Directive: No Reason Not Provided: patient refused Mental Health AdvanceDirective: No Health Care Proxy: No Admission Admission Date Nov 13, 2017 at 09:18 Admission Diagnosis: (1) Brief psychotic disorder ICD Code: F23 - Brief psychotic disorder Brief History 32-year-old female [place]ar acted by this physician for current psychotic symptoms , including paranoid delusions, auditory and visual hallucinations, danger to self and danger to others. Patient has been seen in the emergency department several times over the last several days. She has a rené brandi seizure disorder and has experienced some seizures over the last several days as well. However, she presents this morning very obviously psychotic, stating there are people trying to harm her and they are with the government. She is taking food away from [id number] "nylaon" mouth (the son of her boyfriend) claiming it is poisoned. She is obviously responding to internal stimuli at this time. She exhibits significant looseness of associations. Both he and she are indicating she has not had a seizure in the last day or more and no medication changes have been made. The patient's boyfriend cannot care for her and there are children in the home that the patient believes are impostors and therefore the children are at risk of harm. Tobacco Use In Past 30 Days: No Tobacco Past 30 Days Alcohol Use: Never Results Blood Pressure 109 / 66 Vital Signs Date Time Temp Pulse Resp B/P (MAP) Pulse Ox O2 Delivery O2 Flow Rate FiO2 11/18/17 05:52 96.2 99 21 109/66 (80) 100 Laboratory Tests Test 11/17/17 08:20 Creatinine 1.05 MG/DL (0.50-1.00) Aspartate Amino Transf (AST/SGOT) 11 U/L (15-37) Estimat Glomerular Filtration Rate 60 ML/MIN (>89) Laboratory Results Test 11/14/17 08:32 Cholesterol Level 162 MG/DL (120-200) HDL Cholesterol 55.3 MG/DL (40.0-60.0) Hemoglobin A1c 4.9 % (4.3-6.0) LDL Cholesterol 94 MG/DL (0-99) Triglycerides Level 64 MG/DL (42-150) Medications Approp Antipsych med options 1 - Minimum of three failed multiple trials of monotherapy. 2 - Documented plan to taper to monotherapy due to previous use of multiple meds OR cross-taper in progress at D/C. 3 - Documentation of augmentation of Clozapine. 4 - Justification other than those listed in allowable values 1-3, document here : Discharge Pt Condition on Discharge: Stable Discharge Disposition: Discharge Home Discharge Instructions Diet Instructions: As Tolerated, No Restrictions Activities you can perform: Regular-No Restrictions Scheduled Appointment: Tevin [facility] [place] Appointment Date: Nov 20, 2017 Appointment Time: 07:30am Mental Status Examination Appearance: Disheveled Consciousness: Alert Orientation: Person, Place Motor Activity: Normal gait Speech: Hesitant, Other Language: Adequate Fund of Knowledge: Inadequate Attention and Concentration: Inadequate (but improved) Memory: Impaired Mood: Appropriate Affect: Appropriate Thought Process & Associations: Linear, Other (concrete) Thought Content: Hallucinations (denies at this time), Delusional (none today) Hallucination Type: Visual Delusion Type: None Suicidal Ideation: No Suicidal Plan: No Suicidal Intention: No Homicidal Ideation: No Homicidal Plan: No Homicidal Intention: No Insight: Fair Judgment: Impulsive Discharge/Advance Care Plan Health Problems: (1) Brief psychotic disorder Goals to promote your health * To prevent worsening of your condition and complications * To maintain your health at the optimal level Directions to meet your goals Take your medications as prescribed Follow your dietary instruction Follow activity as directed Keep your appointments as scheduled Take your immunizations and boosters as scheduled If your symptoms worsen call your PCP, if no PCP go to Urgent Care Center or Emergency Room For 19/05 questions related to your inpatient stay or results of tests pending at discharge, please contact Dr. Saravanan Guerin at Smoking is Dangerous to Your Health. Avoid second hand smoking Saravanan Guerin MD Nov 18, 2017 15:41
--- NOTE | 2017-11-18 17:47 | HHI.PR ---
Subjective History of Present Illness Patient feel better today . d/w RN at bed side. discharge plan when ok with all. Review of Systems Constitutional Constitutional: Fatigue, Weakness Vitals/Results Intake & Output 11/18/17 11/18/17 11/19/17 15:00 23:00 07:00 Intake Total 120 ml Balance 120 ml Intake Oral 120 ml # Voids 2 Vital Signs Vital Signs Date Time Temp Pulse Resp B/P (MAP) Pulse Ox O2 Delivery O2 Flow Rate FiO2 11/18/17 05:52 96.2 99 21 109/66 (80) 100 11/17/17 18:00 98.4 98 20 155/77 (103) 97 CBC/BMP: 11/17/17 0820 11/17/17 0820 Physical Exam General General Appearance: Well Developed, Well Nourished, No Acute Distress, Comfortable Eyes Eye Exam: Sclera White, Extraocular Movement Intact Throat Throat Exam: Oral Mucosa [place] & Moist, Oral Pharynx Normal Neck Neck Exam: Neck Supple, Trachea Midline Pulmonary Resp Exam: Clear Bilaterally, Breath Sounds Equal, No Distress Cardiology CV Exam: Regular, Normal Sinus Rhythm Gastrointestinal/Abdomen GI Exam: Soft, Non-Tender, Bowel Sounds Present Integumentary Skin Exam: Clear, Warm, Dry, Intact Extremeties Extremities Exam: No Edema Neurologic Neuro Exam: Alert, Awake, Oriented, Speech Clear, Moving All Extremities, No Focal Deficits Psychiatric Psych Exam: Appropriate Responses Assessment/Plan Assessment/Plan Assessment and Plan This is a 33-year-old female with history of seizure disorders who was recently admitted secondary to uncontrolled seizures who left A and was readmitted due to psychosis. Psychosis During previous admission patient was started on Abilify by psychiatry. now on Resperidal 1 mg BID. - Management per psychiatry. Seizure disorder Has not had further seizures. Recent study showed abnormal EEG with seizure activity. CT scan of the brain did not show anything acute. Unable to do MRI of the brain due to vagus nerve stimulator. Neurology consultation appreciated. - Continue with Lamictal and Topamax. Keppra 1000 mg twice a day per neurology. - Outpatient follow-up with neurology. Toe wound Minor wound noted on exam. - Triple antibiotic ointment daily. DVT prophylaxis: ambulation Ok to discharge from medical stand point. Stef Hicks MD Nov 18, 2017 17:47
[2017-11-18 18:12] VITALS: BP 109/66; PULSE 99; RESP 21; TEMP 96.2; O2SAT 100
--- NOTE | 2017-11-18 18:32 | HHI.PYPN ---
Subjective Remarks Patient seen for follow up; chart reviewed. Discussion with nursing staff reported that the patient was noted to be having visual hallucinations of a person down the hallway as well as noted to be religiously preoccupied, praying in the bathroom, praying prior to taking medications and noted to be talking to self at times. Patient was found walking on the unit, requesting to see consumer loan underwriter and when she was attempted to be redirected back to her room she continued to be noted to be confused with difficulty integrating information provided to her. Patient was noted to be paranoid and seen praying in the restroom. She denied any auditory or visual hallucinations but was noted to have delay in response and appearing somewhat internally preoccupied during interview. Patient had family meeting yesterday with boyfriend and two children which went well and boyfriend felt patient was back at baseline. He had come to see her today and stated that the patient was appearing as she did upon initial presentation. Review of Systems Except as stated in HPI: all other systems reviewed are Neg Mental Status Examination Appearance: Appropriate Consciousness: Alert Orientation: Person, Place Motor Activity: Normal gait Speech: Hesitant, Other Language: Adequate Fund of Knowledge: Inadequate Attention and Concentration: Inadequate Memory: Impaired Mood: Anxious Affect: Blunt Thought Process & Associations: Linear, Other (concrete) Thought Content: Hallucinations (denies but appearing to be responding to internal stimuli), Delusional (none today) Hallucination Type: Visual Delusion Type: Paranoid Suicidal Ideation: No Suicidal Plan: No Suicidal Intention: No Homicidal Ideation: No Homicidal Plan: No Homicidal Intention: No Insight: Poor Judgment: Poor Results Vitals/IOs Vital Signs Date Time Temp Pulse Resp B/P (MAP) Pulse Ox O2 Delivery O2 Flow Rate FiO2 11/18/17 18:12 96.2 99 21 109/66 (80) 100 Intake and Output 11/18/17 11/18/17 11/19/17 08:00 16:00 00:00 Intake Total 120 ml 120 ml Balance 120 ml 120 ml Assessment & Plan Problem List: (1) Brief psychotic disorder ICD Codes: F23 - Brief psychotic disorder Assessment & Plan Patient appears to have resumed with internal preoccupation, responding to internal stimuli and although denies perceptual disturbances was noted to have visual hallucination by nurse. Patient was noted to have been improving which boyfriend yesterday had stated patient being back at baseline but was noted with a change in behavior today and not fit for discharge. Unclear whether her symptoms continue to be secondary to ongoing epileptic activity despite being on treatment regimen for seizure disorder. Will increase risperidone to 1mg AM/ 2mg HS for psychosis and continue recommendations as per primary medical team. Discharge planning in progress. Justification for Cont. Inpt. At risk for decompensation at lower level of care. Discharge Planning Back to residence once medically/psychiatrically stable. Saravanan Guerin MD Nov 18, 2017 18:32
[2017-11-18] MEDS ORDERED: risperiDONE 1 MG TAB PO SCH (21:00)
[2017-11-18] MEDS: LORazepam 1 MG TAB PO PRN (21:16)
[2017-11-18] MEDS: diphenhydrAMINE HCL 50 MG CAP PO PRN (21:16)
[2017-11-19 05:57] VITALS: BP 113/63; PULSE 100; RESP 17; TEMP 98; O2SAT 100
[2017-11-19] MEDS: TOPIRAMATE 25 MG TAB PO SCH ×2 (09:00→20:53)
[2017-11-19] MEDS: lamoTRIgine 100 MG TAB PO SCH ×2 (09:00→20:53)
[2017-11-19] MEDS ORDERED: risperiDONE 1 MG TAB PO SCH (09:00)
[2017-11-19] MEDS: FOLIC ACID 1 MG TAB PO SCH (09:00)
[2017-11-19] MEDS: NEOMYCIN/POLYMYXIN/BACITRACIN OINT 15 GM TUBE TOPICAL SCH (09:00)
[2017-11-19] MEDS: levETIRAcetam 500 MG TAB PO SCH (09:00)
--- NOTE | 2017-11-19 13:31 | HHI.PR ---
Subjective History of Present Illness Patient feel better today . d/w RN at bed side. discharge plan was postbone because of patient have hallucination. Review of Systems Constitutional Constitutional: Fatigue, Weakness Vitals/Results Intake & Output 11/19/17 11/19/17 11/20/17 15:00 23:00 07:00 Intake Total 240 ml Balance 240 ml Intake Oral 240 ml Vital Signs Vital Signs Date Time Temp Pulse Resp B/P (MAP) Pulse Ox O2 Delivery O2 Flow Rate FiO2 11/19/17 05:57 98.0 100 17 113/63 (80) 100 11/18/17 18:12 96.2 99 21 109/66 (80) 100 CBC/BMP: 11/17/17 0820 11/17/17 0820 Physical Exam General General Appearance: Well Developed, Well Nourished, No Acute Distress, Comfortable Eyes Eye Exam: Sclera White, Extraocular Movement Intact Throat Throat Exam: Oral Mucosa [place] & Moist, Oral Pharynx Normal Neck Neck Exam: Neck Supple, Trachea Midline Pulmonary Resp Exam: Clear Bilaterally, Breath Sounds Equal, No Distress Cardiology CV Exam: Regular, Normal Sinus Rhythm Gastrointestinal/Abdomen GI Exam: Soft, Non-Tender, Bowel Sounds Present Integumentary Skin Exam: Clear, Warm, Dry, Intact Extremeties Extremities Exam: No Edema Neurologic Neuro Exam: Alert, Awake, Oriented, Speech Clear, Moving All Extremities, No Focal Deficits Psychiatric Psych Exam: Appropriate Responses Assessment/Plan Assessment/Plan Assessment and Plan This is a 33-year-old female with history of seizure disorders who was recently admitted secondary to uncontrolled seizures who left A and was readmitted due to psychosis. Psychosis During previous admission patient was started on Abilify by psychiatry. now on Resperidal 1 mg BID. - Management per psychiatry. Patient was not able to discharge because of Hallucination. Seizure disorder Has not had further seizures. Recent study showed abnormal EEG with seizure activity. CT scan of the brain did not show anything acute. Unable to do MRI of the brain due to vagus nerve stimulator. Neurology consultation appreciated. - Continue with Lamictal and Topamax. Keppra 1000 mg twice a day per neurology. - Outpatient follow-up with neurology. Toe wound Minor wound noted on exam. - Triple antibiotic ointment daily. DVT prophylaxis: ambulation Discussed Condition with: Patient Stef Hicks MD Nov 19, 2017 13:31
--- NOTE | 2017-11-19 14:25 | PD.TTN ---
Patient Problems 1. Discharge planning 2. Medication compliance 3. Knowledge deficit 4. Lack of coping skills Progress Toward Goals Provider Present: Dr. Cindy Guerin Provider Input: 11/19 patient needs to remain and has presented with more hallucinations Psychiatric Counselors Present: Korin Herrera LCSW Psych Therapist Input: 11/19 [address] [place] Act [address] hearing tomorrow and is in need for more stabilization Group Spec/RT/OT/PORTER Present: Sarbjit Leary OT Group Spec/RT/OT/PORTER Input: 11/19 occasionally attends groups - recently cannot tolerate group Korin Herrera LCSW Nov 19, 2017 14:25
[2017-11-19] MEDS ORDERED: HALOPERIDOL LACTATE 5 MG/ML AMP IM ONE (14:30)
[2017-11-19] MEDS ORDERED: LORazepam 2 MG/ML VIAL IM ONE (14:30)
--- NOTE | 2017-11-19 16:44 | HHI.PYPN ---
Subjective Remarks Patient seen for follow-up, chart reviewed. Discussion she staff reported the patient slept last evening noted to be eating well but continue to be noted to have hindu preoccupation and visual hallucinations. Patient was found in relating in the hallway somewhat difficult to redirect back to her room stating that she did to look for her physician and despite reintroducing fiction and nonfiction prose writer patient continued. Patient states she has continue visual hallucinations of shadows coming from outside of her window and noted to have many moments of thought blocking and speech delay looking internally preoccupied. During interview patient was noted to be waving at the wall behind fiction and nonfiction prose writer and talking toward appears to be a visual hallucination. Patient denies any auditory hallucinations patient alert and oriented to person and place only. Patient later was noted to be somewhat restless, walking in the hallway staring at cadet , and having more difficulty for redirection which patient wasn't provided with Haldol 5 mg IM and Ativan 2 mg IM to address current psychotic symptoms. Review of Systems Except as stated in HPI: all other systems reviewed are Neg Mental Status Examination Appearance: Appropriate Consciousness: Alert Orientation: Person, Place Motor Activity: Normal gait Speech: Hesitant, Other Language: Adequate Fund of Knowledge: Inadequate Attention and Concentration: Inadequate Memory: Impaired Mood: Anxious Affect: Blunt Thought Process & Associations: Other (concrete) Thought Content: Hallucinations ( appearing to be responding to internal stimuli , visual hallucinations), Delusional (none today) Hallucination Type: Visual Delusion Type: Paranoid Suicidal Ideation: No Suicidal Plan: No Suicidal Intention: No Homicidal Ideation: No Homicidal Plan: No Homicidal Intention: No Insight: Poor Judgment: Poor Results Vitals/IOs Vital Signs Date Time Temp Pulse Resp B/P (MAP) Pulse Ox O2 Delivery O2 Flow Rate FiO2 11/19/17 05:57 98.0 100 17 113/63 (80) 100 Intake and Output 11/19/17 11/19/17 11/20/17 08:00 16:00 00:00 Intake Total 0 ml 240 ml Balance 0 ml 240 ml Assessment & Plan Problem List: (1) Brief psychotic disorder ICD Codes: F23 - Brief psychotic disorder Assessment & Plan Patient at this time continues to be noted to be responding to visual hallucinations noted to have moments of thought blocking and nonresponsive during these episodes. Patient despite being on antipsychotic regimen continues to have increase frequency of hallucinations, predominantly visual along with hindu preoccupation which appears to be related to her visual hallucinations of hindu figures. EEG was ordered along with labs. Patient was given Haldol 5 mg and Ativan 2 mg IM 1. We'll increase risperidone to 200 g by mouth twice a day for psychosis. Nursing staff communicated with neurologist Dr. De La Torre to recommended stopping Keppra and will follow patient tomorrow. Patient to continue on seizure precautions and neurochecks. We'll discuss possibility of having patient transferred to the [facility] for further neurological workup for epilepsy. It is likely the patient's current hallucinations related to her ongoing seizure activity. Continue recommendations as per primary medical team. Discharge planning in progress. Justification for Cont. Inpt. At risk for further decompensation if at lower level of care Discharge Planning Patient to return back to her residence once medically and psychiatrically stable Saravanan Guerin MD Nov 19, 2017 16:44
[2017-11-19 17:13] LABS: ALBUMIN 4.2 GM/DL (3.4-5.0); BICARBONATE 24.8 MEQ/L (21.0-32.0); CALCIUM 9.2 MG/DL (8.5-10.1); CREATININE 1.1 MG/DL (0.50-1.00)
[2017-11-19 17:14] LABS: DIRECT BILIRUBIN ADULT 0.1 MG/DL (0.0-0.2)
[2017-11-19 17:16] LABS: INDIRECT BILIRUBIN 0.3 MG/DL (0.0-0.8); TOTAL BILIRUBIN ADULT 0.4 MG/DL (0.2-1.0); TOTAL PROTEIN 7.8 GM/DL (6.4-8.2)
[2017-11-19 18:20] VITALS: BP 125/58; PULSE 103; RESP 18; TEMP 97.4; O2SAT 96
--- NOTE | 2017-11-19 19:33 | MG ---
cc: LISANDRO LEONARD M.D. Lab No: Date: 11/19/2017 Age: Sex: F Race: REQUESTING PHYSICIAN Dr. Guerin INTRODUCTION A EEG was obtained on this 32-year-old patient being evaluated for seizures. The patient is awake and asleep. MEDICATIONS Include: 1. Keppra. 2. Risperidone. 3. Topamax. 4. Lamictal. 5. Ativan. DESCRIPTION Previous EEG reports polyspike activity. This study shows low amplitude beta rhythms with theta and delta activity bilaterally. There is associated artifact. There is description of mouth movements, arms in praying position and some lip licking but the EEG is not showing any paroxysmal activity. Photic stimulation showed artifact and possible bilateral driving response. INTERPRETATION This EEG is abnormal because of some generalized slowing but there are no distinct epileptiform features present. There is artifact and some unusual posturing and movements but no ictal pattern present. MD KATHY Arriaza/KK /6:55 PM /7:19 PM
[2017-11-19] MEDS: LORazepam 1 MG TAB PO PRN (20:53)
[2017-11-19] MEDS: diphenhydrAMINE HCL 50 MG CAP PO PRN (20:53)
[2017-11-19] MEDS: risperiDONE 1 MG TAB PO SCH (20:54)
--- NOTE | 2017-11-20 00:39 | EKG ---
Date Performed: 11/19/2017 Time Performed: 16:30:09 PTAGE: 32 years EKG: Sinus rhythm NORMAL ECG PREVIOUS TRACING : 11/14/2017 08.24 Compared to prior tracing, rate has decreased DOCTOR: Lorne Godinez Interpretating Date/Time 11/20/2017 00:38:06
[2017-11-20 05:52] VITALS: BP 108/60; PULSE 98; RESP 18; TEMP 97.9; O2SAT 99
[2017-11-20] MEDS: NEOMYCIN/POLYMYXIN/BACITRACIN OINT 15 GM TUBE TOPICAL SCH (09:00)
[2017-11-20 10:07] LABS: RPR SCREEN FOR REFLEX NON-REACTIVE (NON-REACTVE)
--- NOTE | 2017-11-20 10:51 | HHI.PR ---
Subjective History of Present Illness Patient feel better today . d/w RN at bed side. discharge plan was postbone because of patient have hallucination. Review of Systems Constitutional Constitutional: Fatigue, Weakness Vitals/Results Intake & Output 11/20/17 11/20/17 11/21/17 15:00 23:00 07:00 Intake Total 120 ml Balance 120 ml Intake Oral 120 ml Vital Signs Vital Signs Date Time Temp Pulse Resp B/P (MAP) Pulse Ox O2 Delivery O2 Flow Rate FiO2 11/20/17 05:52 97.9 98 18 108/60 (76) 99 11/19/17 18:20 97.4 103 18 125/58 (80) 96 CBC/BMP: 11/17/17 0820 11/19/17 1645 Lab Results Laboratory Tests Test 11/19/17 16:45 11/20/17 07:10 Blood Urea Nitrogen 13 MG/DL Creatinine 1.10 MG/DL Random Glucose 94 MG/DL Total Protein 7.8 GM/DL Albumin 4.2 GM/DL Calcium Level 9.2 MG/DL Alkaline Phosphatase 85 U/L Aspartate Amino Transf (AST/SGOT) 14 U/L Alanine Aminotransferase (ALT/SGPT) 13 U/L Total Bilirubin 0.4 MG/DL Direct Bilirubin 0.1 MG/DL Sodium Level 136 MEQ/L Potassium Level 3.4 MEQ/L Chloride Level 103 MEQ/L Carbon Dioxide Level 24.8 MEQ/L Anion Gap 8 MEQ/L Estimat Glomerular Filtration Rate 57 ML/MIN Indirect Bilirubin 0.3 MG/DL Total Creatine Kinase 63 U/L Rapid Plasma Reagin NON-REACTIVE Ammonia 14 MCMOL/L Physical Exam General General Appearance: Well Developed, Well Nourished, No Acute Distress, Comfortable Eyes Eye Exam: Sclera White, Extraocular Movement Intact Throat Throat Exam: Oral Mucosa [place] & Moist, Oral Pharynx Normal Neck Neck Exam: Neck Supple, Trachea Midline Pulmonary Resp Exam: Clear Bilaterally, Breath Sounds Equal, No Distress Cardiology CV Exam: Regular, Normal Sinus Rhythm Gastrointestinal/Abdomen GI Exam: Soft, Non-Tender, Bowel Sounds Present Integumentary Skin Exam: Clear, Warm, Dry, Intact Extremeties Extremities Exam: No Edema Neurologic Neuro Exam: Alert, Awake, Oriented, Speech Clear, Moving All Extremities, No Focal Deficits Psychiatric Psych Exam: Appropriate Responses Assessment/Plan Assessment/Plan Assessment and Plan This is a 33-year-old female with history of seizure disorders who was recently admitted secondary to uncontrolled seizures who left AMA and was readmitted due to psychosis. Psychosis During previous admission patient was started on Abilify by psychiatry. now on Resperidal 1 mg BID. - Management per psychiatry. Patient was not able to discharge because of Hallucination. Seizure disorder Has not had further seizures. Recent study showed abnormal EEG with seizure activity. CT scan of the brain did not show anything acute. Unable to do MRI of the brain due to vagus nerve stimulator. Neurology consultation appreciated. - Continue with Lamictal and Topamax. Keppra 1000 mg twice a day per neurology. - Outpatient follow-up with neurology. Toe wound Minor wound noted on exam. - Triple antibiotic ointment daily. DVT prophylaxis: ambulation Stef Hicks MD Nov 20, 2017 10:51
[2017-11-20] MEDS: FOLIC ACID 1 MG TAB PO SCH (11:29)
[2017-11-20] MEDS: lamoTRIgine 100 MG TAB PO SCH ×2 (11:30→21:18)
[2017-11-20] MEDS: risperiDONE 1 MG TAB PO SCH ×2 (11:30→21:18)
[2017-11-20] MEDS: TOPIRAMATE 25 MG TAB PO SCH ×2 (11:30→21:19)
--- NOTE | 2017-11-20 13:45 | HHI.PYPN ---
Subjective Remarks Patient seen for follow-up, chart reviewed. Discussion she staff reported the patient slept well last evening but had a few episodes of staring. Patient was found this morning sitting in hospital chair noted to be slightly more reactive today but continues endorse having visual hallucinations but denying any auditory hallucinations. Patient states that her mood has been "not that great she continues to report wanting to be discharged home. Patient was presented to mental health court today which patient was retained under continuance. Patient has been noted by staff to be having staring spells an some disorganized behavior related to what may be ongoing seizure activity contributing to or behavior. Nutrition Helper recently consulted with neurologist Dr. De La Torre was suggested presenting patient over to the [facility] for inpatient continuous EEG monitoring of her seizures. Review of Systems Except as stated in HPI: all other systems reviewed are Neg Mental Status Examination Appearance: Appropriate Consciousness: Alert Orientation: Person, Place Motor Activity: Normal gait Speech: Hesitant, Other Language: Adequate Fund of Knowledge: Inadequate Attention and Concentration: Inadequate Memory: Impaired Mood: Anxious Affect: Blunt Thought Process & Associations: Other (concrete) Thought Content: Hallucinations ( appearing to be responding to internal stimuli , visual hallucinations), Delusional (none today) Hallucination Type: Visual Delusion Type: Paranoid Suicidal Ideation: No Suicidal Plan: No Suicidal Intention: No Homicidal Ideation: No Homicidal Plan: No Homicidal Intention: No Insight: Poor Judgment: Poor Results Labs Labs reviewed Test 11/19/17 16:45 11/20/17 07:10 Blood Urea Nitrogen 13 MG/DL Creatinine 1.10 MG/DL Random Glucose 94 MG/DL Total Protein 7.8 GM/DL Albumin 4.2 GM/DL Calcium Level 9.2 MG/DL Alkaline Phosphatase 85 U/L Aspartate Amino Transf (AST/SGOT) 14 U/L Alanine Aminotransferase (ALT/SGPT) 13 U/L Total Bilirubin 0.4 MG/DL Direct Bilirubin 0.1 MG/DL Sodium Level 136 MEQ/L Potassium Level 3.4 MEQ/L Chloride Level 103 MEQ/L Carbon Dioxide Level 24.8 MEQ/L Anion Gap 8 MEQ/L Estimat Glomerular Filtration Rate 57 ML/MIN Indirect Bilirubin 0.3 MG/DL Total Creatine Kinase 63 U/L Rapid Plasma Reagin NON-REACTIVE Ammonia 14 MCMOL/L Vitals/IOs Vital Signs Date Time Temp Pulse Resp B/P (MAP) Pulse Ox O2 Delivery O2 Flow Rate FiO2 11/20/17 05:52 97.9 98 18 108/60 (76) 99 Intake and Output 11/20/17 11/20/17 11/21/17 08:00 16:00 00:00 Intake Total 120 ml Balance 120 ml Assessment & Plan Problem List: (1) Brief psychotic disorder ICD Codes: F23 - Brief psychotic disorder Assessment & Plan Patient continues to have visual hallucinations and episodes of staring but noted to be less intense and slightly more reactive during interview. We'll continue current treatment. Will continue recommendations as per neurology consult with Dr. De La Torre. Treatment he will present patient over to the [facility] for acceptance for continuous EEG monitoring as suggested by Dr. De La Torre. If patient's hallucination and disorganized behavior resolved prior to transfer patient possibly may be discharged back to her residence but this seems unlikely given her recent hospital course up to now. We'll continue monitoring Nehal behavior. Continue recognition as per primary medical team. Continue seizure precautions, continue other checks. Discharge planning in progress Justification for Cont. Inpt. At risk for further decompensation if at lower level of care Discharge Planning To be determined Saravanan Guerin MD Nov 20, 2017 13:45
--- NOTE | 2017-11-20 14:03 | HHI.PR ---
Objective Vital Signs Date Time Temp Pulse Resp B/P (MAP) Pulse Ox O2 Delivery O2 Flow Rate FiO2 11/20/17 05:52 97.9 98 18 108/60 (76) 99 11/19/17 18:20 97.4 103 18 125/58 (80) 96 I/O 11/19/17 11/19/17 11/19/17 11/20/17 11/20/17 11/20/17 07:00 15:00 23:00 07:00 15:00 23:00 Intake Total 0 ml 240 ml 240 ml 0 ml 120 ml Balance 0 ml 240 ml 240 ml 0 ml 120 ml Intake Oral 0 ml 240 ml 240 ml 0 ml 120 ml # Voids 0 1 # Bowel Movements 0 Result Diagram: 11/17/17 0820 11/19/17 1645 Objective Remarks in bathroom ox3 no sz no hallucinations today Assessment and Plan Assessment and Plan imp no sz overnoc and no hallucinations today on top and lamicatal i dced keppra in kaveh that causing hallucinations could consider lower dose iin future need shands fu i changed risperdal to hold if no hallucinations Adin De La Torre MD Nov 20, 2017 14:03
[2017-11-20 19:08] VITALS: BP 101/61; PULSE 65; RESP 17; TEMP 99; O2SAT 92
[2017-11-20 19:09] VITALS: BP 154/83; PULSE 101; RESP 19; TEMP 97.5; O2SAT 98
[2017-11-20] MEDS: LORazepam 1 MG TAB PO PRN (21:19)
[2017-11-20] MEDS: diphenhydrAMINE HCL 50 MG CAP PO PRN (21:19)
[2017-11-21 05:58] VITALS: BP 108/53; PULSE 100; RESP 20; TEMP 97.7; O2SAT 99
[2017-11-21 07:49] LABS: BASOPHIL % 0.6 % (0.0-2.0); EOSINOPHIL # 0.1 TH/MM3 (0-0.4); EOSINOPHIL % 1.1 % (0.0-4.0); HEMATOCRIT 28.9 % (35.0-46.0); HEMOGLOBIN 9.8 GM/DL (11.6-15.3); LYMPH % 24.1 % (9.0-44.0); LYMPHOCYTE # 1.8 TH/MM3 (1.0-4.8); MEAN CELL VOLUME 80.4 FL (80.0-100.0); MEAN CORPUSCULAR HEMOGLOBIN 27.3 PG (27.0-34.0); MEAN PLATELET VOLUME 7.8 FL (7.0-11.0); MONO % 8.1 % (0.0-8.0); MONOCYTE # 0.6 TH/MM3 (0-0.9); NEUT % 66.1 % (16.0-70.0); PLATELET COUNT 252 TH/MM3 (150-450); WHITE BLOOD COUNT 7.6 TH/MM3 (4.0-11.0)
--- NOTE | 2017-11-21 07:52 | HHI.PYPN ---
Subjective Remarks Patient seen for follow-up, chart reviewed. Discussion she staff reported the patient continues to have some bizarre behavior but not noted to be overtly hallucinating as days prior or attempting to elope. Patient was found lying in hospital bed, cooperative patient states that she had a good night sleep noted to be more reactive not noted to be internally preoccupied or hallucinating at time of interview. Patient states that her mood has been "fine" was not aware that she was seen by Dr. De La Torre neurologist yesterday. During interview and Dr. De La Torre joined the interview the patient denied any seizures since his last visit. Review of Systems Except as stated in HPI: all other systems reviewed are Neg Mental Status Examination Appearance: Appropriate Consciousness: Alert Orientation: Person, Place Motor Activity: Normal gait Speech: Hesitant, Other Language: Adequate Fund of Knowledge: Inadequate Attention and Concentration: Inadequate Memory: Impaired Mood: Appropriate Affect: Blunt Thought Process & Associations: Other (concrete) Thought Content: Hallucinations (denies today), Delusional (none today) Hallucination Type: Visual (denies today) Delusion Type: None Suicidal Ideation: No Suicidal Plan: No Suicidal Intention: No Homicidal Ideation: No Homicidal Plan: No Homicidal Intention: No Insight: Poor Judgment: Poor Results Labs Test 11/21/17 06:37 Vitals/IOs Vital Signs Date Time Temp Pulse Resp B/P (MAP) Pulse Ox O2 Delivery O2 Flow Rate FiO2 11/21/17 05:58 97.7 100 20 108/53 (71) 99 Intake and Output 11/21/17 11/21/17 11/22/17 08:00 16:00 00:00 Intake Total 120 ml Balance 120 ml Assessment & Plan Problem List: (1) Brief psychotic disorder ICD Codes: F23 - Brief psychotic disorder Assessment & Plan Patient this time noted to have improvement which patient has not had any further overt hallucinations or internal preoccupation and noted today to be more reactive and engaging in interview. Discussion with Dr. De La Torre had recommended patient to be transferred to the [facility] on Friday for further neurological workup once psychiatrically cleared. Continue current treatment. Continue monitor mood and behavior. Discharge planning in progress Justification for Cont. Inpt. At risk for further decompensation if at lower level of care Discharge Planning Patient to be transferred to the [facility] on Friday for continued neurological workup. Saravanan Guerin MD Nov 21, 2017 07:52
--- NOTE | 2017-11-21 07:52 | HHI.PR ---
Subjective Remarks mood steady and even this am Objective Vital Signs Date Time Temp Pulse Resp B/P (MAP) Pulse Ox O2 Delivery O2 Flow Rate FiO2 11/21/17 05:58 97.7 100 20 108/53 (71) 99 11/20/17 19:09 97.5 101 19 154/83 (106) 98 11/20/17 19:08 99.0 65 17 101/61 (74) 92 I/O 11/20/17 11/20/17 11/20/17 11/21/17 11/21/17 11/21/17 07:00 15:00 23:00 07:00 15:00 23:00 Intake Total 0 ml 360 ml 360 ml 120 ml Balance 0 ml 360 ml 360 ml 120 ml Intake Oral 0 ml 360 ml 360 ml 120 ml # Voids 1 4 4 # Bowel Movements 0 Result Diagram: 11/21/17 0637 11/19/17 1645 Objective Remarks awake alert seems coherent and reasonable Assessment and Plan Assessment and Plan imp no sz overnoc and no hallucinations today on top and lamicatal i dced keppra in kaveh that causing hallucinations could consider lower dose iin future need jessica schneider i changed risperdal to hold if no hallucinations 11/21/17 some hallucinations yest afternoon off keppra still no clinical sz jessica said they could take her next week and nursing should call friday if psych can verify not a harm to herself or others Adin De La Torre MD Nov 21, 2017 07:52
[2017-11-21 08:58] LABS: ALBUMIN 3.4 GM/DL (3.4-5.0); ALKALINE PHOSPHATASE 76 U/L (45-117); ALT (GPT) 16 U/L (10-53); AST (GOT) 19 U/L (15-37); BICARBONATE 25.7 MEQ/L (21.0-32.0); BLOOD UREA NITROGEN 12 MG/DL (7-18); CALCIUM 8.4 MG/DL (8.5-10.1); CHLORIDE 105 MEQ/L (98-107); CREATININE 0.93 MG/DL (0.50-1.00); GLOMERULAR FILTRATION RATE 69 ML/MIN (>89); GLUCOSE,RANDOM 75 MG/DL (74-106); SODIUM (NA) 139 MEQ/L (136-145); TOTAL BILIRUBIN ADULT 0.3 MG/DL (0.2-1.0); TOTAL PROTEIN 6.7 GM/DL (6.4-8.2)
[2017-11-21] MEDS: NEOMYCIN/POLYMYXIN/BACITRACIN OINT 15 GM TUBE TOPICAL SCH (09:00)
[2017-11-21] MEDS: lamoTRIgine 100 MG TAB PO SCH ×2 (09:44→20:32)
[2017-11-21] MEDS: FOLIC ACID 1 MG TAB PO SCH (09:45)
[2017-11-21] MEDS: TOPIRAMATE 25 MG TAB PO SCH ×2 (09:45→20:32)
[2017-11-21] MEDS: risperiDONE 1 MG TAB PO SCH ×2 (09:45→20:32)
--- NOTE | 2017-11-21 11:43 | HHI.PR ---
Subjective History of Present Illness Patient feel better today . d/w RN at bed side. discharge plan when ok with psych no acute issue. Review of Systems Constitutional Constitutional: Fatigue, Weakness Vitals/Results Intake & Output 11/21/17 11/21/17 11/22/17 15:00 23:00 07:00 Intake Total 120 ml Balance 120 ml Intake Oral 120 ml Vital Signs Vital Signs Date Time Temp Pulse Resp B/P (MAP) Pulse Ox O2 Delivery O2 Flow Rate FiO2 11/21/17 05:58 97.7 100 20 108/53 (71) 99 11/20/17 19:09 97.5 101 19 154/83 (106) 98 11/20/17 19:08 99.0 65 17 101/61 (74) 92 CBC/BMP: 11/21/17 0637 11/21/17 0637 Lab Results Laboratory Tests Test 11/21/17 06:37 White Blood Count 7.6 TH/MM3 Red Blood Count 3.60 MIL/MM3 Hemoglobin 9.8 GM/DL Hematocrit 28.9 % Mean Corpuscular Volume 80.4 FL Mean Corpuscular Hemoglobin 27.3 PG Mean Corpuscular Hemoglobin Concent 34.0 % Red Cell Distribution Width 16.0 % Platelet Count 252 TH/MM3 Mean Platelet Volume 7.8 FL Neutrophils (%) (Auto) 66.1 % Lymphocytes (%) (Auto) 24.1 % Monocytes (%) (Auto) 8.1 % Eosinophils (%) (Auto) 1.1 % Basophils (%) (Auto) 0.6 % Neutrophils # (Auto) 5.0 TH/MM3 Lymphocytes # (Auto) 1.8 TH/MM3 Monocytes # (Auto) 0.6 TH/MM3 Eosinophils # (Auto) 0.1 TH/MM3 Basophils # (Auto) 0.0 TH/MM3 CBC Comment DIFF FINAL Differential Comment Blood Urea Nitrogen 12 MG/DL Creatinine 0.93 MG/DL Random Glucose 75 MG/DL Total Protein 6.7 GM/DL Albumin 3.4 GM/DL Calcium Level 8.4 MG/DL Alkaline Phosphatase 76 U/L Aspartate Amino Transf (AST/SGOT) 19 U/L Alanine Aminotransferase (ALT/SGPT) 16 U/L Total Bilirubin 0.3 MG/DL Sodium Level 139 MEQ/L Potassium Level 3.1 MEQ/L Chloride Level 105 MEQ/L Carbon Dioxide Level 25.7 MEQ/L Anion Gap 8 MEQ/L Estimat Glomerular Filtration Rate 69 ML/MIN Physical Exam General General Appearance: Well Developed, Well Nourished, No Acute Distress, Comfortable Eyes Eye Exam: Sclera White, Extraocular Movement Intact Throat Throat Exam: Oral Mucosa [place] & Moist, Oral Pharynx Normal Neck Neck Exam: Neck Supple, Trachea Midline Pulmonary Resp Exam: Clear Bilaterally, Breath Sounds Equal, No Distress Cardiology CV Exam: Regular, Normal Sinus Rhythm Gastrointestinal/Abdomen GI Exam: Soft, Non-Tender, Bowel Sounds Present Integumentary Skin Exam: Clear, Warm, Dry, Intact Extremeties Extremities Exam: No Edema Neurologic Neuro Exam: Alert, Awake, Oriented, Speech Clear, Moving All Extremities, No Focal Deficits Psychiatric Psych Exam: Appropriate Responses Assessment/Plan Assessment/Plan Assessment and Plan This is a 33-year-old female with history of seizure disorders who was recently admitted secondary to uncontrolled seizures who left AMA and was readmitted due to psychosis. Psychosis During previous admission patient was started on Abilify by psychiatry. now on Resperidal 1 mg BID. - Management per psychiatry. Patient was not able to discharge because of Hallucination. Seizure disorder Has not had further seizures. Recent study showed abnormal EEG with seizure activity. CT scan of the brain did not show anything acute. Unable to do MRI of the brain due to vagus nerve stimulator. Neurology consultation appreciated. - Continue with Lamictal and Topamax. Keppra 1000 mg twice a day per neurology. - Outpatient follow-up with neurology. Toe wound Minor wound noted on exam. - Triple antibiotic ointment daily. DVT prophylaxis: ambulation Discussed Condition with: Patient Stef Hicks MD Nov 21, 2017 11:43
[2017-11-21 18:35] VITALS: BP 114/56; PULSE 102; RESP 20; TEMP 98; O2SAT 99
[2017-11-21] MEDS: LORazepam 1 MG TAB PO PRN (20:32)
[2017-11-21] MEDS: diphenhydrAMINE HCL 50 MG CAP PO PRN (21:30)
[2017-11-22 05:51] VITALS: BP 88/54; PULSE 99; RESP 16; TEMP 97.9; O2SAT 99
--- NOTE | 2017-11-22 07:53 | HHI.PYPN ---
Subjective Remarks Patient seen in her room with nurse Courtney, chart reviewed, patient compliant medication. The times need some encouragement. Patient laying quietly in her bed. She is calm cooperative with me she denies any voices or visions at the present time. She does acknowledge past history of seizures it appears she does not have any significant prodromal symptoms related to her seizures. For now continue treatment Review of Systems Except as stated in HPI: all other systems reviewed are Neg Mental Status Examination Appearance: Appropriate Consciousness: Alert Orientation: Person, Place Motor Activity: Normal gait Speech: Hesitant, Other Language: Adequate Fund of Knowledge: Inadequate Attention and Concentration: Inadequate Memory: Impaired Mood: Appropriate Affect: Blunt Thought Process & Associations: Other (concrete) Thought Content: Hallucinations (denies today), Delusional (none today) Hallucination Type: Visual (denies today) Delusion Type: None Suicidal Ideation: No Suicidal Plan: No Suicidal Intention: No Homicidal Ideation: No Homicidal Plan: No Homicidal Intention: No Insight: Poor Judgment: Poor Results Vitals/IOs Vital Signs Date Time Temp Pulse Resp B/P (MAP) Pulse Ox O2 Delivery O2 Flow Rate FiO2 11/22/17 05:51 97.9 99 16 88/54 (65) 99 Intake and Output 11/22/17 11/22/17 11/23/17 08:00 16:00 00:00 Intake Total 240 ml Balance 240 ml Assessment & Plan Problem List: (1) Brief psychotic disorder ICD Codes: F23 - Brief psychotic disorder Assessment & Plan Estimated LOS: days patient psychosis appears to be resolving. She is compliant with medications with encouragement. Appears with no seizures in the recent past. For now continue treatment Justification for Cont. Inpt. At this time patient will decompensate a placed a lower level of care. It appears to plan for possible transfer to [facility] for further neurological evaluation on Friday 11/24 Discharge Planning Possible transfer to [facility] first part next week perhaps on 11/24 Stanley Alonso MD Nov 22, 2017 07:53
[2017-11-22] MEDS: TOPIRAMATE 25 MG TAB PO SCH ×2 (09:00→21:48)
[2017-11-22] MEDS: NEOMYCIN/POLYMYXIN/BACITRACIN OINT 15 GM TUBE TOPICAL SCH (09:00)
[2017-11-22 09:15] VITALS: BP 130/57
[2017-11-22] MEDS: FOLIC ACID 1 MG TAB PO SCH (09:30)
[2017-11-22] MEDS: risperiDONE 1 MG TAB PO SCH ×2 (09:30→20:30)
[2017-11-22] MEDS: lamoTRIgine 100 MG TAB PO SCH ×2 (09:31→20:30)
--- NOTE | 2017-11-22 14:10 | HHI.PR ---
Subjective History of Present Illness Patient feel better today . d/w RN at bed side. Review of Systems Constitutional Constitutional: Fatigue, Weakness Vitals/Results Intake & Output 11/22/17 11/22/17 11/23/17 15:00 23:00 07:00 Intake Total 60 ml Balance 60 ml Intake Oral 60 ml Vital Signs Vital Signs Date Time Temp Pulse Resp B/P (MAP) Pulse Ox O2 Delivery O2 Flow Rate FiO2 11/22/17 05:51 97.9 99 16 88/54 (65) 99 11/21/17 18:35 98.0 102 20 114/56 (75) 99 CBC/BMP: 11/21/17 0637 11/21/17 0637 Physical Exam General General Appearance: Well Developed, Well Nourished, No Acute Distress, Comfortable Eyes Eye Exam: Sclera White, Extraocular Movement Intact Throat Throat Exam: Oral Mucosa [place] & Moist, Oral Pharynx Normal Neck Neck Exam: Neck Supple, Trachea Midline Pulmonary Resp Exam: Clear Bilaterally, Breath Sounds Equal, No Distress Cardiology CV Exam: Regular, Normal Sinus Rhythm Gastrointestinal/Abdomen GI Exam: Soft, Non-Tender, Bowel Sounds Present Integumentary Skin Exam: Clear, Warm, Dry, Intact Extremeties Extremities Exam: No Edema Neurologic Neuro Exam: Alert, Awake, Oriented, Speech Clear, Moving All Extremities, No Focal Deficits Psychiatric Psych Exam: Appropriate Responses Assessment/Plan Assessment/Plan Assessment and Plan This is a 33-year-old female with history of seizure disorders who was recently admitted secondary to uncontrolled seizures who left AMA and was readmitted due to psychosis. Psychosis During previous admission patient was started on Abilify by psychiatry. now on Resperidal 1 mg BID. - Management per psychiatry. Patient was not able to discharge because of Hallucination. Seizure disorder Has not had further seizures. Recent study showed abnormal EEG with seizure activity. CT scan of the brain did not show anything acute. Unable to do MRI of the brain due to vagus nerve stimulator. Neurology consultation appreciated. - Continue with Lamictal and Topamax. Keppra 1000 mg twice a day per neurology. - Outpatient follow-up with neurology. Toe wound Minor wound noted on exam. - Triple antibiotic ointment daily. DVT prophylaxis: ambulation Stef Hicks MD Nov 22, 2017 14:10
[2017-11-22] MEDS: diphenhydrAMINE HCL 50 MG CAP PO PRN (20:30)
[2017-11-22] MEDS: LORazepam 1 MG TAB PO PRN (20:30)
[2017-11-23 06:19] VITALS: BP 120/53; PULSE 100; RESP 16; TEMP 98.2; O2SAT 100
--- NOTE | 2017-11-23 07:50 | HHI.PYPN ---
Subjective Remarks Patient seen in her room floor staff, it appears patient had a good night she slept all night without difficulty, chart reviewed, patient compliant medications. Patient denies voices denies suicidality. Review of Systems Except as stated in HPI: all other systems reviewed are Neg Mental Status Examination Appearance: Appropriate Consciousness: Alert Orientation: Person, Place Motor Activity: Normal gait Speech: Hesitant, Other Language: Adequate Fund of Knowledge: Inadequate Attention and Concentration: Inadequate Memory: Impaired Mood: Appropriate Affect: Blunt Thought Process & Associations: Other (concrete) Thought Content: Hallucinations (denies today), Delusional (none today) Hallucination Type: Visual (denies today) Delusion Type: None Suicidal Ideation: No Suicidal Plan: No Suicidal Intention: No Homicidal Ideation: No Homicidal Plan: No Homicidal Intention: No Insight: Poor Judgment: Poor Results Vitals/IOs Vital Signs Date Time Temp Pulse Resp B/P (MAP) Pulse Ox O2 Delivery O2 Flow Rate FiO2 11/23/17 06:19 98.2 100 16 120/53 (75) 100 Intake and Output 11/23/17 11/23/17 11/24/17 08:00 16:00 00:00 Intake Total 120 ml Balance 120 ml Assessment & Plan Problem List: (1) Brief psychotic disorder ICD Codes: F23 - Brief psychotic disorder Assessment & Plan Estimated LOS: days patient calm cooperative had a good night slept well no seizure activity noted Justification for Cont. Inpt. At this time patient may decompensate if not placed in an appropriate level of care Discharge Planning To be determined Stanley Alonso MD Nov 23, 2017 07:50
[2017-11-23] MEDS: NEOMYCIN/POLYMYXIN/BACITRACIN OINT 15 GM TUBE TOPICAL SCH (09:00)
[2017-11-23] MEDS: FOLIC ACID 1 MG TAB PO SCH (09:42)
[2017-11-23] MEDS: TOPIRAMATE 25 MG TAB PO SCH ×2 (09:42→21:40)
[2017-11-23] MEDS: risperiDONE 1 MG TAB PO SCH ×2 (09:42→21:40)
[2017-11-23] MEDS: lamoTRIgine 100 MG TAB PO SCH ×2 (09:42→21:41)
--- NOTE | 2017-11-23 12:42 | HHI.PR ---
Subjective History of Present Illness Patient feel better today awake alert and orianted. . d/w RN at bed side. still hallucinating Review of Systems Constitutional Constitutional: Fatigue, Weakness Vitals/Results Intake & Output 11/23/17 11/23/17 11/24/17 15:00 23:00 07:00 Intake Total 240 ml Balance 240 ml Intake Oral 240 ml Vital Signs Vital Signs Date Time Temp Pulse Resp B/P (MAP) Pulse Ox O2 Delivery O2 Flow Rate FiO2 11/23/17 06:19 98.2 100 16 120/53 (75) 100 CBC/BMP: 11/21/17 0637 11/21/17 0637 Physical Exam General General Appearance: Well Developed, Well Nourished, No Acute Distress, Comfortable Eyes Eye Exam: Sclera White, Extraocular Movement Intact Throat Throat Exam: Oral Mucosa [place] & Moist, Oral Pharynx Normal Neck Neck Exam: Neck Supple, Trachea Midline Pulmonary Resp Exam: Clear Bilaterally, Breath Sounds Equal, No Distress Cardiology CV Exam: Regular, Normal Sinus Rhythm Gastrointestinal/Abdomen GI Exam: Soft, Non-Tender, Bowel Sounds Present Integumentary Skin Exam: Clear, Warm, Dry, Intact Extremeties Extremities Exam: No Edema Neurologic Neuro Exam: Alert, Awake, Oriented, Speech Clear, Moving All Extremities, No Focal Deficits Psychiatric Psych Exam: Appropriate Responses Assessment/Plan Assessment/Plan Assessment and Plan This is a 33-year-old female with history of seizure disorders who was recently admitted secondary to uncontrolled seizures who left AMA and was readmitted due to psychosis. Psychosis During previous admission patient was started on Abilify by psychiatry. now on Resperidal 1 mg BID. - Management per psychiatry. Patient was not able to discharge because of Hallucination. Seizure disorder Has not had further seizures. Recent study showed abnormal EEG with seizure activity. CT scan of the brain did not show anything acute. Unable to do MRI of the brain due to vagus nerve stimulator. Neurology consultation appreciated. - Continue with Lamictal and Topamax. Keppra 1000 mg twice a day per neurology. - Outpatient follow-up with neurology. Toe wound Minor wound noted on exam. - Triple antibiotic ointment daily. DVT prophylaxis: ambulation Discussed Condition with: Patient Stef Hicks MD Nov 23, 2017 12:42
[2017-11-23 16:09] VITALS: BP 116/70; PULSE 96; RESP 16; TEMP 97.9; O2SAT 99
[2017-11-23] MEDS: diphenhydrAMINE HCL 50 MG CAP PO PRN (21:40)
[2017-11-23] MEDS: LORazepam 1 MG TAB PO PRN (21:40)
[2017-11-24 06:00] VITALS: BP 93/44; PULSE 81; RESP 16; TEMP 98.1; O2SAT 98
[2017-11-24] MEDS: NEOMYCIN/POLYMYXIN/BACITRACIN OINT 15 GM TUBE TOPICAL SCH (09:00)
--- NOTE | 2017-11-24 09:20 | HHI.PR ---
Subjective History of Present Illness Patient feel better today awake alert and orianted. . d/w RN at bed side. still hallucinating Review of Systems Constitutional Constitutional: Fatigue, Weakness Vitals/Results Intake & Output 11/24/17 11/24/17 11/25/17 15:00 23:00 07:00 Intake Total 240 ml Balance 240 ml Intake Oral 240 ml Vital Signs Vital Signs Date Time Temp Pulse Resp B/P (MAP) Pulse Ox O2 Delivery O2 Flow Rate FiO2 11/24/17 06:00 98.1 81 16 93/44 (60) 98 11/23/17 16:09 97.9 96 16 116/70 (85) 99 CBC/BMP: 11/21/17 0637 11/21/17 0637 Physical Exam General General Appearance: Well Developed, Well Nourished, No Acute Distress, Comfortable Eyes Eye Exam: Sclera White, Extraocular Movement Intact Throat Throat Exam: Oral Mucosa [place] & Moist, Oral Pharynx Normal Neck Neck Exam: Neck Supple, Trachea Midline Pulmonary Resp Exam: Clear Bilaterally, Breath Sounds Equal, No Distress Cardiology CV Exam: Regular, Normal Sinus Rhythm Gastrointestinal/Abdomen GI Exam: Soft, Non-Tender, Bowel Sounds Present Integumentary Skin Exam: Clear, Warm, Dry, Intact Extremeties Extremities Exam: No Edema Neurologic Neuro Exam: Alert, Awake, Oriented, Speech Clear, Moving All Extremities, No Focal Deficits Psychiatric Psych Exam: Appropriate Responses Assessment/Plan Assessment/Plan Assessment and Plan This is a 33-year-old female with history of seizure disorders who was recently admitted secondary to uncontrolled seizures who left A and was readmitted due to psychosis. Psychosis During previous admission patient was started on Abilify by psychiatry. now on Resperidal 1 mg BID. - Management per psychiatry. Patient was not able to discharge because of Hallucination. Seizure disorder Has not had further seizures. Recent study showed abnormal EEG with seizure activity. CT scan of the brain did not show anything acute. Unable to do MRI of the brain due to vagus nerve stimulator. Neurology consultation appreciated. - Continue with Lamictal and Topamax. Keppra 1000 mg twice a day per neurology. - Outpatient follow-up with neurology. Toe wound Minor wound noted on exam. - Triple antibiotic ointment daily. DVT prophylaxis: ambulation Stef Hicks MD Nov 24, 2017 09:20
--- NOTE | 2017-11-24 09:43 | HHI.PR ---
Subjective Remarks a little hard to wake up this am Objective Vital Signs Date Time Temp Pulse Resp B/P (MAP) Pulse Ox O2 Delivery O2 Flow Rate FiO2 11/24/17 06:00 98.1 81 16 93/44 (60) 98 11/23/17 16:09 97.9 96 16 116/70 (85) 99 I/O 11/23/17 11/23/17 11/23/17 11/24/17 11/24/17 11/24/17 07:00 15:00 23:00 07:00 15:00 23:00 Intake Total 120 ml 480 ml 240 ml 240 ml 240 ml Balance 120 ml 480 ml 240 ml 240 ml 240 ml Intake Oral 120 ml 480 ml 240 ml 240 ml 240 ml # Voids 1 2 2 Result Diagram: 11/21/1763611/21/17636 Objective Remarks little hard to awaken but does then falls back to sleeep Assessment and Plan Assessment and Plan imp no sz overnoc and no hallucinations today on top and lamicatal i dced keppra in kaveh that causing hallucinations could consider lower dose iin future need jessica schneider i changed risperdal to hold if no hallucinations 11/21/17 some hallucinations yest afternoon off keppra still no clinical sz jessica said they could take her next week and nursing should call friday if psych can verify not a harm to herself or others 11/24/17 no sz overweekend witnessed hallucinations better some heavy praying i dw psych no danger to herself or others they feel try and get transfer to Adin Prajapati MD Nov 24, 2017 09:43
[2017-11-24] MEDS: TOPIRAMATE 25 MG TAB PO SCH ×2 (10:21→20:42)
[2017-11-24] MEDS: risperiDONE 1 MG TAB PO SCH ×2 (10:21→20:42)
[2017-11-24] MEDS: FOLIC ACID 1 MG TAB PO SCH (10:21)
[2017-11-24] MEDS: lamoTRIgine 100 MG TAB PO SCH ×2 (10:21→20:42)
--- NOTE | 2017-11-24 11:45 | HHI.PYPN ---
Subjective Remarks Patient seen for follow-up, chart reviewed. Discussion she staff reported the patient slept well last night but yesterday was noted to be praying a lot. Patient found lying in hospital bed, cooperative today. Patient denies any recent visual auditory hallucinations study feeling rested. Patient reports having visited by her family over the weekend which she states went well. Patient was seen by neurology databases computer consultant Dr. De La Torre states that patient may be transferred to the [facility] for further evaluation and management of seizures. Patient aware of this plan and agrees. Review of Systems Except as stated in HPI: all other systems reviewed are Neg Mental Status Examination Appearance: Appropriate Consciousness: Alert Orientation: Person, Place Motor Activity: Normal gait Speech: Hesitant, Other Language: Adequate Fund of Knowledge: Inadequate Attention and Concentration: Inadequate Memory: Impaired Mood: Appropriate Affect: Blunt Thought Process & Associations: Other (concrete) Thought Content: Appropriate, Hallucinations (denies today) Hallucination Type: None Delusion Type: None Suicidal Ideation: No Suicidal Plan: No Suicidal Intention: No Homicidal Ideation: No Homicidal Plan: No Homicidal Intention: No Insight: Fair Judgment: Impulsive Results Vitals/IOs Vital Signs Date Time Temp Pulse Resp B/P (MAP) Pulse Ox O2 Delivery O2 Flow Rate FiO2 11/24/17 06:00 98.1 81 16 93/44 (60) 98 Intake and Output 11/24/17 11/24/17 11/25/17 08:00 16:00 00:00 Intake Total 240 ml 240 ml Balance 240 ml 240 ml Assessment & Plan Problem List: (1) Brief psychotic disorder ICD Codes: F23 - Brief psychotic disorder Assessment & Plan Patient at this time has not had any further episodes of active hallucinations although noted to be somewhat religiously preoccupied recently but currently not a danger to self or others at this time is observed here on the unit. Patient has been observed to perform basic ADLs without any difficulty. Patient 's recent hallucinations likely secondary to either recent addition of Keppra or secondary to ongoing seizure activity. It is unlikely the patient's current perceptual services are secondary to her primary psychiatric illness this patient has no prior psychiatric history and transferred to present in the context of treatment resistant seizure disorder. We'll coordinate transfer of patient to the [facility] as recommended by Dr. Walden. Continue current treatment. Discharge planning in progress Justification for Cont. Inpt. At risk for further decompensation if at lower level of care Discharge Planning Patient to be transferred to the [facility] Saravanan Guerin MD Nov 24, 2017 11:45
[2017-11-24 17:45] VITALS: BP 120/76; PULSE 101; RESP 17; TEMP 97.5; O2SAT 99
[2017-11-25 05:51] VITALS: BP 133/68; PULSE 98; RESP 18; TEMP 97.8; O2SAT 99
--- NOTE | 2017-11-25 08:19 | HHI.PYPN ---
Subjective Remarks Patient seen for follow-up, chart reviewed. Discussion she staff reported patient having become slightly paranoid yesterday due to another patient screaming at night which disturbed unit. Patient was able to sleep. Patient found in hospital bed, cooperative sitting up having breakfast. Patient states that she slept well despite having the patient next door screaming throughout the night. Patient denies any auditory or visual hallucinations. Patient denies any delusions at this time. Patient noted to be more reactive and organized and thought process during interview. Patient aware that she is waiting for availability at the [facility] for 23 hour observation of continuous EEG which she states has had done in the past. Patient also notified of the possibility of unavailability at this facility and alternatively will be discharged back home to await notice from this facility availability. Patient denies any SI, HI, AVH or delusions at this time. Review of Systems Except as stated in HPI: all other systems reviewed are Neg Mental Status Examination Appearance: Appropriate Consciousness: Alert Orientation: Person, Place Motor Activity: Normal gait Speech: Unremarkable, Other Language: Adequate Fund of Knowledge: Inadequate Attention and Concentration: Adequate Memory: Impaired Mood: Appropriate Affect: Blunt Thought Process & Associations: Linear Thought Content: Appropriate Hallucination Type: None Delusion Type: None Suicidal Ideation: No Suicidal Plan: No Suicidal Intention: No Homicidal Ideation: No Homicidal Plan: No Homicidal Intention: No Insight: Fair Judgment: Impulsive Results Labs Test 11/25/17 07:33 Vitals/IOs Vital Signs Date Time Temp Pulse Resp B/P (MAP) Pulse Ox O2 Delivery O2 Flow Rate FiO2 11/25/17 05:51 97.8 98 18 133/68 (89) 99 Intake and Output 11/25/17 11/25/17 11/26/17 08:00 16:00 00:00 Intake Total 0 ml Balance 0 ml Assessment & Plan Problem List: (1) Brief psychotic disorder ICD Codes: F23 - Brief psychotic disorder Assessment & Plan Patient at this time noted to have more organized thought process is reactive and engaging in interview with on noted to her preoccupations or response to internal stimuli. Patient without any perceptual disturbances or delusions at this time. Continue current treatment. Patient will await this morning to find out availability to be transferred to the [facility] for further neurological workup but if unavailable patient will be discharged home and await availability. Continue recommendations as per primary medical team, neurology consult appreciated. Discharge planning in progress Justification for Cont. Inpt. At risk for decompensation at lower level of care Discharge Planning To be determined. Saravanan Guerin MD Nov 25, 2017 08:19
[2017-11-25 08:20] LABS: AUTOMATED NEUTROPHIL # 4.7 TH/MM3 (1.8-7.7); BASOPHIL % 0.7 % (0.0-2.0); EOSINOPHIL # 0.1 TH/MM3 (0-0.4); HEMATOCRIT 35.2 % (35.0-46.0); HEMOGLOBIN 11.6 GM/DL (11.6-15.3); LYMPH % 22.4 % (9.0-44.0); LYMPHOCYTE # 1.5 TH/MM3 (1.0-4.8); MEAN CORPUSCULAR HEMOGLOBIN 26.7 PG (27.0-34.0); MEAN CORPUSCULAR HGB CONC 32.9 % (32.0-36.0); MEAN PLATELET VOLUME 7.5 FL (7.0-11.0); MONOCYTE # 0.5 TH/MM3 (0-0.9); NEUT % 68.9 % (16.0-70.0); PLATELET COUNT 325 TH/MM3 (150-450); RED BLOOD COUNT 4.35 MIL/MM3 (4.00-5.30); RED CELL DISTRIBUTION WIDTH 16.3 % (11.6-17.2); WHITE BLOOD COUNT 6.9 TH/MM3 (4.0-11.0)
[2017-11-25 08:46] LABS: ALT (GPT) 15 U/L (10-53); AST (GOT) 16 U/L (15-37); BICARBONATE 26.8 MEQ/L (21.0-32.0); BLOOD UREA NITROGEN 8 MG/DL (7-18); CALCIUM 9.4 MG/DL (8.5-10.1); CHLORIDE 104 MEQ/L (98-107); CREATININE 1.02 MG/DL (0.50-1.00); GLOMERULAR FILTRATION RATE 62 ML/MIN (>89); GLUCOSE,RANDOM 96 MG/DL (74-106); SODIUM (NA) 138 MEQ/L (136-145)
[2017-11-25 08:48] LABS: ALKALINE PHOSPHATASE 95 U/L (45-117); TOTAL BILIRUBIN ADULT 0.3 MG/DL (0.2-1.0); TOTAL PROTEIN 7.8 GM/DL (6.4-8.2)
[2017-11-25] MEDS: NEOMYCIN/POLYMYXIN/BACITRACIN OINT 15 GM TUBE TOPICAL SCH (09:00)
[2017-11-25] MEDS: FOLIC ACID 1 MG TAB PO SCH (09:00)
[2017-11-25] MEDS: risperiDONE 1 MG TAB PO SCH ×2 (09:06→20:29)
[2017-11-25] MEDS: lamoTRIgine 100 MG TAB PO SCH ×2 (09:06→20:29)
[2017-11-25] MEDS: TOPIRAMATE 25 MG TAB PO SCH ×2 (09:06→20:29)
[2017-11-25] MEDS ORDERED: RISP2TAB2 PO (09:17)
--- NOTE | 2017-11-25 09:28 | PD.TTN ---
Patient Problems 1. Discharge planning 2. Medication compliance 3. Knowledge deficit 4. Lack of coping skills Progress Toward Goals Provider Present: Dr. Cindy Guerin Provider Input: 11/19 patient needs to remain and has presented with more hallucinations 11/24 patient is psychiatrically improved and having less psychotic symptoms - is recommended for neurology transfer to [facility] awaiting Neurology consult Psychiatric Counselors Present: Korin Herrera LCSW Psych Therapist Input: 11/[address] [address] hearing tomorrow and is in need for more stabilization 11/24 patient is still psychotic but appearing more stable and sleeping more, it appears that [facility] may not be able to take her as a transfer per nurse report and needs to go for observation only Group Spec/RT/OT/PORTER Present: Sarbjit Leary OT Group Spec/RT/OT/PORTER Input: 11/19 occasionally attends groups - recently cannot tolerate group 11/24 attends some Korin Villa LCSW Nov 25, 2017 09:28
--- NOTE | 2017-11-25 10:05 | HHI.DS ---
Psychiatry Discharge Summary Inpatient Psychiatric care?: Yes Advance Directive: No Reason Not Provided: patient refused Mental Health AdvanceDirective: No Health Care Proxy: No Admission Admission Date Nov 13, 2017 at 09:18 Admission Diagnosis: (1) Brief psychotic disorder ICD Code: F23 - Brief psychotic disorder Brief History 32-year-old female Villar acted by this physician for current psychotic symptoms , including paranoid delusions, auditory and visual hallucinations, danger to self and danger to others. Patient has been seen in the emergency department several times over the last several days. She has a rené brandi seizure disorder and has experienced some seizures over the last several days as well. However, she presents this morning very obviously psychotic, stating there are people trying to harm her and they are with the government. She is taking food away from [id number] "stepson" mouth (the son of her boyfriend) claiming it is poisoned. She is obviously responding to internal stimuli at this time. She exhibits significant looseness of associations. Both he and she are indicating she has not had a seizure in the last day or more and no medication changes have been made. The patient's boyfriend cannot care for her and there are children in the home that the patient believes are impostors and therefore the children are at risk of harm. Tobacco Use In Past 30 Days: No Tobacco Past 30 Days Alcohol Use: Never Hospital Course Patient is a 32 y/o woman, domiciled with boyfriend and two children, unemployed on disability with no past psychiatric history, no substance abuse history with past medical history significant for seizure disorder and migraines who was has had recent ED visits due to recurrent seizures and most recently experiencing hallucinations along with disorganized behavior, paranoia , bizarre delusions, responding to internal stimuli which she was put under BA for noted symptoms and inability to care for self due to the same which she was transferred to the inpatient psychiatry unit for further evaluation and management. Patient was started on risperidone and titrated to 2mg PO BID, continued on seizure regimen as recommended by neurology edi consultant, and modified prior to discharge as the possibility of hallucination being secondary to intolerance to Keppra. Patient was noted to have decrease in hallucinations and was considered to be transferred to [facility] for further neurological workup and evaluation but did not have availability. Patient continued to improve with cessation of hallucinations but was noted to be slightly religiously preoccupied but not endorsing any behaviors that would be a danger to self or others. Patient continue with treatment and was noted to have improvement of mood, was noted to be cooperative with staff as well as being future oriented and wanted to return back to her home to be with her family. Patient was noted to have improvement of insight and judgment as well. Patient was adherent to medication regimen and recommendations as per primary medical/neurology team. Upon discharge patient stated feeling good, stated feeling okay with returning back to his family; noted to be calm and cooperative with staff. She agreed to continuing medical recommendations, treatment and attend outpatient follow up appointments for continuity of care with mental health provider as well as her outpatient neurologist. Patient; denies SI, HI, AVH or delusions. Supportive psychotherapy provided. Patient advised to call 911 or return back to the ED in case of any emergency. Patient agrees with plan. Results Blood Pressure 133 / 68 Vital Signs Date Time Temp Pulse Resp B/P (MAP) Pulse Ox O2 Delivery O2 Flow Rate FiO2 11/25/17 05:51 97.8 98 18 133/68 (89) 99 Laboratory Tests Test 11/25/17 07:33 Mean Corpuscular Hemoglobin 26.7 PG (27.0-34.0) Creatinine 1.02 MG/DL (0.50-1.00) Potassium Level 2.9 MEQ/L (3.5-5.1) Estimat Glomerular Filtration Rate 62 ML/MIN (>89) Laboratory Results Test 11/14/17 08:32 Cholesterol Level 162 MG/DL (120-200) HDL Cholesterol 55.3 MG/DL (40.0-60.0) Hemoglobin A1c 4.9 % (4.3-6.0) LDL Cholesterol 94 MG/DL (0-99) Triglycerides Level 64 MG/DL (42-150) Summary of Procedures None Pending results at discharge: No Medications # of Antipsychotic meds at D/C: 1 Approp Antipsych med options 1 - Minimum of three failed multiple trials of monotherapy. 2 - Documented plan to taper to monotherapy due to previous use of multiple meds OR cross-taper in progress at D/C. 3 - Documentation of augmentation of Clozapine. 4 - Justification other than those listed in allowable values 1-3, document here : Discharge Discharge Date: Nov 26, 2017 Discharge Diagnosis: (1) Brief psychotic disorder ICD Code: F23 - Brief psychotic disorder Pt Condition on Discharge: Stable Discharge Disposition: Discharge Home Discharge Instructions Diet Instructions: As Tolerated, No Restrictions Activities you can perform: Regular-No Restrictions Scheduled Appointment: Tevin Polo [place] Appointment Date: Nov 20, 2017 Appointment Time: 07:30am Discharge Time > 30 minutes Mental Status Examination Appearance: Appropriate Consciousness: Alert Orientation: Person, Place Motor Activity: Normal gait Speech: Unremarkable, Other Language: Adequate Fund of Knowledge: Inadequate Attention and Concentration: Adequate Memory: Impaired Mood: Appropriate Affect: Other (constricted) Thought Process & Associations: Linear Thought Content: Appropriate Hallucination Type: None Delusion Type: None Suicidal Ideation: No Suicidal Plan: No Suicidal Intention: No Homicidal Ideation: No Homicidal Plan: No Homicidal Intention: No Insight: Fair Judgment: Impulsive Discharge/Advance Care Plan Health Problems: (1) Brief psychotic disorder Goals to promote your health * To prevent worsening of your condition and complications * To maintain your health at the optimal level Directions to meet your goals Take your medications as prescribed Follow your dietary instruction Follow activity as directed Keep your appointments as scheduled Take your immunizations and boosters as scheduled If your symptoms worsen call your PCP, if no PCP go to Urgent Care Center or Emergency Room For 24/ questions related to your inpatient stay or results of tests pending at discharge, please contact Dr. Saravanan Guerin at Smoking is Dangerous to Your Health. Avoid second hand smoking Saravanan Guerin MD Nov 25, 2017 10:05
--- NOTE | 2017-11-25 11:06 | HHI.PR ---
Subjective History of Present Illness Patient feel better today awake alert and orianted. . d/w RN at bed side. still hallucinating Patient have low potassium will replace and monitor and check magnesium level Review of Systems Constitutional Constitutional: Fatigue, Weakness Vitals/Results Intake & Output 11/25/17 11/25/17 11/26/17 15:00 23:00 07:00 Intake Total 120 ml Balance 120 ml Intake Oral 120 ml Vital Signs Vital Signs Date Time Temp Pulse Resp B/P (MAP) Pulse Ox O2 Delivery O2 Flow Rate FiO2 11/25/17 05:51 97.8 98 18 133/68 (89) 99 11/24/17 17:45 97.5 101 17 120/76 (91) 99 CBC/BMP: 11/25/17 0733 11/25/17 0733 Lab Results Laboratory Tests Test 11/25/17 07:33 White Blood Count 6.9 TH/MM3 Red Blood Count 4.35 MIL/MM3 Hemoglobin 11.6 GM/DL Hematocrit 35.2 % Mean Corpuscular Volume 81.0 FL Mean Corpuscular Hemoglobin 26.7 PG Mean Corpuscular Hemoglobin Concent 32.9 % Red Cell Distribution Width 16.3 % Platelet Count 325 TH/MM3 Mean Platelet Volume 7.5 FL Neutrophils (%) (Auto) 68.9 % Lymphocytes (%) (Auto) 22.4 % Monocytes (%) (Auto) 7.0 % Eosinophils (%) (Auto) 1.0 % Basophils (%) (Auto) 0.7 % Neutrophils # (Auto) 4.7 TH/MM3 Lymphocytes # (Auto) 1.5 TH/MM3 Monocytes # (Auto) 0.5 TH/MM3 Eosinophils # (Auto) 0.1 TH/MM3 Basophils # (Auto) 0.0 TH/MM3 CBC Comment DIFF FINAL Differential Comment Blood Urea Nitrogen 8 MG/DL Creatinine 1.02 MG/DL Random Glucose 96 MG/DL Total Protein 7.8 GM/DL Albumin 4.0 GM/DL Calcium Level 9.4 MG/DL Alkaline Phosphatase 95 U/L Aspartate Amino Transf (AST/SGOT) 16 U/L Alanine Aminotransferase (ALT/SGPT) 15 U/L Total Bilirubin 0.3 MG/DL Sodium Level 138 MEQ/L Potassium Level 2.9 MEQ/L Chloride Level 104 MEQ/L Carbon Dioxide Level 26.8 MEQ/L Anion Gap 7 MEQ/L Estimat Glomerular Filtration Rate 62 ML/MIN Physical Exam General General Appearance: Well Developed, Well Nourished, No Acute Distress, Comfortable Eyes Eye Exam: Sclera White, Extraocular Movement Intact Throat Throat Exam: Oral Mucosa [place] & Moist, Oral Pharynx Normal Neck Neck Exam: Neck Supple, Trachea Midline Pulmonary Resp Exam: Clear Bilaterally, Breath Sounds Equal, No Distress Cardiology CV Exam: Regular, Normal Sinus Rhythm Gastrointestinal/Abdomen GI Exam: Soft, Non-Tender, Bowel Sounds Present Integumentary Skin Exam: Clear, Warm, Dry, Intact Extremeties Extremities Exam: No Edema Neurologic Neuro Exam: Alert, Awake, Oriented, Speech Clear, Moving All Extremities, No Focal Deficits Psychiatric Psych Exam: Appropriate Responses Assessment/Plan Assessment/Plan Assessment and Plan This is a 33-year-old female with history of seizure disorders who was recently admitted secondary to uncontrolled seizures who left AMA and was readmitted due to psychosis. Psychosis During previous admission patient was started on Abilify by psychiatry. now on Resperidal 1 mg BID. - Management per psychiatry. Patient was not able to discharge because of Hallucination. Seizure disorder Has not had further seizures. Recent study showed abnormal EEG with seizure activity. CT scan of the brain did not show anything acute. Unable to do MRI of the brain due to vagus nerve stimulator. Neurology consultation appreciated. - Continue with Lamictal and Topamax. Keppra 1000 mg twice a day per neurology. - Outpatient follow-up with neurology. Toe wound Minor wound noted on exam. - Triple antibiotic ointment daily. DVT prophylaxis: ambulation Hypokalemia will replace and monitor and check magnesium level. Discussed Condition with: Patient Stef Hicks MD Nov 25, 2017 11:06
[2017-11-25] MEDS ORDERED: POTASSIUM CHLORIDE 10 MEQ CONTROLLED RELEASE TAB PO ONE (12:00)
[2017-11-25] MEDS: POTASSIUM CHLORIDE 10 MEQ CONTROLLED RELEASE TAB PO ONE (12:15)
[2017-11-25 18:03] VITALS: BP 121/62; PULSE 102; RESP 18; TEMP 98.1; O2SAT 100
[2017-11-26] MEDS: diphenhydrAMINE HCL 50 MG CAP PO PRN (02:20)
[2017-11-26] MEDS: LORazepam 2 MG/ML VIAL IM PRN (04:52)
[2017-11-26 05:24] VITALS: BP 118/60; PULSE 95; RESP 17; TEMP 97.7; O2SAT 99
[2017-11-26 07:14] LABS: ALBUMIN 3.6 GM/DL (3.4-5.0); ALKALINE PHOSPHATASE 81 U/L (45-117); ALT (GPT) 12 U/L (10-53); AST (GOT) 10 U/L (15-37); BICARBONATE 26.4 MEQ/L (21.0-32.0); BLOOD UREA NITROGEN 6 MG/DL (7-18); CALCIUM 9.1 MG/DL (8.5-10.1); CHLORIDE 108 MEQ/L (98-107); CREATININE 0.89 MG/DL (0.50-1.00); GLOMERULAR FILTRATION RATE 73 ML/MIN (>89); GLUCOSE,RANDOM 88 MG/DL (74-106); SODIUM (NA) 140 MEQ/L (136-145); TOTAL BILIRUBIN ADULT 0.2 MG/DL (0.2-1.0); TOTAL PROTEIN 6.9 GM/DL (6.4-8.2)
[2017-11-26 07:24] LABS: AUTOMATED NEUTROPHIL # 3.7 TH/MM3 (1.8-7.7); BASOPHIL # 0.1 TH/MM3 (0-0.2); BASOPHIL % 0.9 % (0.0-2.0); EOSINOPHIL # 0.1 TH/MM3 (0-0.4); EOSINOPHIL % 0.9 % (0.0-4.0); HEMATOCRIT 31.4 % (35.0-46.0); HEMOGLOBIN 10.5 GM/DL (11.6-15.3); LYMPH % 30.5 % (9.0-44.0); LYMPHOCYTE # 1.9 TH/MM3 (1.0-4.8); MEAN CELL VOLUME 80.4 FL (80.0-100.0); MEAN CORPUSCULAR HEMOGLOBIN 26.9 PG (27.0-34.0); MEAN CORPUSCULAR HGB CONC 33.5 % (32.0-36.0); MEAN PLATELET VOLUME 7.5 FL (7.0-11.0); MONO % 8.5 % (0.0-8.0); MONOCYTE # 0.5 TH/MM3 (0-0.9); NEUT % 59.2 % (16.0-70.0); PLATELET COUNT 268 TH/MM3 (150-450); RED BLOOD COUNT 3.91 MIL/MM3 (4.00-5.30); RED CELL DISTRIBUTION WIDTH 15.8 % (11.6-17.2); WHITE BLOOD COUNT 6.2 TH/MM3 (4.0-11.0)
[2017-11-26] MEDS: TOPIRAMATE 25 MG TAB PO SCH (08:18)
[2017-11-26] MEDS: risperiDONE 1 MG TAB PO SCH (08:18)
[2017-11-26] MEDS: FOLIC ACID 1 MG TAB PO SCH (08:18)
[2017-11-26] MEDS: NEOMYCIN/POLYMYXIN/BACITRACIN OINT 15 GM TUBE TOPICAL SCH (08:18)
[2017-11-26] MEDS: lamoTRIgine 100 MG TAB PO SCH (08:18)
--- NOTE | 2017-11-26 08:46 | HHI.PR ---
Subjective History of Present Illness Patient feel better today awake alert and orianted. . d/w RN at bed side. Patient low potassium resolved checked magnesium level was 2.2 ok to discharge from medical stand point. Review of Systems Constitutional Constitutional: Fatigue, Weakness Vitals/Results Vital Signs Vital Signs Date Time Temp Pulse Resp B/P (MAP) Pulse Ox O2 Delivery O2 Flow Rate FiO2 11/26/17 05:24 97.7 95 17 118/60 (79) 99 11/25/17 18:03 98.1 102 18 121/62 (81) 100 CBC/BMP: 11/26/17 0603 11/26/17 0603 Lab Results Laboratory Tests Test 11/26/17 06:03 White Blood Count 6.2 TH/MM3 Red Blood Count 3.91 MIL/MM3 Hemoglobin 10.5 GM/DL Hematocrit 31.4 % Mean Corpuscular Volume 80.4 FL Mean Corpuscular Hemoglobin 26.9 PG Mean Corpuscular Hemoglobin Concent 33.5 % Red Cell Distribution Width 15.8 % Platelet Count 268 TH/MM3 Mean Platelet Volume 7.5 FL Neutrophils (%) (Auto) 59.2 % Lymphocytes (%) (Auto) 30.5 % Monocytes (%) (Auto) 8.5 % Eosinophils (%) (Auto) 0.9 % Basophils (%) (Auto) 0.9 % Neutrophils # (Auto) 3.7 TH/MM3 Lymphocytes # (Auto) 1.9 TH/MM3 Monocytes # (Auto) 0.5 TH/MM3 Eosinophils # (Auto) 0.1 TH/MM3 Basophils # (Auto) 0.1 TH/MM3 CBC Comment DIFF FINAL Differential Comment Blood Urea Nitrogen 6 MG/DL Creatinine 0.89 MG/DL Random Glucose 88 MG/DL Total Protein 6.9 GM/DL Albumin 3.6 GM/DL Calcium Level 9.1 MG/DL Alkaline Phosphatase 81 U/L Aspartate Amino Transf (AST/SGOT) 10 U/L Alanine Aminotransferase (ALT/SGPT) 12 U/L Total Bilirubin 0.2 MG/DL Sodium Level 140 MEQ/L Potassium Level 4.1 MEQ/L Chloride Level 108 MEQ/L Carbon Dioxide Level 26.4 MEQ/L Anion Gap 6 MEQ/L Estimat Glomerular Filtration Rate 73 ML/MIN Physical Exam General General Appearance: Well Developed, Well Nourished, No Acute Distress, Comfortable Eyes Eye Exam: Sclera White, Extraocular Movement Intact Throat Throat Exam: Oral Mucosa [place] & Moist, Oral Pharynx Normal Neck Neck Exam: Neck Supple, Trachea Midline Pulmonary Resp Exam: Clear Bilaterally, Breath Sounds Equal, No Distress Cardiology CV Exam: Regular, Normal Sinus Rhythm Gastrointestinal/Abdomen GI Exam: Soft, Non-Tender, Bowel Sounds Present Integumentary Skin Exam: Clear, Warm, Dry, Intact Extremeties Extremities Exam: No Edema Neurologic Neuro Exam: Alert, Awake, Oriented, Speech Clear, Moving All Extremities, No Focal Deficits Psychiatric Psych Exam: Appropriate Responses Assessment/Plan Assessment/Plan Assessment and Plan This is a 33-year-old female with history of seizure disorders who was recently admitted secondary to uncontrolled seizures who left AMA and was readmitted due to psychosis. Psychosis During previous admission patient was started on Abilify by psychiatry. now on Resperidal 1 mg BID. - Management per psychiatry. Patient was not able to discharge because of Hallucination. Seizure disorder Has not had further seizures. Recent study showed abnormal EEG with seizure activity. CT scan of the brain did not show anything acute. Unable to do MRI of the brain due to vagus nerve stimulator. Neurology consultation appreciated. - Continue with Lamictal and Topamax. Keppra 1000 mg twice a day per neurology. - Outpatient follow-up with neurology. Toe wound Minor wound noted on exam. - Triple antibiotic ointment daily. DVT prophylaxis: ambulation Hypokalemia resolved and checked magnesium level. was 2.2 ok to discharge from medical stand point Discussed Condition with: Patient Stef Hicks MD Nov 26, 2017 08:46
== END 2017-11-26 15:51 | disposition home or self-care (01) | DRG 885 ==
LOC: NEPE 06:39 → NEDA 09:18 → H4EA 10:22
PROVIDERS: ADMIT Student in an Organized Health Care Education/Training Program; ATTEND Student in an Organized Health Care Education/Training Program
DX: F23 Brief psychotic disorder (principal); G40.909 Epilepsy, unspecified, not intractable, without status epilepticus; E87.6 Hypokalemia; Z96.89 Presence of other specified functional implants; S99.829A Other specified injuries of unspecified foot, initial encounter; X58.XXXA Exposure to other specified factors, initial encounter
CPT/HCPCS: 80048; 80053; 80061; 80076; 80307; 81001; 82140; 82306; 82550; 82607; 83036; 83735; 84443; 84703; 85025; 86592; 87086; 93005; 95819; 96361; 96372; 96374; 96375; 99285; G0378; J1200; J1630; J1650; J2060; J7030; Q0163

== ENCOUNTER 2017-11-27 17:01 | Emergency (ER) | payer OTHER ==
[~2017-11-27 17:01] MED LIST changes: -ABIL10TA8 PO; -ENOX40P SQ; +FOLI1TAB6 PO; -FOLI800T PO; -KEPP750T PO; -LORA0.5T PO; -MAGN400T2 PO; -ONFI10TA PO; -PROT40TA PO; +RISP2TAB2 PO; -SENN8.6T36 PO; -TIZA2CAP3 PO; +TRIPOIN TOPICAL
[2017-11-27 17:22] VITALS: BP 123/78; PULSE 88; RESP 18; TEMP 97.9; O2SAT 99
--- NOTE | 2017-11-27 18:16 | PD ---
HPI Chief Complaint: Numbness/Tingling Time Seen by Provider: 17:54 Travel History International Travel<30 days: No Contact w/Intl Traveler<30days: No Traveled to known affect area: No History of Present Illness HPI 32-year-old female presents emergency department complaining of left arm numbness since today. States that she just woke up with this. Denies trauma. She does have full machine i cutter strength. Also states he has chest pain but is unable to characterize this fully. States this started this morning and is in the middle of the chest. She is a rather poor historian but denies any other complaints today. PFSH Past Medical History Arthritis: No Asthma: No Autoimmune Disease: No Blood Disorders: No Anxiety: Yes Depression: Yes Heart Rhythm Problems: No Cancer: No Cardiovascular Problems: No Chemotherapy: No Chest Pain: No Congestive Heart Failure: No COPD: No Cerebrovascular Accident: No Diabetes: No Diminished Hearing: No Endocrine: No Gastrointestinal Disorders: No GERD: No Genitourinary: No Headaches: No Hiatal Hernia: No Heparin Induced Thrombocytopen: No Hypertension: No Immune Disorder: No Implanted Vascular Access Dvce: Yes Kidney Stones: No Musculoskeletal: No Neurologic: Yes Psychiatric: No Reproductive: No Respiratory: No Immunizations Current: Yes Migraines: Yes Radiation Therapy: No Renal Failure: No Seizures: Yes Sickle Cell Disease: No Sleep Apnea: No Thyroid Disease: No Ulcer: No ?: Not Menopausal: No : 2 Para: 2 Ovarian Cysts: Yes Past Surgical History Abdominal Surgery: No AICD: No Arteriovenous Shunt: No Body Medical Devices: Vegus Nerve stimulator Cardiac Surgery: No Ear Surgery: No Endocrine Surgery: No Eye Surgery: No Genitourinary Surgery: No Gynecologic Surgery: No Insulin Pump: No Joint Replacement: No Neurologic Surgery: Yes (VAGAL NERVE STIMULATOR) Oral Surgery: No Pacemaker: No Thoracic Surgery: No Other Surgery: Yes (VNS IMPLANT ) Social History Alcohol Use: No Tobacco Use: No Substance Use: No Allergies-Medications (Allergen,Severity, Reaction): Coded Allergies: ceftriaxone (Verified Allergy, Mild, ITCHING, REDDNESS, 11/11/17) MRI PRECAUTION (Verified Adverse Reaction, Unknown, VAGUS NERVE STIMULATOR , 11/11/17) NERVE STIMULATOR IN CHEST. PT HAS NO PRODUCT INFO. EXAM CX'D.NURSE EARL INFORMED/JLA Reported Meds & Prescriptions Reported Meds & Active Scripts Active Risperidone 2 Mg Tab 2 Mg PO Q12HR Folic Acid 1 Mg Tablet 1 Mg PO DAILY 30 Days Triple Antibiotic 3.5-400-5000 (Woxcynvd-Aorbbdpdcq-Uamyibgsn) 3.5 Mg-400 Unit-5 ,000 Unit/Gram Oin 1 Applic TOPICAL DAILY 30 Days Topamax (Topiramate) 25 Mg Tab 25 Mg PO Q12HR 30 Days Lamotrigine 200 Mg Tab 200 Mg PO BID Review of Systems Except as stated in HPI: all other systems reviewed are Neg Physical Exam Narrative GENERAL: Well-nourished, well-developed patient. SKIN: Focused skin assessment warm/dry. HEAD: Normocephalic. EYES: No scleral icterus. No injection or drainage. NECK: Supple, trachea midline. No JVD or lymphadenopathy. CARDIOVASCULAR: Regular rate and rhythm without murmurs, gallops, or rubs. RESPIRATORY: Breath sounds equal bilaterally. No accessory muscle use. GASTROINTESTINAL: Abdomen soft, non-tender, nondistended. MUSCULOSKELETAL: No cyanosis, or edema. BACK: Nontender without obvious deformity. No CVA tenderness. Data Data Last Documented VS Vital Signs Date Time Temp Pulse Resp B/P (MAP) Pulse Ox O2 Delivery O2 Flow Rate FiO2 11/27/17 18:29 82 18 131/75 (93) 100 Room Air 11/27/17 17:22 97.9 Orders Orders Blood Glucose (11/27/17 17:33) Oximetry (11/27/17 17:33) Iv Access Insert/Monitor (11/27/17 17:33) Ecg Monitoring (11/27/17 17:33) Oxygen Administration (11/27/17 17:33) Electrocardiogram (11/27/17 ) MDM Medical Decision Making Medical Screen Exam Complete: Yes Emergency Medical Condition: Yes Differential Diagnosis left arm neuralgia, neuropathy, carpel tunnel syndrome Narrative Course 32-year-old female presents emergency department complaining of left arm numbness since today. States that she just woke up with this. Denies trauma. She does have full machine i cutter strength. Also states he has chest pain but is unable to characterize this fully. States this started this morning and is in the middle of the chest. She is a rather poor historian but denies any other complaints today. After extensive review of the EMR, it appears that patient has been in this hospital consistently for the last 2-3 weeks. Vital signs stable. Physical exam findings consistent with a neuropathy versus neuralgia of the left upper extremity. No evidence of trauma although there are track love from the recent previous hospitalizations. Dr. Ybarra reviewed the EKG and it showed Sinus rhythm without ST elevation or depression, nonspecific ST changes. I saw the patient with my attending, Dr. Ybarra who agreed with the plan. Pt will be discharged home and advised to follow up with her PCP. Return to the ED for worsening or persistent symptoms. Diagnosis Primary Impression: Neuralgia Additional Impression: Atypical chest pain Referrals: [facility] Neurologist Additional Instructions: Follow up with a neurologist YANIQUE for your symptoms. Follow up with [facility] for your healthcare if you do not have a primary care physician. Follow up with your primary care physician within 2-3 days. If your symptoms persist or worsen, return to the emergency department. Disposition: 01 DISCHARGE HOME Condition: Stable Lynn Red Nov 27, 2017 18:16
[2017-11-27 18:29] VITALS: BP 131/75; PULSE 82; RESP 18; O2SAT 100
--- NOTE | 2017-11-28 21:19 | EKG ---
Date Performed: 11/27/2017 Time Performed: 18:33:50 PTAGE: 32 years EKG: Sinus rhythm Left atrial abnormality Baseline artifact Compared to previous tracing, left atrial abnormality is n ew ABNORMAL RHYTHM ECG NO PREVIOUS TRACING DOCTOR: Sony David Interpretating Date/Time 11/28/2017 21:18:40
== END 2017-11-27 19:10 | disposition home or self-care (01) ==
LOC: NEPC 17:01
DX: M79.2 Neuralgia and neuritis, unspecified (principal); R07.89 Other chest pain; F41.9 Anxiety disorder, unspecified; F32.9 Major depressive disorder, single episode, unspecified; R56.9 Unspecified convulsions; R94.31 Abnormal electrocardiogram [ECG] [EKG]
CPT/HCPCS: 93005